=== PATIENT | female | born 1945 | race Two or more races ===

== ENCOUNTER 2018-11-20 18:06 | Emergency (ER) | payer OTHER ==
[~2018-11-20] VITALS: Ht 142.2 cm; Wt 45.4 kg
[2018-11-20 19:40] LABS: BASO # 0.1 x10^3/uL (0.0-0.2); BASO % 1 % (0-3); EOS # 0.5 x10^3/uL (0.0-0.7); EOS % 5 % (0-3); HEMATOCRIT 36.8 % (36.0-47.0); HEMOGLOBIN 12.6 g/dL (12.0-15.5); LYMPH # 5.2 x10^3/uL (1.0-4.8); LYMPH % 48 % (24-48); MEAN CORPUSCULAR HEMOGLOBIN 33 pg (25-35); MEAN CORPUSCULAR HGB CONC 34 g/dL (31-37); MEAN CORPUSCULAR VOLUME 96 fL (79-100); MONO # 0.8 x10^3/uL (0.0-1.1); MONO % 7 % (0-9); NEUT # 4.2 x10^3/uL (1.8-7.7); NEUT % 39 % (31-73); PLATELET COUNT 170 x10^3/uL (140-400); RED BLOOD COUNT 3.83 x10^6/uL (3.50-5.40); RED CELL DISTRIBUTION WIDTH 13.5 % (11.5-14.5); WHITE BLOOD COUNT 10.7 x10^3/uL (4.0-11.0)
[2018-11-20 19:49] LABS: PROTHROMBIN TIME PATIENT 13.7 SEC (11.7-14.0)
[2018-11-20 19:50] LABS: CALCIUM 9.2 mg/dL (8.5-10.1); GFR 54.1; POTASSIUM 4.2 mmol/L (3.5-5.1)
[2018-11-20 19:56] LABS: ALBUMIN 3.1 g/dL (3.4-5.0); ALBUMIN/GLOBULIN RATIO 0.6 (1.0-1.7); MAGNESIUM 1.4 mg/dL (1.8-2.4); TOTAL BILIRUBIN 0.4 mg/dL (0.2-1.0); TOTAL PROTEIN 8.2 g/dL (6.4-8.2)
[2018-11-20] MEDS ORDERED: cloNIDine HCL 0.1 MG TABLET PO ONE (20:00)
[2018-11-20] MEDS ORDERED: DEXAMETHASONE SOD PHOS 20 MG/5 ML VIAL. IV ONE (20:00)
[2018-11-20] MEDS ORDERED: ONDANSETRON PF 4 MG/2 ML VIAL. IV ONE (20:00)
[2018-11-20] MEDS ORDERED: diphenhydrAMINE 50 MG/ML VIAL IVP ONE (20:00)
[2018-11-20] MEDS ORDERED: LABETALOL 20 MG/4 ML DISP.SYRIN. IVP ONE (20:00)
[2018-11-20 20:19] LABS: BILIRUBIN,URINE NEGATIVE (NEG); CLARITY,URINE CLEAR; COLOR,URINE YELLOW; NITRITE,URINE NEGATIVE (NEG); PROTEIN,URINE 100 mg/dL (NEG-TRACE); UROBILINOGEN,URINE 0.2 mg/dL (0.2 mg/dL)
[2018-11-20 20:23] LABS: BACTERIA,URINE 0 /HPF (0-FEW); SQUAMOUS EPITHELIAL CELL,UR OCC /LPF; WBC,URINE 0 /HPF (0-4)
[2018-11-20] MEDS ORDERED: MAGNESIUM SULFATE 2GM 50 ML IV ONE (21:00)
--- NOTE | 2018-11-20 21:07 | RAD ---
Examination: CT HEAD WO CONTRAST History: Headache and hypertension Comparison/Correlation: None Findings: Axial images of the head were obtained without contrast. Atrophy is present. No intracranial hemorrhage, midline shift, or mass effect. Motion does limit evaluation at the skull base level. Mucosal thickening of ethmoid air cells is mild. Impression: No suspicious process. PQRS Compliance Statement: One or more of the following individualized dose reduction techniques were utilized for this examination: 1. Automated exposure control 2. Adjustment of the mA and/or kV according to patient size 3. Use of iterative reconstruction technique Electronically signed by: Elvin Davis MD (11/20/2018 9:04 PM) [facility]
--- NOTE | 2018-11-20 21:55 | PHYS DOC ---
Past Medical History Past Medical History: Asthma, GERD, Hypertension Past Surgical History: No Surgical History Smoking: Quit Greater Than 1 Year Alcohol Use: Occasionally Drug Use: None Adult General Chief Complaint Chief Complaint: HYPERTENSION HPI HPI 73 y/o female presents with report of CASTILLO, HTN, and cough over the last few days. Reports worse tonight. Patient reports complaince with her blood pressure medications. Denies fever/chills. Denies trauma. Denies neck pain. Denies nausea or vomiting . Review of Systems Review of Systems Constitutional: Denies fever or chills Eyes: Denies redness or eye pain HENT: Denies nasal congestion or sore throat Respiratory: Reports cough; denies shortness of breath Cardiovascular: Denies chest pain or palpitations GI: Denies abdominal pain, nausea, or vomiting : Denies dysuria or hematuria Musculoskeletal: Denies back pain or joint pain Integument: Denies rash or skin lesions Neurologic:Reports headache; denies focal weakness or sensory changes Complete systems were reviewed and found to be within normal limits, except as documented in this note. Current Medications Current Medications Current Medications Medications (Trade) Dose Ordered Sig/Sonia Start Time Stop Time Status Last Admin Dose Admin Clonidine HCl (Catapres) 0.1 mg 1X ONCE 11/20/18 20:00 11/20/18 20:01 DC 11/20/18 19:44 0.1 MG Dexamethasone Sodium Phosphate (Decadron) 10 mg 1X ONCE 11/20/18 20:00 11/20/18 20:01 DC 11/20/18 20:15 10 MG Diphenhydramine HCl (Benadryl) 25 mg 1X ONCE 11/20/18 20:00 11/20/18 20:01 DC 11/20/18 20:15 25 MG Labetalol HCl (Normodyne Iv Push) 10 mg 1X ONCE 11/20/18 20:00 11/20/18 20:01 DC 11/20/18 19:44 10 MG Magnesium Sulfate 50 ml @ 25 mls/hr 1X ONCE 11/20/18 21:00 11/20/18 22:49 DC 11/20/18 20:53 25 MLS/HR Ondansetron HCl (Zofran) 4 mg 1X ONCE 11/20/18 20:00 11/20/18 20:01 DC 11/20/18 20:15 4 MG Allergies Allergies Allergies Coded Allergies Type Severity Reaction Last Updated Verified amlodipine Allergy Intermediate 11/20/18 Yes Physical Exam Physical Exam Constitutional: Well developed, well nourished, no acute distress, non-toxic appearance HENT: Normocephalic, atraumatic, oropharynx moist Eyes: PERRL, EOMI, conjunctiva normal, no discharge, no nystagmus Neck: Normal range of motion, no tenderness, supple Cardiovascular: Heart rate normal, regular rhythm Lungs & Thorax: Bilateral breath sounds diminished at bases, no wheezing Abdomen: Soft, no tenderness Skin: Warm, dry, no erythema, no rash Extremities: No tenderness, ROM intact, no edema Neurologic: Alert and oriented X 3, normal motor function, normal sensory function, no focal deficits noted Psychologic: Affect normal, judgement normal, Current Patient Data Vital Signs Vital Signs Date Time Temp Pulse Resp B/P (MAP) Pulse Ox O2 Delivery O2 Flow Rate FiO2 11/20/18 22:30 69 97 11/20/18 19:44 212/97 11/20/18 19:00 98.8 20 Room Air 98.8 Lab Values Laboratory Tests Test 11/20/18 19:15 11/20/18 19:55 White Blood Count 10.7 x10^3/uL (4.0-11.0) Red Blood Count 3.83 x10^6/uL (3.50-5.40) Hemoglobin 12.6 g/dL (12.0-15.5) Hematocrit 36.8 % (36.0-47.0) Mean Corpuscular Volume 96 fL (79-100) Mean Corpuscular Hemoglobin 33 pg (25-35) Mean Corpuscular Hemoglobin Concent 34 g/dL (31-37) Red Cell Distribution Width 13.5 % (11.5-14.5) Platelet Count 170 x10^3/uL (140-400) Neutrophils (%) (Auto) 39 % (31-73) Lymphocytes (%) (Auto) 48 % (24-48) Monocytes (%) (Auto) 7 % (0-9) Eosinophils (%) (Auto) 5 % (0-3) H Basophils (%) (Auto) 1 % (0-3) Neutrophils # (Auto) 4.2 x10^3/uL (1.8-7.7) Lymphocytes # (Auto) 5.2 x10^3/uL (1.0-4.8) H Monocytes # (Auto) 0.8 x10^3/uL (0.0-1.1) Eosinophils # (Auto) 0.5 x10^3/uL (0.0-0.7) Basophils # (Auto) 0.1 x10^3/uL (0.0-0.2) Prothrombin Time 13.7 SEC (11.7-14.0) Prothrombin Time INR 1.1 (0.8-1.1) Activated Partial Thromboplast Time 30 SEC (24-38) Sodium Level 136 mmol/L (136-145) Potassium Level 4.2 mmol/L (3.5-5.1) Chloride Level 102 mmol/L (98-107) Carbon Dioxide Level 25 mmol/L (21-32) Anion Gap 9 (6-14) Blood Urea Nitrogen 7 mg/dL (7-20) Creatinine 1.0 mg/dL (0.6-1.0) Estimated GFR (Cockcroft-Gault) 54.1 BUN/Creatinine Ratio 7 (6-20) Glucose Level 119 mg/dL (70-99) H Calcium Level 9.2 mg/dL (8.5-10.1) Magnesium Level 1.4 mg/dL (1.8-2.4) L Total Bilirubin 0.4 mg/dL (0.2-1.0) Aspartate Amino Transferase (AST) 60 U/L (15-37) H Alanine Aminotransferase (ALT) 39 U/L (14-59) Alkaline Phosphatase 112 U/L (46-116) Creatine Kinase 95 U/L (26-192) Creatine Kinase MB (Mass) 0.8 ng/mL (0.0-3.6) Creatine Kinase MB Relative Index 0.8 % (0-4) Troponin I Quantitative < 0.017 ng/mL (0.000-0.055) Total Protein 8.2 g/dL (6.4-8.2) Albumin 3.1 g/dL (3.4-5.0) L Albumin/Globulin Ratio 0.6 (1.0-1.7) L Lipase 137 U/L (73-393) Urine Collection Type Unknown Urine Color Yellow Urine Clarity Clear Urine pH 7.0 Urine Specific [place] <=1.005 Urine Protein 100 mg/dL (NEG-TRACE) Urine Glucose (UA) Negative mg/dL (NEG) Urine Ketones (Stick) Negative mg/dL (NEG) Urine Blood Trace (NEG) Urine Nitrite Negative (NEG) Urine Bilirubin Negative (NEG) Urine Urobilinogen Dipstick 0.2 mg/dL (0.2 mg/dL) Urine Leukocyte Esterase Negative (NEG) Urine RBC 3-5 /HPF (0-2) Urine WBC 0 /HPF (0-4) Urine Squamous Epithelial Cells Occ /LPF Urine Bacteria 0 /HPF (0-FEW) Laboratory Tests 11/20/18 19:15 Laboratory Tests 11/20/18 19:15 EKG EKG @1908 NSR at 68bpm, NO ST elevation, QRS 76ms, QT/QTc 434/462ms Radiology/Procedures Radiology/Procedures PROCEDURE: CT HEAD WO CONTRAST Examination: CT HEAD WO CONTRAST History: Headache and hypertension Comparison/Correlation: None Findings: Axial images of the head were obtained without contrast. Atrophy is present. No intracranial hemorrhage, midline shift, or mass effect. Motion does limit evaluation at the skull base level. Mucosal thickening of ethmoid air cells is mild. Impression: No suspicious process. PQRS Compliance Statement: One or more of the following individualized dose reduction techniques were utilized for this examination: 1. Automated exposure control 2. Adjustment of the mA and/or kV according to patient size 3. Use of iterative reconstruction technique Electronically signed by: Elvin Davis MD (11/20/2018 9:04 PM) [facility] CXR 2 view (preliminary interpretation by ED physician) NO acute process Course & Med Decision Making Course & Med Decision Making Pertinent Labs and Imaging studies reviewed. (See chart for details) Patient presents with report of CASTILLO, cough, and generalized malaise over the last few days. Reports associated elevated blood pressure. BP addressed. Labs obtained and posted to chart. CT head without acute process. Patient with interval improvement. Patient stable for discharge with outpatient follow-up with PCP. Discussed findings and plan with patient and family, who acknowledge understanding and agreement. Dragon Disclaimer Dragon Disclaimer This electronic medical record was generated, in whole or in part, using a voice recognition dictation system. Departure Departure Impression: Primary Impression: Hypertension Additional Impression: Hypomagnesemia Disposition: 01 HOME, SELF-CARE Condition: IMPROVED Referrals: NO PCP (PCP) Patient Instructions: Hypertension, [id number], Hypomagnesemia Scripts Clonidine Hcl (CLONIDINE HCL) 0.1 Mg Tablet 0.1 MG PO BID PRN for ELEVATED BP, SEE COMMENTS, #14 TAB Take for systolic blood pressure (upper number) greater than 180 or for diastolic blood pressure (lower number) greater than 100. Prov: SHAWNA VILLEGAS DO 11/20/18 Problem Qualifiers Primary Impression: Hypertension Hypertension type: unspecified Qualified Codes: I10 - Essential (primary) hypertension SHAWNA VILLEGAS DO Nov 20, 2018 21:55
[2018-11-20] MEDS ORDERED: CLON0.1T PO (22:01)
[2018-11-20 22:30] VITALS: BP 133/71
--- NOTE | 2018-11-21 06:22 | EKG ---
[facility] [address] [place] [address] Test Date: 2018-11-20 Test Time: 19:08:08 Pat Name: MOSES RODRIGUEZ Department: Room: Gender: F [employer] Clerk: : 1945 Requested By: SHAWNA VILLEGAS Order Number: [id number] Reading MD: Measurements Intervals [place] Rate: 67 P: 141 CT: 172 QRS: -149 QRSD: 76 T: 171 QT: 434 QTc: 461 Interpretive Statements SUPRAVENTRICULAR RHYTHM ABNORMAL RIGHT SUPERIOR AXIS DEVIATION S1,S2,S3 PATTERN CONSIDER RIGHT VENTRICULAR HYPERTROPHY QRS(T) CONTOUR ABNORMALITY CONSIDER ANTEROSEPTAL MYOCARDIAL DAMAGE CONSISTENT WITH HIGH LATERAL INFARCT AGE UNDETERMINED T ABNORMALITY IN INFERIOR LEADS ABNORMAL ECG No previous ECG available for comparison
--- NOTE | 2018-11-21 07:59 | RAD ---
CHEST PA LATERAL History: Cough Comparison: None. Findings: No consolidation or pleural effusion. Normal heart size. Chronic appearing mid thoracic vertebral body compression deformities. Impression: 1. No acute cardiopulmonary process. Electronically signed by: Serafin Lerner DO (11/21/2018 7:57 AM) [id number]
== END 2018-11-20 22:49 | disposition home or self-care (01) ==
LOC: ER 18:06
DX: I10 Essential (primary) hypertension (principal); E83.42 Hypomagnesemia; R51 Headache; K21.9 Gastro-esophageal reflux disease without esophagitis; J45.909 Unspecified asthma, uncomplicated; Z87.891 Personal history of nicotine dependence; Z88.8 Allergy status to other drugs, medicaments and biological substances
CPT/HCPCS: 36415; 70450; 71046; 80053; 81001; 82553; 83690; 83735; 84484; 85025; 85610; 85730; 93005; 96365; 96375; 99285; J1100; J1200; J2405; J3475; J3490

== ENCOUNTER 2018-12-27 14:51 | Emergency (ER) | payer OTHER ==
[~2018-12-27] VITALS: Ht 142.2 cm; Wt 45.4 kg
[~2018-12-27 14:51] MED LIST: CLON0.1T PO
[2018-12-27] MEDS ORDERED: hydrALAZINE 25 MG TABLET PO SCH (15:15)
[2018-12-27] MEDS ORDERED: cloNIDine HCL 0.1 MG TABLET PO ONE (15:15)
--- NOTE | 2018-12-27 15:23 | PHYS DOC ---
Past Medical History Past Medical History: Asthma, GERD, Hypertension (JUNIOR TSANG APRN) Past Surgical History: No Surgical History (JUNIOR TSANG APRN) Alcohol Use: Occasionally Drug Use: None (JUNIOR TSANG APRN) Adult General Chief Complaint Chief Complaint: HYPERTENSION HPI HPI Patient is a 73 year old female who presents with cough, headache, hypertension x 2 days. Patient was here on 11/2018 and give n clonidine prescription for hypertension. Son states that the patient is out of the medication. When asked if the patient has followed up to receive blood pressure medication from a primary physician the son states no she has a appointment in 2 days. I asked with who and he states, "we are new here and I have just been taking her all over." The patient denies dizziness, syncope, soa, chest pain, visual changes, numbness or tingling, vomiting, nausea, abdominal pain, back pain. (JUNIOR TSANG APRN) Review of Systems Review of Systems Respiratory: cough or denies shortness of breath [] Cardiovascular: No additional information not addressed in HPI [] Neurologic: headache, denies focal weakness or sensory changes [] All other systems were reviewed and found to be within normal limits, except as documented in this note. (JUNIOR TSANG APRN) Current Medications Current Medications Current Medications Medications (Trade) Dose Ordered Sig/Sonia Start Time Stop Time Status Last Admin Dose Admin Clonidine HCl (Catapres) 0.1 mg 1X ONCE 12/27/18 15:15 12/27/18 15:10 DC Hydralazine HCl (Apresoline) 25 mg 1X 12/27/18 15:15 12/27/18 18:02 DC 12/27/18 15:54 25 MG Ketorolac Tromethamine (Toradol 30mg Vial) 30 mg 1X ONCE 12/27/18 16:45 12/27/18 16:46 DC 12/27/18 16:53 30 MG (SHANNON NATHAN MD) Allergies Allergies Allergies Coded Allergies Type Severity Reaction Last Updated Verified amlodipine Allergy Intermediate 11/20/18 Yes (SHANNON NATHAN MD) Physical Exam Physical Exam Constitutional: Well developed, well nourished, no acute distress, non-toxic appearance. [] HENT: Normocephalic, atraumatic, bilateral external ears normal, oropharynx moist, no oral exudates, nose normal. [] Eyes: PERRLA, EOMI, conjunctiva normal, no discharge. [] Cardiovascular:Heart rate regular rhythm, no murmur [] Lungs & Thorax: Bilateral breath sounds clear to auscultation [] Abdomen: Bowel sounds normal, soft, no tenderness, no masses, no pulsatile masses. [] Skin: Warm, dry, no erythema, no rash. [] Back: No tenderness, no CVA tenderness. [] Extremities: No tenderness, no cyanosis, no clubbing, ROM intact, no edema. [] Neurologic: Alert and oriented X 3, normal motor function, normal sensory function, no focal deficits noted. [] Psychologic: Affect normal, judgement normal, mood normal. Normal Physical Exam[] (JUNIOR TSANG APRN) Current Patient Data Vital Signs Vital Signs Date Time Temp Pulse Resp B/P (MAP) Pulse Ox O2 Delivery O2 Flow Rate FiO2 12/27/18 17:30 66 18 98 12/27/18 15:54 177/105 12/27/18 15:02 97.2 Room Air 97.2 (SHANNON NATHAN MD) Lab Values Laboratory Tests Test 12/27/18 15:16 12/27/18 16:48 White Blood Count 7.8 x10^3/uL (4.0-11.0) Red Blood Count 3.59 x10^6/uL (3.50-5.40) Hemoglobin 11.6 g/dL (12.0-15.5) L Hematocrit 34.5 % (36.0-47.0) L Mean Corpuscular Volume 96 fL (79-100) Mean Corpuscular Hemoglobin 32 pg (25-35) Mean Corpuscular Hemoglobin Concent 34 g/dL (31-37) Red Cell Distribution Width 13.3 % (11.5-14.5) Platelet Count 140 x10^3/uL (140-400) Neutrophils (%) (Auto) 41 % (31-73) Lymphocytes (%) (Auto) 47 % (24-48) Monocytes (%) (Auto) 7 % (0-9) Eosinophils (%) (Auto) 4 % (0-3) H Basophils (%) (Auto) 1 % (0-3) Neutrophils # (Auto) 3.2 x10^3/uL (1.8-7.7) Lymphocytes # (Auto) 3.7 x10^3/uL (1.0-4.8) Monocytes # (Auto) 0.6 x10^3/uL (0.0-1.1) Eosinophils # (Auto) 0.3 x10^3/uL (0.0-0.7) Basophils # (Auto) 0.0 x10^3/uL (0.0-0.2) Sodium Level 142 mmol/L (136-145) Potassium Level 4.1 mmol/L (3.5-5.1) Chloride Level 106 mmol/L (98-107) Carbon Dioxide Level 23 mmol/L (21-32) Anion Gap 13 (6-14) Blood Urea Nitrogen 12 mg/dL (7-20) Creatinine 1.0 mg/dL (0.6-1.0) Estimated GFR (Cockcroft-Gault) 54.1 BUN/Creatinine Ratio 12 (6-20) Glucose Level 97 mg/dL (70-99) Calcium Level 8.3 mg/dL (8.5-10.1) L Total Bilirubin 0.3 mg/dL (0.2-1.0) Aspartate Amino Transferase (AST) 65 U/L (15-37) H Alanine Aminotransferase (ALT) 35 U/L (14-59) Alkaline Phosphatase 115 U/L (46-116) Troponin I Quantitative < 0.017 ng/mL (0.000-0.055) Total Protein 7.4 g/dL (6.4-8.2) Albumin 3.1 g/dL (3.4-5.0) L Albumin/Globulin Ratio 0.7 (1.0-1.7) L Urine Collection Type Unknown Urine Color Yellow Urine Clarity Clear Urine pH 6.0 Urine Specific [place] <=1.005 Urine Protein 30 mg/dL (NEG-TRACE) Urine Glucose (UA) Negative mg/dL (NEG) Urine Ketones (Stick) Negative mg/dL (NEG) Urine Blood Trace (NEG) Urine Nitrite Negative (NEG) Urine Bilirubin Negative (NEG) Urine Urobilinogen Dipstick 0.2 mg/dL (0.2 mg/dL) Urine Leukocyte Esterase Negative (NEG) Urine RBC 1-2 /HPF (0-2) Urine WBC 0 /HPF (0-4) Urine Squamous Epithelial Cells Few /LPF Urine Bacteria 0 /HPF (0-FEW) Urine Opiates Screen Neg (NEG) Urine Methadone Screen Neg (NEG) Urine Barbiturates Neg (NEG) Urine Phencyclidine Screen Neg (NEG) Urine Amphetamine/Methamphetamine Neg (NEG) Urine Benzodiazepines Screen Neg (NEG) Urine Cocaine Screen Neg (NEG) Urine Cannabinoids Screen Neg (NEG) Urine Ethyl Alcohol Pos (NEG) Laboratory Tests 12/27/18 15:16 Laboratory Tests 12/27/18 15:16 (SHANNON NATHAN MD) Lab Values Laboratory Tests Test 12/27/18 15:16 White Blood Count 7.8 x10^3/uL (4.0-11.0) Red Blood Count 3.59 x10^6/uL (3.50-5.40) Hemoglobin 11.6 g/dL (12.0-15.5) L Hematocrit 34.5 % (36.0-47.0) L Mean Corpuscular Volume 96 fL (79-100) Mean Corpuscular Hemoglobin 32 pg (25-35) Mean Corpuscular Hemoglobin Concent 34 g/dL (31-37) Red Cell Distribution Width 13.3 % (11.5-14.5) Platelet Count 140 x10^3/uL (140-400) Neutrophils (%) (Auto) 41 % (31-73) Lymphocytes (%) (Auto) 47 % (24-48) Monocytes (%) (Auto) 7 % (0-9) Eosinophils (%) (Auto) 4 % (0-3) H Basophils (%) (Auto) 1 % (0-3) Neutrophils # (Auto) 3.2 x10^3/uL (1.8-7.7) Lymphocytes # (Auto) 3.7 x10^3/uL (1.0-4.8) Monocytes # (Auto) 0.6 x10^3/uL (0.0-1.1) Eosinophils # (Auto) 0.3 x10^3/uL (0.0-0.7) Basophils # (Auto) 0.0 x10^3/uL (0.0-0.2) Sodium Level 142 mmol/L (136-145) Potassium Level 4.1 mmol/L (3.5-5.1) Chloride Level 106 mmol/L (98-107) Carbon Dioxide Level 23 mmol/L (21-32) Anion Gap 13 (6-14) Blood Urea Nitrogen 12 mg/dL (7-20) Creatinine 1.0 mg/dL (0.6-1.0) Estimated GFR (Cockcroft-Gault) 54.1 BUN/Creatinine Ratio 12 (6-20) Glucose Level 97 mg/dL (70-99) Calcium Level 8.3 mg/dL (8.5-10.1) L Total Bilirubin 0.3 mg/dL (0.2-1.0) Aspartate Amino Transferase (AST) 65 U/L (15-37) H Alanine Aminotransferase (ALT) 35 U/L (14-59) Alkaline Phosphatase 115 U/L (46-116) Troponin I Quantitative < 0.017 ng/mL (0.000-0.055) Total Protein 7.4 g/dL (6.4-8.2) Albumin 3.1 g/dL (3.4-5.0) L Albumin/Globulin Ratio 0.7 (1.0-1.7) L Laboratory Tests 12/27/18 15:16 Laboratory Tests 12/27/18 15:16 (JUNIOR TSANG APRN) EKG EKG Sinus and no STEMI[] Interpretation Time: [address] Nathan (JUNIOR TSANG APRN) Radiology/Procedures Radiology/Procedures [] (JUNIOR TSANG APRN) Impressions: [facility] [address] [address] IMAGING REPORT Signed PATIENT: MOSES RODRIGUEZ ACCOUNT: [id number] : 1945 LOCATION: ER AGE: 73 SEX: F EXAM STATUS: PRE ER ORD. PHYSICIAN: JUNIOR TSANG APRN REASON: HTN, cough PROCEDURE: CHEST PA & LATERAL EXAM: Chest, 2 views. HISTORY: Cough. Hypertension. COMPARISON: 11/20/2018. FINDINGS: 2 views of the chest are obtained. There is no infiltrate, pleural effusion or pneumothorax. There is mild suspected chronic increased interstitial opacity. The heart is normal in size. IMPRESSION: No acute pulmonary finding. Electronically signed by: Mana Lee MD (12/27/2018 3:34 PM) [facility] DICTATED and SIGNED BY: MANA LEE MD DATE: 12/27/18 1534 [facility] [address] [place] [address] IMAGING REPORT Signed PATIENT: MOSES RODRIGUEZ ACCOUNT: [id number] : 1945 LOCATION: ER AGE: 73 SEX: F EXAM STATUS: REG ER ORD. PHYSICIAN: JUNIOR TSANG APRN REASON: headache, htn PROCEDURE: CT HEAD WO CONTRAST CT HEAD WO CONTRAST History: Headache. Hypertension Comparison: None. Technique: Noncontrast CT imaging was performed of the head. Exposure: One or more of the following individualized dose reduction techniques were utilized for this examination: 1. Automated exposure control 2. Adjustment of the mA and/or kV according to patient size 3. Use of iterative reconstruction technique. Findings: No intracranial hemorrhage. No mass effect. No hydrocephalus. Mild brain parenchymal volume loss. Imaged orbits are unremarkable. Mild paranasal sinus because of thickening. Mastoid air cells are clear. Unfused C1 anterior posterior arch. Impression: 1. No acute intracranial abnormality. Electronically signed by: Serafin Lerner DO (12/27/2018 3:58 PM) [id number] DICTATED and SIGNED BY: SERAFIN LERNER DO DATE: 12/27/18 1550 (JUNIOR TSANG APRN) Course & Med Decision Making Course & Med Decision Making Patient denies any pain. Lungs are clear to auscultation. Son states that the patient took clonidine at 1000 this morning. Patients blood pressure is 170/111. Alert and oriented. Son is interpreting for patient. Skin pink warm and dry. Ambulatory with steady gait. EKG is sinus rhythm and no STEMI. Since patient is symptomatic with headache, I have given the patient hydralazine. PERRLA. Denies any weaknesses. Abdomen is soft and nontender. No extremity edema. Son states the patient stopped smoking in 2015. Blood pressure is 165/106. Patient states her headache is better. Patient is resting comfortably. Patient is discharged home on HCTZ 25MG Daily. I have consulted with Dr Nathan on this patient. (JUNIOR TSANG APRN) Dragon Disclaimer Dragon Disclaimer This electronic medical record was generated, in whole or in part, using a voice recognition dictation system. (JUNIOR TSANG APRN) NIHSS Stroke Scale NIH Stroke Scale: NIH Stroke Scale Response (Comments) Value Level of Consciousness: 0 Alert/Responsive 0 LOC Questions: 0 Answers both correctly 0 LOC Commands: 0 Performs both tasks 0 Best Gaze: 0 Normal 0 Visual: 0 No visual loss 0 Facial Palsy: 0 Normal, symmetrical 0 Motor - Left Arm 0 No drift 0 Motor - Right Arm 0 No drift 0 Motor - Left Leg 0 No drift 0 Motor: Right Leg 0 No drift 0 Limb Ataxia: 0 Absent 0 Sensory: 0 No loss 0 Best Language: 0 Normal 0 Dysathria: 0 Normal 0 Extinction and Inattention: 0 Normal 0 Total 0 Departure Departure Impression: Primary Impression: Hypertension Disposition: HOME, SELF-CARE Condition: STABLE Referrals: NO PCP (PCP) Patient Instructions: Hypertension Additional Instructions: Follow up with primary care provider as soon as possible for blood pressure monitoring. Scripts Hydrochlorothiazide (HYDROCHLOROTHIAZIDE TABLET) 50 Mg Tablet 25 MG PO DAILY for DIURETIC, #30 TAB 0 Refills Prov: JUNIOR TSANG APRN 12/27/18 Attending Signature I have participated in the care of this patient and I have reviewed and agree with all pertinent clinical information above including history, exam, and recommendations. (SHANNON NATHAN MD) Problem Qualifiers Primary Impression: Hypertension Hypertension type: essential hypertension Qualified Codes: I10 - Essential (primary) hypertension JUNIOR TSANG APRN Dec 27, 2018 15:22 SHANNON NATHAN MD Jan 01, 2019 18:20
[2018-12-27 15:35] LABS: BASO % 1 % (0-3); EOS # 0.3 x10^3/uL (0.0-0.7); EOS % 4 % (0-3); HEMATOCRIT 34.5 % (36.0-47.0); HEMOGLOBIN 11.6 g/dL (12.0-15.5); LYMPH # 3.7 x10^3/uL (1.0-4.8); LYMPH % 47 % (24-48); MEAN CORPUSCULAR HEMOGLOBIN 32 pg (25-35); MEAN CORPUSCULAR HGB CONC 34 g/dL (31-37); MEAN CORPUSCULAR VOLUME 96 fL (79-100); MONO # 0.6 x10^3/uL (0.0-1.1); MONO % 7 % (0-9); NEUT # 3.2 x10^3/uL (1.8-7.7); NEUT % 41 % (31-73); PLATELET COUNT 140 x10^3/uL (140-400); RED BLOOD COUNT 3.59 x10^6/uL (3.50-5.40); RED CELL DISTRIBUTION WIDTH 13.3 % (11.5-14.5); WHITE BLOOD COUNT 7.8 x10^3/uL (4.0-11.0)
--- NOTE | 2018-12-27 15:37 | RAD ---
EXAM: Chest, 2 views. HISTORY: Cough. Hypertension. COMPARISON: 11/20/2018. FINDINGS: 2 views of the chest are obtained. There is no infiltrate, pleural effusion or pneumothorax. There is mild suspected chronic increased interstitial opacity. The heart is normal in size. IMPRESSION: No acute pulmonary finding. Electronically signed by: Mana Cherry MD (12/27/2018 3:34 PM) [facility]
[2018-12-27 15:39] LABS: CALCIUM 8.3 mg/dL (8.5-10.1); GFR 54.1; POTASSIUM 4.1 mmol/L (3.5-5.1)
[2018-12-27 15:45] LABS: ALBUMIN 3.1 g/dL (3.4-5.0); ALBUMIN/GLOBULIN RATIO 0.7 (1.0-1.7); TOTAL BILIRUBIN 0.3 mg/dL (0.2-1.0); TOTAL PROTEIN 7.4 g/dL (6.4-8.2)
--- NOTE | 2018-12-27 16:01 | RAD ---
CT HEAD WO CONTRAST History: Headache. Hypertension Comparison: None. Technique: Noncontrast CT imaging was performed of the head. Exposure: One or more of the following individualized dose reduction techniques were utilized for this examination: 1. Automated exposure control 2. Adjustment of the mA and/or kV according to patient size 3. Use of iterative reconstruction technique. Findings: No intracranial hemorrhage. No mass effect. No hydrocephalus. Mild brain parenchymal volume loss. Imaged orbits are unremarkable. Mild paranasal sinus because of thickening. Mastoid air cells are clear. Unfused C1 anterior posterior arch. Impression: 1. No acute intracranial abnormality. Electronically signed by: Serafin Lerner DO (12/27/2018 3:58 PM) [id number]
[2018-12-27] MEDS ORDERED: KETOROLAC 30 MG/ML VIAL. IVP ONE (16:45)
[2018-12-27 16:55] LABS: BILIRUBIN,URINE NEGATIVE (NEG); CLARITY,URINE CLEAR; COLOR,URINE YELLOW; NITRITE,URINE NEGATIVE (NEG); PROTEIN,URINE 30 mg/dL (NEG-TRACE); UROBILINOGEN,URINE 0.2 mg/dL (0.2 mg/dL)
[2018-12-27 17:01] LABS: SQUAMOUS EPITHELIAL CELL,UR FEW /LPF
[2018-12-27 17:02] LABS: AMPHETAMINE/METHAMPHETAMINE NEG (NEG); BACTERIA,URINE 0 /HPF (0-FEW); BARBITURATES NEG (NEG); BENZODIAZEPINES NEG (NEG); CANNABINOIDS NEG (NEG); COCAINE NEG (NEG); METHADONE NEG (NEG); OPIATES NEG (NEG); PHENCYCLIDINE NEG (NEG); WBC,URINE 0 /HPF (0-4)
[2018-12-27] MEDS ORDERED: HYDR50TA6 PO (17:03)
[2018-12-27 17:30] VITALS: BP 188/98
--- NOTE | 2018-12-28 13:48 | EKG ---
[facility] [address] [place] [address] Test Date: 2018-12-27 Test Time: 15:04:02 Pat Name: MOSES RODRIGUEZ Department: Room: Gender: F [employer] Operator: : 1945 Requested By: JUNIOR TSANG Order Number: [id number] Reading MD: Measurements Intervals [place] Rate: 75 P: 42 TN: 168 QRS: -24 QRSD: 80 T: 9 QT: 406 QTc: 456 Interpretive Statements SINUS RHYTHM LEFTWARD AXIS QRS(T) CONTOUR ABNORMALITY CONSIDER ANTEROLATERAL MYOCARDIAL DAMAGE CONSIDER INFERIOR MYOCARDIAL DAMAGE POSSIBLY ABNORMAL ECG RI6.01 No previous ECG available for comparison
== END 2018-12-27 17:47 | disposition home or self-care (01) ==
LOC: ER 14:51
DX: I10 Essential (primary) hypertension (principal); R51 Headache; R05 Cough; J45.909 Unspecified asthma, uncomplicated; K21.9 Gastro-esophageal reflux disease without esophagitis; Z88.8 Allergy status to other drugs, medicaments and biological substances
CPT/HCPCS: 36415; 70450; 71046; 80053; 80307; 81001; 84484; 85025; 93005; 96374; 99285; J1885

== ENCOUNTER 2019-04-10 09:23 | Inpatient (IN) | payer OTHER ==
[~2019-04-10] VITALS: Ht 134.6 cm; Wt 50.0 kg
[~2019-04-10 09:23] MED LIST changes: +HYDR50TA6 PO
--- NOTE | 2019-04-10 09:44 | PHYS DOC ---
Past Medical History Past Medical History: Asthma, GERD, Hypertension Past Surgical History: No Surgical History Smoking Status: Former Smoker Alcohol Use: Occasionally Drug Use: None Adult General Chief Complaint Chief Complaint: HEADACHE HPI HPI Patient is a 73 year old female who presents with 4 days of left-sided facial swelling and headache. States she is coughing so hard that it makes her head hurt in her chest hurt. Patient and son are poor historians. Patient states that she did take her hypertensive medication's morning. She denies fever or taking any medications before coming. Patient has no teeth as they have all been pulled. Review of Systems Review of Systems Eyes: Denies change in visual acuity, redness, or eye pain. Blurred intermittent [] HENT: nasal congestion or denies sore throat [] Respiratory: cough or denies shortness of breath [] Cardiovascular:Mid chest pain with cough Neurologic: facial headache, denies focal weakness or sensory changes [] All other systems were reviewed and found to be within normal limits, except as documented in this note. Current Medications Current Medications Current Medications Medications (Trade) Dose Ordered Sig/Sonia Start Time Stop Time Status Last Admin Dose Admin Acetaminophen (Tylenol) 650 mg PRN Q4HRS PRN 04/10/19 12:00 04/11/19 11:59 Diphenhydramine HCl (Benadryl) 25 mg 1X ONCE 04/10/19 09:45 04/10/19 09:46 DC 04/10/19 10:22 25 MG Fentanyl Citrate (Fentanyl 2ml Vial) 50 mcg PRN Q1HR PRN 04/10/19 12:00 04/11/19 11:59 Ketorolac Tromethamine (Toradol 30mg Vial) 30 mg 1X ONCE 04/10/19 09:45 04/10/19 09:46 DC 04/10/19 10:23 30 MG Ondansetron HCl (Zofran) 4 mg PRN Q8HRS PRN 04/10/19 12:00 04/11/19 11:59 Piperacillin Sod/ Tazobactam Sod 3.375 gm/Sodium Chloride 50 ml @ 100 mls/hr 1X ONCE 04/10/19 11:30 04/10/19 11:59 Prochlorperazine Edisylate (Compazine) 10 mg 1X ONCE 04/10/19 09:45 04/10/19 09:46 DC 04/10/19 10:23 10 MG Allergies Allergies Allergies Coded Allergies Type Severity Reaction Last Updated Verified amlodipine Allergy Intermediate 11/20/18 Yes Physical Exam Physical Exam Constitutional: Well developed, well nourished, no acute distress, non-toxic appearance. [] HENT: Normocephalic, atraumatic, bilateral external ears normal, oropharynx moist, no oral exudates, nose normal. [] Eyes: PERRLA, EOMI, conjunctiva normal, no discharge. [] Neck: Normal range of motion, no tenderness, supple, no stridor. [] Cardiovascular:Heart rate regular rhythm, no murmur [] Lungs & Thorax: Bilateral breath sounds clear to auscultation [] Abdomen: Bowel sounds normal, soft, no tenderness, no masses, no pulsatile masses. [] Skin: Warm, dry, no erythema, no rash. [] Back: No tenderness, no CVA tenderness. [] Extremities: No tenderness, no cyanosis, no clubbing, ROM intact, no edema. [] Neurologic: Alert and oriented X 3, normal motor function, normal sensory function, no focal deficits noted. [] Psychologic: Affect normal, judgement normal, mood normal. Normal Physical Exam[] Current Patient Data Vital Signs Vital Signs Date Time Temp Pulse Resp B/P (MAP) Pulse Ox O2 Delivery O2 Flow Rate FiO2 04/10/19 09:42 98.5 59 18 125/60 (81) 99 Room Air 98.5 Lab Values Laboratory Tests Test 04/10/19 09:49 White Blood Count 7.7 x10^3/uL (4.0-11.0) Red Blood Count 3.23 x10^6/uL (3.50-5.40) L Hemoglobin 10.4 g/dL (12.0-15.5) L Hematocrit 32.2 % (36.0-47.0) L Mean Corpuscular Volume 100 fL (79-100) Mean Corpuscular Hemoglobin 32 pg (25-35) Mean Corpuscular Hemoglobin Concent 32 g/dL (31-37) Red Cell Distribution Width 13.3 % (11.5-14.5) Platelet Count 132 x10^3/uL (140-400) L Neutrophils (%) (Auto) 52 % (31-73) Lymphocytes (%) (Auto) 38 % (24-48) Monocytes (%) (Auto) 7 % (0-9) Eosinophils (%) (Auto) 3 % (0-3) Basophils (%) (Auto) 1 % (0-3) Neutrophils # (Auto) 4.0 x10^3/uL (1.8-7.7) Lymphocytes # (Auto) 2.9 x10^3/uL (1.0-4.8) Monocytes # (Auto) 0.5 x10^3/uL (0.0-1.1) Eosinophils # (Auto) 0.2 x10^3/uL (0.0-0.7) Basophils # (Auto) 0.0 x10^3/uL (0.0-0.2) Segmented Neutrophils % 47 % (35-66) Band Neutrophils % 1 % (0-9) Lymphocytes % 46 % (24-48) Monocytes % 3 % (0-10) Eosinophils % 3 % (0-5) Platelet Estimate Adequate (ADEQUATE) Sodium Level 140 mmol/L (136-145) Potassium Level 5.2 mmol/L (3.5-5.1) H Chloride Level 107 mmol/L (98-107) Carbon Dioxide Level 19 mmol/L (21-32) L Anion Gap 14 (6-14) Blood Urea Nitrogen 16 mg/dL (7-20) Creatinine 1.1 mg/dL (0.6-1.0) H Estimated GFR (Cockcroft-Gault) 48.4 BUN/Creatinine Ratio 15 (6-20) Glucose Level 120 mg/dL (70-99) H Calcium Level 8.6 mg/dL (8.5-10.1) Total Bilirubin 0.4 mg/dL (0.2-1.0) Aspartate Amino Transferase (AST) 33 U/L (15-37) Alanine Aminotransferase (ALT) 29 U/L (14-59) Alkaline Phosphatase 115 U/L (46-116) Troponin I Quantitative < 0.017 ng/mL (0.000-0.055) Total Protein 7.6 g/dL (6.4-8.2) Albumin 3.5 g/dL (3.4-5.0) Albumin/Globulin Ratio 0.9 (1.0-1.7) L Laboratory Tests 04/10/19 09:49 Laboratory Tests 04/10/19 09:49 EKG EKG Sinus Rhythm and no STEMI Interpretation Time: [address] Sommers Radiology/Procedures Radiology/Procedures [] Impressions: [facility] [address] [place] [address] IMAGING REPORT Signed PATIENT: MOSES RODRIGUEZ ACCOUNT: [id number] : 1945 LOCATION: ER AGE: 73 SEX: F EXAM STATUS: PRE ER ORD. PHYSICIAN: JUNIOR TSANG APRN REASON: cough, chest pain PROCEDURE: CHEST PA & LATERAL CHEST PA LATERAL History: Cough and chest pain Comparison: 12/27/2018 two-view chest x-ray exam. Findings: Frontal and lateral views of the chest were obtained. The cardiomediastinal silhouette is normal. Pulmonary vasculature is normal. The lungs are clear. No pleural effusion or pneumothorax is seen. There is no acute bone abnormality. IMPRESSION: No acute cardiopulmonary process. Electronically signed by: Elvin Schmid MD (04/10/2019 9:53 AM) [id number] DICTATED and SIGNED BY: ELVIN SCHMID MD DATE: 04/10/19 0953 [facility] [address] [place] [address] IMAGING REPORT Signed PATIENT: MOSES RODRIGUEZ ACCOUNT: [id number] : 1945 LOCATION: ER AGE: 73 SEX: F EXAM STATUS: REG ER ORD. PHYSICIAN: JUNIOR TSANG APRN REASON: head ache and facial swelling PROCEDURE: CT HEAD AND MAXILLOFACIAL WO EXAM: CT Head without IV contrast INDICATION: Headache and facial swelling TECHNIQUE: Multi-detector row CT images were obtained of the head without the use of IV contrast. All CT scans performed at this facility utilize dose optimization techniques as appropriate to the exam, including the following: Automated exposure control and adjustment of the mA and/or KV according to patient size (this includes techniques or standardized protocols for targeted exams where dose is indication/reason for exam). COMPARISON: None FINDINGS: BRAIN PARENCHYMA: No evidence of acute intraparenchymal hemorrhage or infarct. Mild generalized parenchymal volume loss and minimal white matter low density compatible chronic ischemic microvascular changes present. VENTRICLES & EXTRA-AXIAL SPACES: Ventricles are within normal limits. Basilar cisterns are patent. No pathologic extra-axial fluid collection or mass. ORBITS: Orbital contents are unremarkable. SINUSES: Mucosal thickening in the right maxillary sinus. Visualized paranasal sinuses and mastoid air cells are otherwise clear. OSSEOUS & SOFT TISSUES: Calvarium and skull base are intact. IMPRESSION: No acute intracranial pathology. Sinus mucosal disease. EXAM: CT Maxillofacial with IV contrast INDICATION: Headache and facial swelling TECHNIQUE: Multi-detector row CT images were obtained through the maxillofacial region with the use of IV contrast. Post-processing reconstructed images were obtained for interpretation. All CT scans performed at this facility utilize dose optimization techniques as appropriate to the exam, including the following: Automated exposure control and adjustment of the mA and/or KV according to patient size (this includes techniques or standardized protocols for targeted exams where dose is indication/reason for exam). IV CONTRAST: Administered COMPARISON: None FINDINGS: OSSEOUS: No evidence of fracture or bone destruction. VISUALIZED INTRACRANIAL STRUCTURES: Unremarkable. ORBITS: Orbital contents are unremarkable.. SINUSES: There is diffuse mucosal thickening in the right maxillary sinus with occlusion of the right maxillary sinus ostium. Soft tissue in the right maxillary sinus is mildly dense. There is some mild soft tissue stranding in the right-sided retroantral fat. No air-fluid levels. Right conchal bullosa. Minimal mucosal thickening in the left maxillary antrum. No air-fluid levels. The rest of the paranasal sinuses are well aerated. SOFT TISSUES: Bilateral calcifications in the carotid bulbs with mild retropharyngeal course of both cervical internal carotid arteries. On axial image 22 of 53 on series 10, focal skin thickening and stranding in the subcutaneous fat of the prepatellar soft tissues is identified on the left that could represent an inflamed skin lesion. IMPRESSION: Right maxillary sinus inflammatory disease with soft tissue stranding in the right retroantral fat. Correlate clinically for any evidence of invasive fungal sinusitis. FOR INTERNAL CODING PURPOSES Critical result: Findings discussed with JUNIOR TSANG at 04/10/2019 10:47 AM. RESULT CODE: (C) Electronically signed by: Amrit Johnson MD (04/10/2019 10:48 AM) [facility] DICTATED and SIGNED BY: AMRIT JOHNSON MD DATE: 04/10/19 1048 Course & Med Decision Making Course & Med Decision Making Patient states this is the worse headache she's ever had. Alert and oriented. Ambulatory with steady gait. Patient states that times her vision will be blurry. She rates her pain a 10 out of 10. Speaks in full clear sentences. Patient knows some Turkish but the son does speak Turkish and translates. No extremity swelling. Lungs are clear to auscultation all lobes. Vital signs are within normal limits. PERRLA. Patient denies shortness of breath, abdominal pain, nausea, vomiting, fever, diarrhea, constipation, back pain, dysuria, dizziness, numbness or tingling, syncope, weakness. Alert and oriented. Skin pink warm and dry. Lungs are clear to auscultation in all lobes. Patient does have maxillary sinus tenderness with palpation bilaterally. Patient has 1+ facial swelling on the left side in the maxillary sinus area. Denies any injury or hitting her head or falls. The chest pain is not reproducible with palpation. Patient states the coughing makes her chest hurts but she does not have chest pain at this time. Denies any neck pain. Full range of motion of her neck. No tenderness to the neck. No lymph nodes. Patient states she does have some sinus congestion. Potassium 5.2. CT Maxillosinus shows IMPRESSION: Right maxillary sinus inflammatory disease with soft tissue stranding in the right retroantral fat. Correlate clinically for any evidence of invasive fungal sinusitis. I have spoken to Dr Lj WU concerning CT findings and she states to admit and she will do a scope to take a look. She states she start the patient on Zosyn. I have spoken to Dr Monique for admission. He states to also consult ID. He stat es to ask my ED doctor to do a LP. I have spoken to Dr Sommers concerning LP. Dr Sommers and I have spoken to the son and patient about a LP and what we are looking for with this test and what the procedure itself is. The patient and son both refuse procedure. Dragon Disclaimer Dragon Disclaimer This electronic medical record was generated, in whole or in part, using a voice recognition dictation system. The HEART Score for CP Pts HEART Score for Chest Pain: HEART Score for Chest Pain Response (Comments) Value History Slighlty/Non-Suspicious 0 ECG Normal 0 Age > 65 2 Risk Factors 1 or 2 Risk Factors 1 Troponin < Normal Limit 0 Total 3 Risk Factors: Risk Factors: DM, Current or recent (<one month) smoker, HTN, HLP, family history of CAD, obesity. Risk Scores: Score 0 - 3: 2.5% MACE over next 6 weeks - Discharge Home Score 4 - 6: 20.3% MACE over next 6 weeks - Admit for Clinical Observation Score 7 - 10: 72.7% MACE over next 6 weeks - Early Invasive Strategies Departure Departure Impression: Primary Impression: Headache Additional Impression: Sinusitis Disposition: 09 ADMITTED INPATIENT Admitting Physician: HIMChavez Condition: STABLE Referrals: NO PCP (PCP) Problem Qualifiers Primary Impression: Headache Headache type: unspecified Headache chronicity pattern: acute headache Intractability: not intractable Qualified Codes: R51 - Headache Additional Impression: Sinusitis Sinusitis location: maxillary Chronicity: acute Recurrence: non- recurrent Qualified Codes: J01.00 - Acute maxillary sinusitis, unspecified JUNIOR TSANG COLOR MAKER DYER Apr 10, 2019 09:44
[2019-04-10] MEDS ORDERED: PROCHLORPERAZINE 10 MG/2 ML VIAL. IV ONE (09:45)
[2019-04-10] MEDS ORDERED: diphenhydrAMINE HCL 25 MG CAPSULE PO ONE (09:45)
[2019-04-10] MEDS ORDERED: KETOROLAC 30 MG/ML VIAL. IVP ONE (09:45)
--- NOTE | 2019-04-10 09:56 | RAD ---
CHEST PA LATERAL History: Cough and chest pain Comparison: 12/27/2018 two-view chest x-ray exam. Findings: Frontal and lateral views of the chest were obtained. The cardiomediastinal silhouette is normal. Pulmonary vasculature is normal. The lungs are clear. No pleural effusion or pneumothorax is seen. There is no acute bone abnormality. IMPRESSION: No acute cardiopulmonary process. Electronically signed by: Elvin Davis MD (04/10/2019 9:53 AM) [id number]
[2019-04-10 10:08] LABS: BASO % 1 % (0-3); EOS # 0.2 x10^3/uL (0.0-0.7); EOS % 3 % (0-3); HEMATOCRIT 32.2 % (36.0-47.0); HEMOGLOBIN 10.4 g/dL (12.0-15.5); LYMPH # 2.9 x10^3/uL (1.0-4.8); LYMPH % 38 % (24-48); MEAN CORPUSCULAR HEMOGLOBIN 32 pg (25-35); MEAN CORPUSCULAR HGB CONC 32 g/dL (31-37); MEAN CORPUSCULAR VOLUME 100 fL (79-100); MONO # 0.5 x10^3/uL (0.0-1.1); MONO % 7 % (0-9); NEUT % 52 % (31-73); PLATELET COUNT 132 x10^3/uL (140-400); RED BLOOD COUNT 3.23 x10^6/uL (3.50-5.40); RED CELL DISTRIBUTION WIDTH 13.3 % (11.5-14.5); WHITE BLOOD COUNT 7.7 x10^3/uL (4.0-11.0)
[2019-04-10 10:22] LABS: CALCIUM 8.6 mg/dL (8.5-10.1); CREATININE 1.1 mg/dL (0.6-1.0); GFR 48.4; POTASSIUM 5.2 mmol/L (3.5-5.1)
[2019-04-10 10:27] LABS: ALBUMIN 3.5 g/dL (3.4-5.0); ALBUMIN/GLOBULIN RATIO 0.9 (1.0-1.7); TOTAL BILIRUBIN 0.4 mg/dL (0.2-1.0); TOTAL PROTEIN 7.6 g/dL (6.4-8.2)
--- NOTE | 2019-04-10 10:51 | RAD ---
EXAM: CT Head without IV contrast INDICATION: Headache and facial swelling TECHNIQUE: Multi-detector row CT images were obtained of the head without the use of IV contrast. All CT scans performed at this facility utilize dose optimization techniques as appropriate to the exam, including the following: Automated exposure control and adjustment of the mA and/or KV according to patient size (this includes techniques or standardized protocols for targeted exams where dose is indication/reason for exam). COMPARISON: None FINDINGS: BRAIN PARENCHYMA: No evidence of acute intraparenchymal hemorrhage or infarct. Mild generalized parenchymal volume loss and minimal white matter low density compatible chronic ischemic microvascular changes present. VENTRICLES & EXTRA-AXIAL SPACES: Ventricles are within normal limits. Basilar cisterns are patent. No pathologic extra-axial fluid collection or mass. ORBITS: Orbital contents are unremarkable. SINUSES: Mucosal thickening in the right maxillary sinus. Visualized paranasal sinuses and mastoid air cells are otherwise clear. OSSEOUS & SOFT TISSUES: Calvarium and skull base are intact. IMPRESSION: No acute intracranial pathology. Sinus mucosal disease. EXAM: CT Maxillofacial with IV contrast INDICATION: Headache and facial swelling TECHNIQUE: Multi-detector row CT images were obtained through the maxillofacial region with the use of IV contrast. Post-processing reconstructed images were obtained for interpretation. All CT scans performed at this facility utilize dose optimization techniques as appropriate to the exam, including the following: Automated exposure control and adjustment of the mA and/or KV according to patient size (this includes techniques or standardized protocols for targeted exams where dose is indication/reason for exam). IV CONTRAST: Administered COMPARISON: None FINDINGS: OSSEOUS: No evidence of fracture or bone destruction. VISUALIZED INTRACRANIAL STRUCTURES: Unremarkable. ORBITS: Orbital contents are unremarkable.. SINUSES: There is diffuse mucosal thickening in the right maxillary sinus with occlusion of the right maxillary sinus ostium. Soft tissue in the right maxillary sinus is mildly dense. There is some mild soft tissue stranding in the right-sided retroantral fat. No air-fluid levels. Right conchal bullosa. Minimal mucosal thickening in the left maxillary antrum. No air-fluid levels. The rest of the paranasal sinuses are well aerated. SOFT TISSUES: Bilateral calcifications in the carotid bulbs with mild retropharyngeal course of both cervical internal carotid arteries. On axial image 22 of 53 on series 10, focal skin thickening and stranding in the subcutaneous fat of the prepatellar soft tissues is identified on the left that could represent an inflamed skin lesion. IMPRESSION: Right maxillary sinus inflammatory disease with soft tissue stranding in the right retroantral fat. Correlate clinically for any evidence of invasive fungal sinusitis. FOR INTERNAL CODING PURPOSES Critical result: Findings discussed with JUNIOR TSANG at 04/10/2019 10:47 AM. RESULT CODE: (C) Electronically signed by: Sarina Celis MD (04/10/2019 10:48 AM) [facility]
[2019-04-10 11:08] LABS: % BANDS 1 % (0-9); % EOS 3 % (0-5); % LYMPHS 46 % (24-48); % MONOS 3 % (0-10); % SEGS 47 % (35-66)
[2019-04-10 11:11] LABS: PLT ESTIMATE ADEQUATE (ADEQUATE)
[2019-04-10] MEDS ORDERED: PIPERACILLIN/TAZOBACTAM 3.375 GM in IV NORMAL SALINE 50ML 50 ML IV ONE (11:30)
[2019-04-10] MEDS ORDERED: ONDANSETRON PF 4 MG/2 ML VIAL. IV PRN (12:00)
[2019-04-10] MEDS ORDERED: fentaNYL PF VIAL 100 MCG/2 ML VIAL IV PRN (12:00)
[2019-04-10] MEDS ORDERED: ACETAMINOPHEN 325 MG TABLET. PO PRN (12:00)
[2019-04-10 12:18] VITALS: BP 107/67
[2019-04-10] MEDS ORDERED: METO200T46 PO (14:10)
[2019-04-10] MEDS ORDERED: LISI-130 PO (14:10)
[2019-04-10] MEDS ORDERED: OMEP40CA45 PO (14:10)
[2019-04-10] MEDS ORDERED: AMLO10TA8 PO (14:10)
--- NOTE | 2019-04-10 14:45 | PDOC2 ---
CONSULT Date of Consult Date of Consult DATE: 04/10/19 TIME: 14:28 Reason for Consult Reason for Consult: headaches and question of invasive fungal sinusitis on CT imaging Referring Physician Referring Physician: ER Identification/Chief Complaint Chief Complaint headaches Source Source: Caregiver History of Present Illness Reason for Visit: 73 year old female Vietnamese women presented to ER today for evaluation of headaches. I obtained history by discussing with patient's through [employer]. reports that symptoms began 3 days ago. She localized pain to right face. Pain can radiated to left face and back of head. She denies any nasal congestion, nasal drainage, change in smell. She denies any pain when opening mouth. No vision changes or eye pain. She does have slight dizziness w ith headaches. CT imaging done in ER showed right maxillary sinus inflammation. It did show some fat stranding posterolateral to right maxillary sinus on the imaging. Radiologist was concerned about possible invasive fungal sinusitis. Patient was admitted to hospital for work-up. Patient is comfortably laying in bed during entire encounter. She has no further pain after medications given. She is former smoker, quit 3 years ago. No immunocompromise history. Past Medical History Cardiovascular: HTN Past Surgical History Past Surgical History denies any previous surgical history Social History Quit ALCOHOL: none Drugs: None Lives: with Family Current Problem List Problem List Problems Medical Problems: (1) Headache Status: Acute (2) Sinusitis Status: Acute Current Medications Current Medications Current Medications Prochlorperazine Edisylate (Compazine) 10 mg 1X ONCE IV Last administered on 04/10/19at 10:23; Start 04/10/19 at 09:45; Stop 04/10/19 at 09:46; Status DC Diphenhydramine HCl (Benadryl) 25 mg 1X ONCE PO Last administered on 04/10/19at 10:22; Start 04/10/19 at 09:45; Stop 04/10/19 at 09:46; Status DC Ketorolac Tromethamine (Toradol 30mg Vial) 30 mg 1X ONCE IVP Last administered on 04/10/19at 10:23; Start 04/10/19 at 09:45; Stop 04/10/19 at 09:46; Status DC Piperacillin Sod/ Tazobactam Sod 3.375 gm/Sodium Chloride 50 ml @ 100 mls/hr 1X ONCE IV Last administered on 04/10/19at 11:58; Start 04/10/19 at 11:30; Stop 04/10/19 at 11:59; Status DC Ondansetron HCl (Zofran) 4 mg PRN Q8HRS PRN IV NAUSEA/VOMITING; Start 04/10/19 at 12:00; Stop 04/11/19 at 11:59 Fentanyl Citrate (Fentanyl 2ml Vial) 50 mcg PRN Q1HR PRN IV PAIN; Start 04/10/19 at 12:00; Stop 04/11/19 at 11:59 Acetaminophen (Tylenol) 650 mg PRN Q4HRS PRN PO FEVER; Start 04/10/19 at 12:00; Stop 04/11/19 at 11:59 Active Scripts Active Hydrochlorothiazide Tablet (Hydrochlorothiazide) 50 Mg Tablet 25 Mg PO DAILY Clonidine Hcl 0.1 Mg Tablet 0.1 Mg PO BID PRN Take for systolic blood pressure (upper number) greater than 180 or for diastolic blood pressure (lower number) greater than 100. Reported Metoprolol Succinate ( Xl ) (Metoprolol Succinate) 200 Mg Tab.er.24h 1 Tab PO DAILY Amlodipine Besylate 10 Mg Tablet 10 Mg PO DAILY Omeprazole 40 Mg Capsule.dr 1 Cap PO DAILY Lisinopril 40 Mg Tablet 1 Tab PO DAILY Allergies Allergies: Coded Allergies: amlodipine (Verified Allergy, Intermediate, 11/20/18) ROS General: No: Chills, Night Sweats, Fatigue, Malaise, Appetite, Other Eyes: No Blurry vision, No Decreased vision, No Double vision, No Dry eyes, No Excessive tearing, No Eye Pain, No Itchy Eyes, No Loss of vision, No Photophobia, No Scotomata, No Uses contacts, No Uses glasses, No Other HEENT: YES: Heacaches, Sinus pain; No: Visual Changes, Hearing change, Nasal congestion, Nasal discharge, Oral lesions, Sore Throat, Epistaxis, Sneezing, Snoring, Tinnitus, Vertigo, Vocal changes, Other ALLERGY AND IMMUNOLOGY: No: Hives, Insect Bite Sensitivity, Itchy/Watery Eyes, Nasal Congestion, Post Nasal Drip, Seasonal Allergies, Other Respiratory: No: Cough, Hemoptysis, Orthopnea, Pleuritic Pain, Shortness of breath, SOB with excertion, Sputum Changes, Stridor, Tachypnea, Wheezing, Other Gastrointestinal: No Nausea, No Vomiting, No Abdominal Pain, No Diarrhea, No Constipation, No Melena, No Hematochezia, No Other Neurological: Yes Dizziness; No Behavorial Changes, No Bowel/Bladder ControlChng, No Confusion, No Gait Disturbance, No Headaches, No Impaired Coord/balance, No Memory Loss, No Numbness/Tingling, No Seizures, No Speech Problems, No Tremors, No Visual Changes, No Weakness, No Other Physical Exam General: Alert, Oriented X3, Cooperative, No acute distress HEENT: Atraumatic, PERRLA, EOMI, Mucous membr. moist/pink, Other (Ears: normal tympanic membranes; Nose: Mild inferior turbinate hypertrophy; OC/OP: edentulous, 2+ tonsils, mild cobblestoning of posterior pharyngeal wall, normal mouth opening; Neck: soft, NT/ND ) Extremities: No clubbing, No cyanosis, No edema Psych/Mental Status: Mental status NL Vitals VITALS Vital Signs Date Time Temp Pulse Resp B/P (MAP) Pulse Ox O2 Delivery O2 Flow Rate FiO2 04/10/19 12:18 52 18 96 04/10/19 09:42 98.5 125/60 (81) Room Air 98.5 Labs Labs Laboratory Tests Test 04/10/19 09:49 White Blood Count 7.7 x10^3/uL (4.0-11.0) Red Blood Count 3.23 x10^6/uL (3.50-5.40) Hemoglobin 10.4 g/dL (12.0-15.5) Hematocrit 32.2 % (36.0-47.0) Mean Corpuscular Volume 100 fL (79-100) Mean Corpuscular Hemoglobin 32 pg (25-35) Mean Corpuscular Hemoglobin Concent 32 g/dL (31-37) Red Cell Distribution Width 13.3 % (11.5-14.5) Platelet Count 132 x10^3/uL (140-400) Neutrophils (%) (Auto) 52 % (31-73) Lymphocytes (%) (Auto) 38 % (24-48) Monocytes (%) (Auto) 7 % (0-9) Eosinophils (%) (Auto) 3 % (0-3) Basophils (%) (Auto) 1 % (0-3) Neutrophils # (Auto) 4.0 x10^3/uL (1.8-7.7) Lymphocytes # (Auto) 2.9 x10^3/uL (1.0-4.8) Monocytes # (Auto) 0.5 x10^3/uL (0.0-1.1) Eosinophils # (Auto) 0.2 x10^3/uL (0.0-0.7) Basophils # (Auto) 0.0 x10^3/uL (0.0-0.2) Segmented Neutrophils % 47 % (35-66) Band Neutrophils % 1 % (0-9) Lymphocytes % 46 % (24-48) Monocytes % 3 % (0-10) Eosinophils % 3 % (0-5) Platelet Estimate Adequate (ADEQUATE) Sodium Level 140 mmol/L (136-145) Potassium Level 5.2 mmol/L (3.5-5.1) Chloride Level 107 mmol/L (98-107) Carbon Dioxide Level 19 mmol/L (21-32) Anion Gap 14 (6-14) Blood Urea Nitrogen 16 mg/dL (7-20) Creatinine 1.1 mg/dL (0.6-1.0) Estimated GFR (Cockcroft-Gault) 48.4 BUN/Creatinine Ratio 15 (6-20) Glucose Level 120 mg/dL (70-99) Calcium Level 8.6 mg/dL (8.5-10.1) Total Bilirubin 0.4 mg/dL (0.2-1.0) Aspartate Amino Transf (AST/SGOT) 33 U/L (15-37) Alanine Aminotransferase (ALT/SGPT) 29 U/L (14-59) Alkaline Phosphatase 115 U/L (46-116) Troponin I Quantitative < 0.017 ng/mL (0.000-0.055) Total Protein 7.6 g/dL (6.4-8.2) Albumin 3.5 g/dL (3.4-5.0) Albumin/Globulin Ratio 0.9 (1.0-1.7) Laboratory Tests Test 04/10/19 09:49 White Blood Count 7.7 x10^3/uL (4.0-11.0) Red Blood Count 3.23 x10^6/uL (3.50-5.40) Hemoglobin 10.4 g/dL (12.0-15.5) Hematocrit 32.2 % (36.0-47.0) Mean Corpuscular Volume 100 fL (79-100) Mean Corpuscular Hemoglobin 32 pg (25-35) Mean Corpuscular Hemoglobin Concent 32 g/dL (31-37) Red Cell Distribution Width 13.3 % (11.5-14.5) Platelet Count 132 x10^3/uL (140-400) Neutrophils (%) (Auto) 52 % (31-73) Lymphocytes (%) (Auto) 38 % (24-48) Monocytes (%) (Auto) 7 % (0-9) Eosinophils (%) (Auto) 3 % (0-3) Basophils (%) (Auto) 1 % (0-3) Neutrophils # (Auto) 4.0 x10^3/uL (1.8-7.7) Lymphocytes # (Auto) 2.9 x10^3/uL (1.0-4.8) Monocytes # (Auto) 0.5 x10^3/uL (0.0-1.1) Eosinophils # (Auto) 0.2 x10^3/uL (0.0-0.7) Basophils # (Auto) 0.0 x10^3/uL (0.0-0.2) Segmented Neutrophils % 47 % (35-66) Band Neutrophils % 1 % (0-9) Lymphocytes % 46 % (24-48) Monocytes % 3 % (0-10) Eosinophils % 3 % (0-5) Platelet Estimate Adequate (ADEQUATE) Sodium Level 140 mmol/L (136-145) Potassium Level 5.2 mmol/L (3.5-5.1) Chloride Level 107 mmol/L (98-107) Carbon Dioxide Level 19 mmol/L (21-32) Anion Gap 14 (6-14) Blood Urea Nitrogen 16 mg/dL (7-20) Creatinine 1.1 mg/dL (0.6-1.0) Estimated GFR (Cockcroft-Gault) 48.4 BUN/Creatinine Ratio 15 (6-20) Glucose Level 120 mg/dL (70-99) Calcium Level 8.6 mg/dL (8.5-10.1) Total Bilirubin 0.4 mg/dL (0.2-1.0) Aspartate Amino Transf (AST/SGOT) 33 U/L (15-37) Alanine Aminotransferase (ALT/SGPT) 29 U/L (14-59) Alkaline Phosphatase 115 U/L (46-116) Troponin I Quantitative < 0.017 ng/mL (0.000-0.055) Total Protein 7.6 g/dL (6.4-8.2) Albumin 3.5 g/dL (3.4-5.0) Albumin/Globulin Ratio 0.9 (1.0-1.7) Images Images CT Maxillofacial (04/10/19): Mucosal thickening within right maxillary sinusitis with opacification of osteomeatal unit consistent with acute sinusitis. Mild fat stranding posterior to right maxillary antrum, no bony erosion Assessment/Plan Assessment/Plan 73 year old female with acute right maxillary sinusitis and associated headaches. Patient has improved with medications. CT read reports possible invasive fungal sinusitis-- no bony erosion seen and patient has no risk factors. Therefore, this diagnosis is highly unlikely. I recommended nasal endoscopy for further evaluation, but patient and declined this intervention. - I have discussed with admitting hospitalist team, I feel that patient can be managed with oral antibiotics at home. - Recommend course of Augmentin for 14 days. Also daily use of Flonase and OTC antihistamine. - Return to ER if worsening headaches, vision changes or any other neurologic changes. PANCHO VALDEZ MD Apr 10, 2019 14:45
--- NOTE | 2019-04-10 14:53 | EKG ---
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
--- NOTE | 2019-04-10 15:03 | PDOC1 ---
History and Physical Date of Admission Date of Admission 04/10/2019 Identification/Chief Complaint Chief Complaint her face is swollen Source Source: Caregiver, Chart review History of Present Illness History of Present Illness Patient is a 73 year odl female wtih past medical history of hypertension and GERD who was in her usual stated of health until more or less 3 days prior to her admission Patient started complaining of headache whcih was frontal with a sharp pain. She also complained of worse post nasal drip with cough non productive, she did not have fever but complained of chills and feeling "cold all the time"Patient did not present neurological deficits. Patient denied ringing in the ears no visual disturbances no chest pain no palpitations no neck stiffness no recent infections have been reported. Patient apparently has a chronic sinusitis. She did have some headache and dizziness and that her body feels full. Son is helping with the history taking since the patient is [place] and does not speak Turkmen. As per design he describes the patient feeling a sensation of her body feeling quite heavy. He is on for maxed out medications for blood pressure and he is concerned about side effects of the medications. I have explained that amlodipine has a tendency to cause peripheral edema. Reassurance has been provided patient has been on her medications for quite some time now. The patient was described as per day ER practitioner as having the worst headache of her life imaging studies revealed the following: IMPRESSION: Right maxillary sinus inflammatory disease with soft tissue stranding in the right retroantral fat. Correlate clinically for any evidence of invasive fungal sinusitis. Patient did not exhibit signs of decompensation during my visit normal signs of excess pain. The patient was seen in consultation by Dr. Calhoun and unfortunately patient would not allow further workup noted to assess her sinuses. The patient does not take chronic immunosuppressive therapy. There is no history of repeated infections either. In light of healthy immune system the concerns on the read of her CAT scan as very low probability of being a fungal sinusitis. Plan of care was explained in detail to the son, signs and symptoms of alarm were discussed with the patient prior to dismissal and we will schedule a follow-up appointment at Dr. Calhoun's office in 2 weeks. . Past Medical History Cardiovascular: HTN Social History Smoke: Quit ALCOHOL: none Drugs: None Current Problem List Problem List Problems Medical Problems: (1) Headache Status: Acute (2) Sinusitis Status: Acute Current Medications Current Medications Current Medications Medications (Trade) Dose Ordered Sig/Sonia Start Time Stop Time Status Last Admin Dose Admin Acetaminophen (Tylenol) 650 mg PRN Q4HRS PRN 04/10/19 12:00 04/11/19 11:59 Diphenhydramine HCl (Benadryl) 25 mg 1X ONCE 04/10/19 09:45 04/10/19 09:46 DC 04/10/19 10:22 25 MG Fentanyl Citrate (Fentanyl 2ml Vial) 50 mcg PRN Q1HR PRN 04/10/19 12:00 04/11/19 11:59 Ketorolac Tromethamine (Toradol 30mg Vial) 30 mg 1X ONCE 04/10/19 09:45 04/10/19 09:46 DC 04/10/19 10:23 30 MG Ondansetron HCl (Zofran) 4 mg PRN Q8HRS PRN 04/10/19 12:00 04/11/19 11:59 Piperacillin Sod/ Tazobactam Sod 3.375 gm/Sodium Chloride 50 ml @ 100 mls/hr 1X ONCE 04/10/19 11:30 04/10/19 11:59 DC 04/10/19 11:58 100 MLS/HR Prochlorperazine Edisylate (Compazine) 10 mg 1X ONCE 04/10/19 09:45 04/10/19 09:46 DC 04/10/19 10:23 10 MG Allergies Allergies Allergies Coded Allergies Type Severity Reaction Last Updated Verified amlodipine Allergy Intermediate 11/20/18 Yes ROS Review of System CONSTITUTIONAL: No fever or chills EYES: No recent changes SKIN: No rash or itching CARDIOVASCULAR: No chest pain, syncope, palpitations, or edema RESPIRATORY: No SOB or cough GASTROINTESTINAL: No nausea, vomiting or abdominal pain NEUROLOGICAL: No headaches or weakness ENDOCRINE: No cold or heat intolerance GENITOURINARY: No urgency or frequency of urination MUSCULOSKELETAL: No back pain or joint pain LYMPHATICS: No enlarged lymph nodes PSYCHIATRIC: No anxiety or depression Physical Exam Physical Exam Gen.: well-developed well-nourished in no apparent distress Head: Normal shape atraumatic Eyes: Pupils equal reactive to light and accommodation, normal conjunctivae and lids Ears: Normal shape Nose: Normal shape no trauma Mouth: No exudates of the back of throat no thrush no lesions Neck: Supple no JVD no carotid bruit or lymphadenopathy no thyromegaly Chest: Lungs clear to auscultation with good inspiratory effort no crackles rales or rhonchi Cardiovascular: S1-S2 regular rhythm no murmurs gallops or rubs Abdomen: Bowel sounds present soft nontender no hepatosplenomegaly appreciated sign Extremities: No clubbing no cyanosis no edema peripheral pulses palpated bilaterally Neurological: Alert awake oriented in person time place and situation, cranial nerves II through XII intact, no motor or sensory deficits appreciated Psych: Appropriate mood, cooperative Vitals Vitals Vital Signs Date Time Temp Pulse Resp B/P (MAP) Pulse Ox O2 Delivery O2 Flow Rate FiO2 04/10/19 12:18 52 18 96 04/10/19 09:42 98.5 125/60 (81) Room Air 98.5 Labs Labs Laboratory Tests Test 04/10/19 09:49 White Blood Count 7.7 x10^3/uL (4.0-11.0) Red Blood Count 3.23 x10^6/uL (3.50-5.40) Hemoglobin 10.4 g/dL (12.0-15.5) Hematocrit 32.2 % (36.0-47.0) Mean Corpuscular Volume 100 fL (79-100) Mean Corpuscular Hemoglobin 32 pg (25-35) Mean Corpuscular Hemoglobin Concent 32 g/dL (31-37) Red Cell Distribution Width 13.3 % (11.5-14.5) Platelet Count 132 x10^3/uL (140-400) Neutrophils (%) (Auto) 52 % (31-73) Lymphocytes (%) (Auto) 38 % (24-48) Monocytes (%) (Auto) 7 % (0-9) Eosinophils (%) (Auto) 3 % (0-3) Basophils (%) (Auto) 1 % (0-3) Neutrophils # (Auto) 4.0 x10^3/uL (1.8-7.7) Lymphocytes # (Auto) 2.9 x10^3/uL (1.0-4.8) Monocytes # (Auto) 0.5 x10^3/uL (0.0-1.1) Eosinophils # (Auto) 0.2 x10^3/uL (0.0-0.7) Basophils # (Auto) 0.0 x10^3/uL (0.0-0.2) Segmented Neutrophils % 47 % (35-66) Band Neutrophils % 1 % (0-9) Lymphocytes % 46 % (24-48) Monocytes % 3 % (0-10) Eosinophils % 3 % (0-5) Platelet Estimate Adequate (ADEQUATE) Sodium Level 140 mmol/L (136-145) Potassium Level 5.2 mmol/L (3.5-5.1) Chloride Level 107 mmol/L (98-107) Carbon Dioxide Level 19 mmol/L (21-32) Anion Gap 14 (6-14) Blood Urea Nitrogen 16 mg/dL (7-20) Creatinine 1.1 mg/dL (0.6-1.0) Estimated GFR (Cockcroft-Gault) 48.4 BUN/Creatinine Ratio 15 (6-20) Glucose Level 120 mg/dL (70-99) Calcium Level 8.6 mg/dL (8.5-10.1) Total Bilirubin 0.4 mg/dL (0.2-1.0) Aspartate Amino Transf (AST/SGOT) 33 U/L (15-37) Alanine Aminotransferase (ALT/SGPT) 29 U/L (14-59) Alkaline Phosphatase 115 U/L (46-116) Troponin I Quantitative < 0.017 ng/mL (0.000-0.055) Total Protein 7.6 g/dL (6.4-8.2) Albumin 3.5 g/dL (3.4-5.0) Albumin/Globulin Ratio 0.9 (1.0-1.7) Laboratory Tests Test 04/10/19 09:49 White Blood Count 7.7 x10^3/uL (4.0-11.0) Red Blood Count 3.23 x10^6/uL (3.50-5.40) Hemoglobin 10.4 g/dL (12.0-15.5) Hematocrit 32.2 % (36.0-47.0) Mean Corpuscular Volume 100 fL (79-100) Mean Corpuscular Hemoglobin 32 pg (25-35) Mean Corpuscular Hemoglobin Concent 32 g/dL (31-37) Red Cell Distribution Width 13.3 % (11.5-14.5) Platelet Count 132 x10^3/uL (140-400) Neutrophils (%) (Auto) 52 % (31-73) Lymphocytes (%) (Auto) 38 % (24-48) Monocytes (%) (Auto) 7 % (0-9) Eosinophils (%) (Auto) 3 % (0-3) Basophils (%) (Auto) 1 % (0-3) Neutrophils # (Auto) 4.0 x10^3/uL (1.8-7.7) Lymphocytes # (Auto) 2.9 x10^3/uL (1.0-4.8) Monocytes # (Auto) 0.5 x10^3/uL (0.0-1.1) Eosinophils # (Auto) 0.2 x10^3/uL (0.0-0.7) Basophils # (Auto) 0.0 x10^3/uL (0.0-0.2) Segmented Neutrophils % 47 % (35-66) Band Neutrophils % 1 % (0-9) Lymphocytes % 46 % (24-48) Monocytes % 3 % (0-10) Eosinophils % 3 % (0-5) Platelet Estimate Adequate (ADEQUATE) Sodium Level 140 mmol/L (136-145) Potassium Level 5.2 mmol/L (3.5-5.1) Chloride Level 107 mmol/L (98-107) Carbon Dioxide Level 19 mmol/L (21-32) Anion Gap 14 (6-14) Blood Urea Nitrogen 16 mg/dL (7-20) Creatinine 1.1 mg/dL (0.6-1.0) Estimated GFR (Cockcroft-Gault) 48.4 BUN/Creatinine Ratio 15 (6-20) Glucose Level 120 mg/dL (70-99) Calcium Level 8.6 mg/dL (8.5-10.1) Total Bilirubin 0.4 mg/dL (0.2-1.0) Aspartate Amino Transf (AST/SGOT) 33 U/L (15-37) Alanine Aminotransferase (ALT/SGPT) 29 U/L (14-59) Alkaline Phosphatase 115 U/L (46-116) Troponin I Quantitative < 0.017 ng/mL (0.000-0.055) Total Protein 7.6 g/dL (6.4-8.2) Albumin 3.5 g/dL (3.4-5.0) Albumin/Globulin Ratio 0.9 (1.0-1.7) VTE Prophylaxis Ordered VTE Prophylaxis Devices: Yes VTE Pharmacological Prophylaxi: No Assessment/Plan Assessment/Plan Acute sinusitis Essential hypertension GERD Peripheral edema most likely a consequence off amlodipine. Plan: Patient will be dismissed home 2 weeks of Augmentin Flonase and Zyrtec We'll add Lasix to her regimen to treat the peripheral edema Encouraged to follow-up with her primary care physician in one week CLARKE PEREZ MD Apr 10, 2019 15:03
--- NOTE | 2019-04-10 15:06 | PDOC3 ---
Discharge Summary Visit Information Date of Admission: Apr 10, 2019 Date of Discharge: Apr 10, 2019 Admitting Diagnosis Comment: Acute sinusitis Final Diagnosis Problems Medical Problems: Headache secondary to acute sinusitis Sinusitis Essential hypertension GERD Peripheral edema Status: Acute Brief Hospital Course Allergies Allergies Coded Allergies Type Severity Reaction Last Updated Verified amlodipine Allergy Intermediate 11/20/18 Yes Vital Signs Vital Signs Date Time Temp Pulse Resp B/P (MAP) Pulse Ox O2 Delivery O2 Flow Rate FiO2 04/10/19 12:18 52 18 96 04/10/19 09:42 98.5 125/60 (81) Room Air 98.5 Lab Results Laboratory Tests Test 04/10/19 09:49 White Blood Count 7.7 x10^3/uL (4.0-11.0) Red Blood Count 3.23 x10^6/uL (3.50-5.40) Hemoglobin 10.4 g/dL (12.0-15.5) Hematocrit 32.2 % (36.0-47.0) Mean Corpuscular Volume 100 fL (79-100) Mean Corpuscular Hemoglobin 32 pg (25-35) Mean Corpuscular Hemoglobin Concent 32 g/dL (31-37) Red Cell Distribution Width 13.3 % (11.5-14.5) Platelet Count 132 x10^3/uL (140-400) Neutrophils (%) (Auto) 52 % (31-73) Lymphocytes (%) (Auto) 38 % (24-48) Monocytes (%) (Auto) 7 % (0-9) Eosinophils (%) (Auto) 3 % (0-3) Basophils (%) (Auto) 1 % (0-3) Neutrophils # (Auto) 4.0 x10^3/uL (1.8-7.7) Lymphocytes # (Auto) 2.9 x10^3/uL (1.0-4.8) Monocytes # (Auto) 0.5 x10^3/uL (0.0-1.1) Eosinophils # (Auto) 0.2 x10^3/uL (0.0-0.7) Basophils # (Auto) 0.0 x10^3/uL (0.0-0.2) Segmented Neutrophils % 47 % (35-66) Band Neutrophils % 1 % (0-9) Lymphocytes % 46 % (24-48) Monocytes % 3 % (0-10) Eosinophils % 3 % (0-5) Platelet Estimate Adequate (ADEQUATE) Sodium Level 140 mmol/L (136-145) Potassium Level 5.2 mmol/L (3.5-5.1) Chloride Level 107 mmol/L (98-107) Carbon Dioxide Level 19 mmol/L (21-32) Anion Gap 14 (6-14) Blood Urea Nitrogen 16 mg/dL (7-20) Creatinine 1.1 mg/dL (0.6-1.0) Estimated GFR (Cockcroft-Gault) 48.4 BUN/Creatinine Ratio 15 (6-20) Glucose Level 120 mg/dL (70-99) Calcium Level 8.6 mg/dL (8.5-10.1) Total Bilirubin 0.4 mg/dL (0.2-1.0) Aspartate Amino Transf (AST/SGOT) 33 U/L (15-37) Alanine Aminotransferase (ALT/SGPT) 29 U/L (14-59) Alkaline Phosphatase 115 U/L (46-116) Troponin I Quantitative < 0.017 ng/mL (0.000-0.055) Total Protein 7.6 g/dL (6.4-8.2) Albumin 3.5 g/dL (3.4-5.0) Albumin/Globulin Ratio 0.9 (1.0-1.7) Laboratory Tests Test 04/10/19 09:49 White Blood Count 7.7 x10^3/uL (4.0-11.0) Red Blood Count 3.23 x10^6/uL (3.50-5.40) Hemoglobin 10.4 g/dL (12.0-15.5) Hematocrit 32.2 % (36.0-47.0) Mean Corpuscular Volume 100 fL (79-100) Mean Corpuscular Hemoglobin 32 pg (25-35) Mean Corpuscular Hemoglobin Concent 32 g/dL (31-37) Red Cell Distribution Width 13.3 % (11.5-14.5) Platelet Count 132 x10^3/uL (140-400) Neutrophils (%) (Auto) 52 % (31-73) Lymphocytes (%) (Auto) 38 % (24-48) Monocytes (%) (Auto) 7 % (0-9) Eosinophils (%) (Auto) 3 % (0-3) Basophils (%) (Auto) 1 % (0-3) Neutrophils # (Auto) 4.0 x10^3/uL (1.8-7.7) Lymphocytes # (Auto) 2.9 x10^3/uL (1.0-4.8) Monocytes # (Auto) 0.5 x10^3/uL (0.0-1.1) Eosinophils # (Auto) 0.2 x10^3/uL (0.0-0.7) Basophils # (Auto) 0.0 x10^3/uL (0.0-0.2) Segmented Neutrophils % 47 % (35-66) Band Neutrophils % 1 % (0-9) Lymphocytes % 46 % (24-48) Monocytes % 3 % (0-10) Eosinophils % 3 % (0-5) Platelet Estimate Adequate (ADEQUATE) Sodium Level 140 mmol/L (136-145) Potassium Level 5.2 mmol/L (3.5-5.1) Chloride Level 107 mmol/L (98-107) Carbon Dioxide Level 19 mmol/L (21-32) Anion Gap 14 (6-14) Blood Urea Nitrogen 16 mg/dL (7-20) Creatinine 1.1 mg/dL (0.6-1.0) Estimated GFR (Cockcroft-Gault) 48.4 BUN/Creatinine Ratio 15 (6-20) Glucose Level 120 mg/dL (70-99) Calcium Level 8.6 mg/dL (8.5-10.1) Total Bilirubin 0.4 mg/dL (0.2-1.0) Aspartate Amino Transf (AST/SGOT) 33 U/L (15-37) Alanine Aminotransferase (ALT/SGPT) 29 U/L (14-59) Alkaline Phosphatase 115 U/L (46-116) Troponin I Quantitative < 0.017 ng/mL (0.000-0.055) Total Protein 7.6 g/dL (6.4-8.2) Albumin 3.5 g/dL (3.4-5.0) Albumin/Globulin Ratio 0.9 (1.0-1.7) Brief Hospital Course Ms. Champion is a 73 old female who was admitted with acute sinusitis and the report from the ER that she may be having a fungal infection her sinus. Patient also had the report from the [employer] SUPPORT SPECIALIST in the yard that she had the worst headache of her life which after evaluation the patient did not seem to be in any acute distress. The patient's Was Helping with Translation and History Taking. The Patient Did Not Percent Neck Stiffness No Neurological Deficits and the Likelihood of This Being a on the Use Picture Is Quite Low. In Light of Her Benign Workup Given That the Patient Declined Further Diagnostic Testing Including LP and ENT Evaluation with Sinus Drainage She Was Deemed Appropriate for Dismissal with a 14 Day Course of Antibiotics Zyrtec and Flonase. This Recommendations Were Discussed with the Son over the Phone Prior to Dismissal Encouraged to Follow-Up with Her Primary Care Physician within One Week. Signs and Symptoms of Alarm Discussed Prior to Dismissal All Concerns Were Addressed to the Best of My Abilities Assessment Assessment Physical exam please see H&P earlier in the day Discharge Information Condition at Discharge: Improved Follow Up: Weeks Disposition/Orders: D/C to Home Scheduled Amlodipine Besylate (Amlodipine Besylate) 10 Mg Tablet, 10 MG PO DAILY for HTN , (Reported) Entered as Reported by: SHI MANUEL on 04/10/191409 Last Taken: UNKNOWN on Unknown Date & Time Last Action: New Order on 04/10/191409 by SHI MANUEL Hydrochlorothiazide (Hydrochlorothiazide Tablet) 50 Mg Tablet, 25 MG PO DAILY for DIURETIC, #30 Ref 0 Prescribed by: JUNIOR TSANG APRN on 12/27/181702 Last Action: Reviewed on 04/10/191409 by SHI MANUEL Lisinopril (Lisinopril) 40 Mg Tablet, 1 TAB PO DAILY for HTN , #30 Ref 5 (Reported) Entered as Reported by: SHI MANUEL on 04/10/191409 Last Taken: UNKNOWN on Unknown Date & Time Last Action: New Order on 04/10/191409 by SHI MANUEL Metoprolol Succinate (Metoprolol Succinate ( Xl )) 200 Mg Tab.er.24h, 1 TAB PO DAILY for HTN , #30 Ref 5 (Reported) Entered as Reported by: SHI MANUEL on 04/10/191409 Last Taken: UNKNOWN on Unknown Date & Time Last Action: New Order on 04/10/191409 by SHI MANUEL Omeprazole (Omeprazole) 40 Mg Capsule.dr, 1 CAP PO DAILY for GERD, #30 Ref 3 (Reported) Entered as Reported by: SHI MANUEL on 04/10/191409 Last Taken: UNKNOWN on Unknown Date & Time Last Action: New Order on 04/10/191409 by SHI MANUEL Scheduled PRN Clonidine Hcl (Clonidine Hcl) 0.1 Mg Tablet, 0.1 MG PO BID PRN for ELEVATED BP, SEE COMMENTS, #14 Take for systolic blood pressure (upper number) greater than 180 or for diastolic blood pressure (lower number) greater than 100. Prescribed by: SHAWNA VILLEGAS D.O. on 11/20/182200 CLARKE PEREZ MD Apr 10, 2019 15:06
[2019-04-10] MEDS ORDERED: AMOX1TAB61 PO (15:08)
[2019-04-10] MEDS ORDERED: FLUT9.9S NS (15:08)
[2019-04-10] MEDS ORDERED: CETI10TA24 PO (15:08)
--- NOTE | 2019-04-10 16:04 | NUR ---
Discharge Note: PT DISCHARGED HOME WITH SELF CARE. PT LEFT FACILITY VIA PRIVATE VEHICLE WITH DAUGHTER AND AT 1557. PT STABLE AND ALERT UPON DISCHARGE. PT PIV REMOVED FROM L WRIST WITHOUT COMPLICATIONS, BANDAGE APPLIED. PT DAUGHTER EDUCATED ABOUT DISCHARGE MEDICATIONS, DISCHARGE INSTRUCTIONS, AND FOLLOW-UP CARE. PT NEW PRISCRIPTIONS CALLED INTO [facility], NO CONCERNS VOICED AT THIS TIME. PT LEFT WITH ALL PERSONAL BELONGINGS. PADMINI RODRIGUEZ Discharge instructions and discharge home medications reviewed with Patient and a copy given. All questions have been answered and understanding verbalized.
== END 2019-04-10 15:57 | disposition home or self-care (01) | DRG 153 ==
LOC: ER 09:23 → 5 SOUTH 11:17
PROVIDERS: ADMIT Internal Medicine; ATTEND Internal Medicine
DX: J01.00 Acute maxillary sinusitis, unspecified (principal); I10 Essential (primary) hypertension; J45.909 Unspecified asthma, uncomplicated; K21.9 Gastro-esophageal reflux disease without esophagitis; Z87.891 Personal history of nicotine dependence; Z88.8 Allergy status to other drugs, medicaments and biological substances; Z79.899 Other long term (current) drug therapy; R60.0 Localized edema
CPT/HCPCS: 36415; 70450; 70486; 71046; 80053; 84484; 85007; 85025; 93005; J0780; J1885; J2543; Q0163; G0378

== ENCOUNTER 2019-09-04 11:43 | Emergency (ER) | payer OTHER ==
[~2019-09-04] VITALS: Ht 121.9 cm; Wt 47.7 kg
[~2019-09-04 11:43] MED LIST changes: +AMLO10TA8 PO; +AMOX1TAB61 PO; +CETI10TA74 PO; +FLUT9.9S NS; +LISI-130 PO; +METO200T46 PO; +OMEP40CA45 PO
[2019-09-04 12:13] LABS: BILIRUBIN,URINE NEGATIVE (NEG); CLARITY,URINE CLEAR; COLOR,URINE YELLOW; NITRITE,URINE NEGATIVE (NEG); PROTEIN,URINE >=300 mg/dL (NEG-TRACE); UROBILINOGEN,URINE 0.2 mg/dL (0.2 mg/dL)
[2019-09-04 12:26] LABS: BACTERIA,URINE FEW /HPF (0-FEW); RBC,URINE OCC /HPF (0-2); SQUAMOUS EPITHELIAL CELL,UR FEW /LPF; WBC,URINE RARE /HPF (0-4)
[2019-09-04 12:32] LABS: CREATININE 1.4 mg/dL (0.6-1.0); GFR 36.6; POTASSIUM 4.6 mmol/L (3.5-5.1)
[2019-09-04 12:33] LABS: BASO # 0.1 x10^3/uL (0.0-0.2); BASO % 1 % (0-3); EOS # 0.5 x10^3/uL (0.0-0.7); EOS % 5 % (0-3); HEMATOCRIT 33.3 % (36.0-47.0); HEMOGLOBIN 11.9 g/dL (12.0-15.5); LYMPH # 4.3 x10^3/uL (1.0-4.8); LYMPH % 42 % (24-48); MEAN CORPUSCULAR HEMOGLOBIN 34 pg (25-35); MEAN CORPUSCULAR HGB CONC 36 g/dL (31-37); MEAN CORPUSCULAR VOLUME 96 fL (79-100); MONO # 0.5 x10^3/uL (0.0-1.1); MONO % 5 % (0-9); NEUT # 4.8 x10^3/uL (1.8-7.7); NEUT % 47 % (31-73); PLATELET COUNT 183 x10^3/uL (140-400); RED BLOOD COUNT 3.48 x10^6/uL (3.50-5.40); RED CELL DISTRIBUTION WIDTH 12.8 % (11.5-14.5); WHITE BLOOD COUNT 10.2 x10^3/uL (4.0-11.0)
--- NOTE | 2019-09-04 12:43 | RAD ---
CHEST AP ONLY Clinical Indication: Reason: dizzy, soa Comparison: Two-view chest 04/10/2019. Findings: Borderline ectatic aortic arch. The cardiomediastinal silhouette is normal. Lungs are clear. There is no pneumothorax. No pleural effusion is appreciated. No acute bone abnormality. IMPRESSION: No acute cardiopulmonary process. Electronically signed by: Dexter Monzon MD (09/04/2019 12:40 PM) [id number]
[2019-09-04] MEDS ORDERED: cloNIDine HCL 0.1 MG TABLET PO ONE (13:00)
[2019-09-04] MEDS ORDERED: CLON0.1T PO (13:52)
--- NOTE | 2019-09-04 13:52 | PHYS DOC ---
Past Medical History Past Medical History: Asthma, GERD, High Cholesterol, Hypertension Past Surgical History: No Surgical History Smoking Status: Former Smoker Alcohol Use: None Drug Use: None General Adult EDM: Chief Complaint: DIZZY/LIGHT HEADED HPI: HPI: Patient is a 74 year old female with a history of hypertension who presents with high blood pressure and intermittent dizziness. Patient has been having dizziness when her blood pressure is high for quite some time. She has been told by her primary care doctor that she should check her blood pressure every day and if it got high then she should come to the emergency room. It was very high today and has been high for the last couple of days. She intermittently has headaches. She has not had any sudden onset severe headaches. She does not currently have a headache. She has no nausea, vomiting, weakness, numbness. Review of Systems: Review of Systems: General: Denies fever, chills, sweats, fatigue Eyes: Denies drainage, blurred vision HENT: Denies rhinorrhea, sore throat Respiratory: Denies cough, shortness of breath, wheezing Cardiac: Denies edema, palpitations, chest pain GI: Denies abdominal pain, N/V MSK: Denies back pain, neck pain Skin: Denies rash, jaundice Neuro: Denies headache, dizziness reports lightheadedness Psychiatric: Denies SI/HI Heart Score: Risk Factors: Risk Factors: DM, Current or recent (<one month) smoker, HTN, HLP, family h istory of CAD, obesity. Risk Scores: Score 0 - 3: 2.5% MACE over next 6 weeks - Discharge Home Score 4 - 6: 20.3% MACE over next 6 weeks - Admit for Clinical Observation Score 7 - 10: 72.7% MACE over next 6 weeks - Early Invasive Strategies Current Medications: Current Medications Medications (Trade) Dose Ordered Sig/Sonia Start Time Stop Time Status Last Admin Dose Admin Clonidine HCl (Catapres) 0.1 mg 1X ONCE 09/04/19 13:00 09/04/19 13:01 DC 09/04/19 13:06 0.1 MG Allergies: Allergies: Allergies Coded Allergies Type Severity Reaction Last Updated Verified amlodipine Allergy Intermediate 11/20/18 Yes Physical Exam: PE: Constitutional: Well developed, well nourished, Cooperative, NAD, non-toxic appearing HEENT: Normocephalic, atraumatic, oropharynx moist, EOMI, PERRL, no drainage from eyes, normal conjunctiva Neck: Supple, normal range of motion, no stridor Cardiovascular: RRR, 2+ radial pulses bilaterally, no edema Respiratory: CTA bilaterally, no respiratory distress, no wheezing/crackles Abdomen: Soft, nontender, nondistended, no masses Skin: Warm, dry, intact Extremities: No obvious deformities Neurologic: Alert and Oriented x3, motor and sensory function grossly normal, no focal deficits Psychologic: Normal affect, normal judgment, normal mood. No SI/HI Current Patient Data: Labs: Laboratory Tests Test 09/04/19 12:03 09/04/19 12:12 Urine Collection Type Unknown Urine Color Yellow Urine Clarity Clear Urine pH 6.0 (<5.0-8.0) Urine Specific [place] 1.015 (1.000-1.030) Urine Protein >=300 mg/dL (NEG-TRACE) Urine Glucose (UA) Negative mg/dL (NEG) Urine Ketones (Stick) Negative mg/dL (NEG) Urine Blood Trace (NEG) Urine Nitrite Negative (NEG) Urine Bilirubin Negative (NEG) Urine Urobilinogen Dipstick 0.2 mg/dL (0.2 mg/dL) Urine Leukocyte Esterase Negative (NEG) Urine RBC Occ /HPF (0-2) Urine WBC Rare /HPF (0-4) Urine Squamous Epithelial Cells Few /LPF Urine Bacteria Few /HPF (0-FEW) Urine Mucus Mod /LPF White Blood Count 10.2 x10^3/uL (4.0-11.0) Red Blood Count 3.48 x10^6/uL (3.50-5.40) L Hemoglobin 11.9 g/dL (12.0-15.5) L Hematocrit 33.3 % (36.0-47.0) L Mean Corpuscular Volume 96 fL (79-100) Mean Corpuscular Hemoglobin 34 pg (25-35) Mean Corpuscular Hemoglobin Concent 36 g/dL (31-37) Red Cell Distribution Width 12.8 % (11.5-14.5) Platelet Count 183 x10^3/uL (140-400) Neutrophils (%) (Auto) 47 % (31-73) Lymphocytes (%) (Auto) 42 % (24-48) Monocytes (%) (Auto) 5 % (0-9) Eosinophils (%) (Auto) 5 % (0-3) H Basophils (%) (Auto) 1 % (0-3) Neutrophils # (Auto) 4.8 x10^3/uL (1.8-7.7) Lymphocytes # (Auto) 4.3 x10^3/uL (1.0-4.8) Monocytes # (Auto) 0.5 x10^3/uL (0.0-1.1) Eosinophils # (Auto) 0.5 x10^3/uL (0.0-0.7) Basophils # (Auto) 0.1 x10^3/uL (0.0-0.2) Sodium Level 139 mmol/L (136-145) Potassium Level 4.6 mmol/L (3.5-5.1) Chloride Level 104 mmol/L (98-107) Carbon Dioxide Level 25 mmol/L (21-32) Anion Gap 10 (6-14) Blood Urea Nitrogen 14 mg/dL (7-20) Creatinine 1.4 mg/dL (0.6-1.0) H Estimated GFR (Cockcroft-Gault) 36.6 Glucose Level 129 mg/dL (70-99) H Calcium Level 8.0 mg/dL (8.5-10.1) L Troponin I Quantitative < 0.017 ng/mL (0.000-0.055) Laboratory Tests 09/04/19 12:12 Laboratory Tests 09/04/19 12:12 Vital Signs: Vital Signs Date Time Temp Pulse Resp B/P (MAP) Pulse Ox O2 Delivery O2 Flow Rate FiO2 09/04/19 13:10 62 17 100 09/04/19 13:06 179/107 09/04/19 12:00 98.8 Room Air 98.8 EKG: EKG: [] Radiology/Procedures: Radiology/Procedures: [] Course & Med Decision Making: Course & Med Decision Making Pertinent Labs and Imaging studies reviewed. (See chart for details) Patient is a 74 female who presents to the emergency room with intermittent lightheadedness and high blood pressure. She states is been high several times this week. She has been taking all of her medications as prescribed. She is on multiple medications. I offered her admission, however her and her son declined. They would like to take her home and just have medication adjustments done. She was given clonidine here in the emergency room with resolution of her hypertension. We will write her prescription for clonidine as needed at home. I have recommended that they follow-up early next week with her primary care doctor. We discussed the signs and symptoms of endorgan damage of high blood pressure and when to return to the emergency room. Patient's test results and vitals while in the ED were fully reviewed and discussed with the patient. Patient is stable and at this time does not need admission to the hospital. We have discussed strict return precautions and the importance of following up with their Primary Care Physician. Patient stated understanding and was given an opportunity to ask any questions. Dragon Disclaimer: Dragon Disclaimer: This electronic medical record was generated, in whole or in part, using a voice recognition dictation system. Departure Departure Impression: Primary Impression: Hypertension Additional Impression: Dizziness Disposition: 01 HOME, SELF-CARE Condition: GOOD Referrals: NO PCP (PCP) Patient Instructions: Hypertension Scripts Clonidine Hcl (CLONIDINE HCL) 0.1 Mg Tablet 1 TAB PO DAILY PRN for ELEVATED BP, SEE COMMENTS for 10 Days, #10 TAB 0 Refills Take 1 by mouth if the blood pressure is more than 180/100 Do not take medication more than 2 or 3 times per week Prov: SUPRIYA MILLARD MD 09/04/19 Justicifation of Admission Dx: Justifications for Admission: Justification of Admission Dx: No SUPRIYA MILLARD MD Sep 04, 2019 13:52
[2019-09-04 14:02] VITALS: BP 160/74
--- NOTE | 2019-09-06 09:09 | EKG ---
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
== END 2019-09-04 14:10 | disposition home or self-care (01) ==
LOC: ER 11:43
DX: I10 Essential (primary) hypertension (principal); R42 Dizziness and giddiness; R51 Headache; K21.9 Gastro-esophageal reflux disease without esophagitis; E78.00 Pure hypercholesterolemia, unspecified; J45.909 Unspecified asthma, uncomplicated; Z87.891 Personal history of nicotine dependence; Z88.8 Allergy status to other drugs, medicaments and biological substances
CPT/HCPCS: 36415; 71045; 80048; 81001; 84484; 85025; 93005; 99285-25

== ENCOUNTER 2020-07-31 09:55 | Emergency (ER) | payer OTHER ==
[~2020-07-31] VITALS: Ht 149.9 cm; Wt 59.0 kg
[~2020-07-31 09:55] MED LIST changes: +AMLO-187 PO; -AMLO10TA8 PO; +ASPI-886 PO; +HYDR-2145 PO; -HYDR50TA6 PO; +HYDR50TA9 PO; +LOSA100T14 PO; +METO-247 PO; +MIRT7.5T8 PO
--- NOTE | 2020-07-31 10:46 | ED.ADGEN ---
Past Medical History Past Medical History: Asthma, GERD, High Cholesterol, Hypertension Past Surgical History: No Surgical History Smoking Status: Never Smoker Alcohol Use: Occasionally Drug Use: None General Adult EDM: Chief Complaint: CONSTIPATION HPI: HPI: Patient is a 75 year old female, accompanied by family member that presents emergency department with complaints of being constipated. Patient reports pressure in her rectum and states that when she tried to have a bowel movement yesterday at 4 PM only small amount of tube came out. Patient also complains of lower left quadrant abdominal pain. She denies any fever, cough, shortness of breath, chest pain, palpitations, nausea, vomiting, dysuria, hematuria, back pain, or body aches. She currently rates her pain a 6 out of 10 on pain scale, she denies any alleviating factors, the pain is worse with bearing down and palpation of her abdomen. Patient reports trying stool softeners and magnesium citrate without results prior to arrival. Family states there has been some bright red blood with the bowel movements, patient denies any current rectal bleeding. Review of Systems: Review of Systems: Complete ROS is negative unless otherwise noted in HPI. Current Medications: Current Medications Medications (Trade) Dose Ordered Sig/Sonia Start Time Stop Time Status Last Admin Dose Admin Fentanyl Citrate (Fentanyl 2ml Vial) 50 mcg 1X ONCE 07/31/20 12:45 07/31/20 12:46 DC 07/31/20 13:07 50 MCG Info (CONTRAST GIVEN -- Rx MONITORING) 1 each PRN DAILY PRN 07/31/20 11:30 08/02/20 11:29 Iohexol (Omnipaque 300 Mg/ml) 75 ml 1X ONCE 07/31/20 11:30 07/31/20 11:31 DC 07/31/20 11:30 60 ML Ondansetron HCl (Zofran) 4 mg 1X ONCE 07/31/20 10:45 07/31/20 10:46 DC 07/31/20 11:09 4 MG Sodium Chloride 1,000 ml @ 1,000 mls/hr 1X ONCE 07/31/20 10:45 07/31/20 11:44 DC 07/31/20 11:09 1,000 MLS/HR Allergies: Allergies: Allergies Coded Allergies Type Severity Reaction Last Updated Verified amlodipine Allergy Intermediate 07/11/20 Yes Physical Exam: PE: Constitutional: Well developed, well nourished, no acute distress, non-toxic appearance. [] HENT: Normocephalic, atraumatic, bilateral external ears normal, nose normal. [] Eyes: PERRLA, EOMI, conjunctiva normal, no discharge. [] Neck: Normal range of motion, no stridor. 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 [] Extremities: No cyanosis, ROM intact, no edema. [] Neurologic: Alert and oriented X 3, no focal deficits noted. [] Psychologic: Affect normal, judgement normal, mood normal. [] Current Patient Data: Labs: Laboratory Tests Test 07/31/20 12:25 White Blood Count 12.7 x10^3/uL (4.0-11.0) H Red Blood Count 3.63 x10^6/uL (3.50-5.40) Hemoglobin 11.4 g/dL (12.0-15.5) L Hematocrit 34.8 % (36.0-47.0) L Mean Corpuscular Volume 96 fL (79-100) Mean Corpuscular Hemoglobin 31 pg (25-35) Mean Corpuscular Hemoglobin Concent 33 g/dL (31-37) Red Cell Distribution Width 13.2 % (11.5-14.5) Platelet Count 177 x10^3/uL (140-400) Neutrophils (%) (Auto) 74 % (31-73) H Lymphocytes (%) (Auto) 18 % (24-48) L Monocytes (%) (Auto) 6 % (0-9) Eosinophils (%) (Auto) 3 % (0-3) Basophils (%) (Auto) 0 % (0-3) Neutrophils # (Auto) 9.3 x10^3/uL (1.8-7.7) H Lymphocytes # (Auto) 2.2 x10^3/uL (1.0-4.8) Monocytes # (Auto) 0.8 x10^3/uL (0.0-1.1) Eosinophils # (Auto) 0.3 x10^3/uL (0.0-0.7) Basophils # (Auto) 0.0 x10^3/uL (0.0-0.2) Sodium Level 140 mmol/L (136-145) Potassium Level 5.1 mmol/L (3.5-5.1) Chloride Level 107 mmol/L (98-107) Carbon Dioxide Level 20 mmol/L (21-32) L Anion Gap 13 (6-14) Blood Urea Nitrogen 19 mg/dL (7-20) Creatinine 1.2 mg/dL (0.6-1.0) H Estimated GFR (Cockcroft-Gault) 43.6 BUN/Creatinine Ratio 16 (6-20) Glucose Level 120 mg/dL (70-99) H Calcium Level 8.7 mg/dL (8.5-10.1) Magnesium Level 1.6 mg/dL (1.8-2.4) L Total Bilirubin 0.2 mg/dL (0.2-1.0) Aspartate Amino Transferase (AST) 72 U/L (15-37) H Alanine Aminotransferase (ALT) 43 U/L (14-59) Alkaline Phosphatase 146 U/L (46-116) H Total Protein 8.3 g/dL (6.4-8.2) H Albumin 3.7 g/dL (3.4-5.0) Albumin/Globulin Ratio 0.8 (1.0-1.7) L Laboratory Tests 07/31/20 12:25 Laboratory Tests 07/31/20 12:25 Vital Signs: Vital Signs Date Time Temp Pulse Resp B/P (MAP) Pulse Ox O2 Delivery O2 Flow Rate FiO2 07/31/20 13:07 16 99 Room Air 07/31/20 12:42 83 174/97 (122) 07/31/20 10:05 98.7 98.7 EKG: EKG: [] Heart Score: C/O Chest Pain: No Risk Scores: Score 0 - 3: 2.5% MACE over next 6 weeks - Discharge Home Score 4 - 6: 20.3% MACE over next 6 weeks - Admit for Clinical Observation Score 7 - 10: 72.7% MACE over next 6 weeks - Early Invasive Strategies Radiology/Procedures: Radiology/Procedures: PROCEDURE: CT ABD PELV W/ IV CONTRST ONLY Study: CT abdomen/pelvis with intravenous contrast Indication: Left lower quadrant abdominal pain. Comparison: None. Technique: Helical CT imaging performed of the abdomen and pelvis after the intravenous administration of 60 cc Omnipaque 300 contrast. Sagittal and coronal reformats were obtained. One or more of the following individualized dose reduction techniques were utilized for this examination: 1. Automated exposure control 2. Adjustment of the mA and/or kV according to patient size 3. Use of iterative reconstruction technique. Findings: Chest: Motion degraded assessment of the lower lungs. Mild atelectasis. No dense consolidation, basilar effusion or suspicious pulmonary nodule. Liver: Hepatic steatosis. Gallbladder/Biliary Tree: No CT manifestations of acute cholecystitis. Within normal limits biliary tree for patient age. Pancreas: No mass or ductal dilatation. Spleen: Within normal limits for size. Adrenal Glands: No adrenal gland mass. Kidneys/Ureters/Bladder: Cyst exophytic off the left kidney upper pole measuring up to 1.8 cm. Symmetric renal parenchymal enhancement. No nephrolithiasis or hydronephrosis. Moderately distended urinary bladder with normal wall thickness. Reproductive Organs: Unremarkable uterus. No adnexal mass. Colon: Rectal distention with well-formed stool with the lumen measuring 5.3 x 6.0 cm on image 66 series 2. No significant rectal wall thickening however there is edema of the mesorectal fat as seen on image 67 series 2. No definitive mass in the region of the anorectal junction. Well-formed stool to a lesser extent up to the splenic flexure. Incompletely formed stool within the more proximal colon. Appendix: Normal. Small Bowel: No pathologic dilatation. Stomach: Not fully characterize due to underdistention. Vasculature: Multifocal calcified and noncalcified atheromatous plaque. The most extensive noncalcified plaque is at the lower thoracic aorta. Tortuosity and atheromatous luminal irregularity of the abdominal aorta. No aneurysmal dilatation of the aorta. Slightly ectatic left common iliac artery relative to the right but measuring under 1.5 cm. No dissection. Lymph Nodes: No lymphadenopathy by size criteria. Peritoneum and Body Wall: No free fluid or pneumoperitoneum. No complex body wall hernia. Bones: Scattered degenerative changes. Mild retrolisthesis of L5 on S1. Osseous neural foraminal stenosis bilaterally at L5-S1. T11 vertebral body hemangioma. Right more so than left sacroiliac joint arthrosis. Miscellaneous: None. Impression: 1. Constipated state with well-formed stool within the colon from the splenic flexure through the rectum. Proximal to the splenic flexure there is incompletely formed stool within the colon. Rectal distention with well-formed stool is relatively mild however there is edema-like reticulation of the mesorectal fat. No significant wall thickening. The edema could be on account of a mild stercoral colitis. No obstructing process is seen at the anorectal junction but assessment of this region is limited by CT. Follow-up is recommend to help confirm the absence of partial obstruction at this location. 2. Moderate distention of the urinary bladder favored most likely voluntary but correlate for involuntary urinary retention. 3. Hepatic steatosis. 4. Atheromatous luminal irregularity of the abdominal aorta which is mildly tortuous but there is no aneurysmal dilatation or dissection. Ectatic left common iliac artery but not meeting size criteria to be considered aneurysmal. Electronically signed by: LYN EARLY MD (07/31/2020 2:12 PM) [facility] [] Course & Med Decision Making: Course & Med Decision Making Pertinent Labs and Imaging studies reviewed. (See chart for details) 75-year-old female presents emergency department for evaluation of constipation. CBC reveals elevated white blood cell count of 12.7, mild anemia with a hemoglobin of 11.4, hematocrit 34.8 otherwise unremarkable; CMP reveals a creatinine of 1.2, glucose of 120, magnesium 1.6, AST of 76, alk phos of 146. CT abdomen pelvis reveals: 1. Constipated state with well-formed stool within the colon from the splenic flexure through the rectum. Proximal to the splenic flexure there is incompletely formed stool within the colon. Rectal distention with well-formed stool is relatively mild however there is edema-like reticulation of the mesorectal fat. No significant wall thickening. The edema could be on account of a mild stercoral colitis. No obstructing process is seen at the anorectal junction but assessment of this region is limited by CT. Follow-up is recommend to help confirm the absence of partial obstruction at this location. 2. Moderate distention of the urinary bladder favored most likely voluntary but correlate for involuntary urinary retention. 3. Hepatic steatosis. 4. Atheromatous luminal irregularity of the abdominal aorta which is mildly tortuous but there is no aneurysmal dilatation or dissection. Ectatic left comm on iliac artery but not meeting size criteria to be considered aneurysmal. Patient was given a milk molasses enema in the emergency department she had a large bowel movement reported feeling better after that treatment. Patient stated she would like to go home. Her vital signs are stable in the emergency department. Prescription written for MiraLAX. Patient encouraged to follow-up with her primary care doctor this week, return to the ER symptoms worsen or fever develop. Patient and her Family member verbalized an understanding of home care, medications, follow-up, and return to ED instructions and were in agreement with the plan of care. [] Dragon Disclaimer: Dragon Disclaimer: This electronic medical record was generated, in whole or in part, using a voice recognition dictation system. Departure Departure Impression: Primary Impression: Fecal impaction in rectum Additional Impression: Constipation Disposition: 01 HOME / SELF CARE / HOMELESS Condition: STABLE Referrals: UNKNOWN PCP NAME (PCP) Patient Instructions: Constipation, Adult, [id number], Fecal Impaction Additional Instructions: Fill the prescription and take it as directed. Increase clear fluids. Follow- up with your primary care doctor this week for reevaluation, return to the ER if symptoms worsen or fever develops. [facility] [address] [place] [address] [facility] [address] [place] [address] [facility] [address] [place] [address] [facility] [address] [place] [address] [facility] [address] [place] [address] [address] [place] [address] [address] [place] [address] [place] [address] [facility] [address] [place] [address] [facility] [address] [place] [address] [address] [place] [address] [facility] Polyethylene Glycol 3350 (MIRALAX) 119 Gm Powder 17 GM PO BID for constipation for 5 Days, #255 GM 0 Refills Drink 1 capful in 8 oz of water twice daily for 5 days then once a day to keep stools regular Prov: LEONARD RENTERIA POUNCER MACHINE 07/31/20 Problem Qualifiers Additional Impression: Constipation Constipation type: unspecified constipation type Qualified Codes: K59.00 - Constipation, unspecified LEONARD RENTERIA POUNCER MACHINE July 31, 2020 10:46
[2020-07-31] MEDS: ONDANSETRON PF 4 MG/2 ML VIAL. IV ONE (11:09)
[2020-07-31] MEDS: IV NORMAL SALINE 1000ML BAG 1,000 ML IV ONE (11:09)
[2020-07-31] MEDS: fentaNYL PF VIAL 100 MCG/2 ML VIAL IV ONE ×2 (11:09→13:07)
[2020-07-31] MEDS ORDERED: CONTRAST GIVEN. MC PRN (11:30)
[2020-07-31] MEDS: IOHEXOL 300 MG/ML 100ML VIAL. IV ONE (11:30)
[2020-07-31 12:39] LABS: BASO % 0 % (0-3); EOS # 0.3 x10^3/uL (0.0-0.7); EOS % 3 % (0-3); HEMATOCRIT 34.8 % (36.0-47.0); HEMOGLOBIN 11.4 g/dL (12.0-15.5); LYMPH # 2.2 x10^3/uL (1.0-4.8); LYMPH % 18 % (24-48); MEAN CORPUSCULAR HEMOGLOBIN 31 pg (25-35); MEAN CORPUSCULAR HGB CONC 33 g/dL (31-37); MEAN CORPUSCULAR VOLUME 96 fL (79-100); MONO # 0.8 x10^3/uL (0.0-1.1); MONO % 6 % (0-9); NEUT # 9.3 x10^3/uL (1.8-7.7); NEUT % 74 % (31-73); PLATELET COUNT 177 x10^3/uL (140-400); RED BLOOD COUNT 3.63 x10^6/uL (3.50-5.40); RED CELL DISTRIBUTION WIDTH 13.2 % (11.5-14.5); WHITE BLOOD COUNT 12.7 x10^3/uL (4.0-11.0)
[2020-07-31 13:04] LABS: CALCIUM 8.7 mg/dL (8.5-10.1); CREATININE 1.2 mg/dL (0.6-1.0); GFR 43.6; POTASSIUM 5.1 mmol/L (3.5-5.1)
[2020-07-31 13:13] LABS: ALBUMIN 3.7 g/dL (3.4-5.0); ALBUMIN/GLOBULIN RATIO 0.8 (1.0-1.7); MAGNESIUM 1.6 mg/dL (1.8-2.4); TOTAL BILIRUBIN 0.2 mg/dL (0.2-1.0); TOTAL PROTEIN 8.3 g/dL (6.4-8.2)
[2020-07-31 14:08] VITALS: BP 176/80
--- NOTE | 2020-07-31 14:14 | RAD ---
Study: CT abdomen/pelvis with intravenous contrast Indication: Left lower quadrant abdominal pain. Comparison: None. Technique: Helical CT imaging performed of the abdomen and pelvis after the intravenous administratio n of 60 cc Omnipaque 300 contrast. Sagittal and coronal reformats were obtained. One or more of the following individualized dose reduction techniques were utilized for this examinat ion: 1. Automated exposure control 2. Adjustment of the mA and/or kV according to patient size 3. Use of iterative reconstruction technique. Findings: Chest: Motion degraded assessment of the lower lungs. Mild atelectasis. No dense consolidation, basil ar effusion or suspicious pulmonary nodule. Liver: Hepatic steatosis. Gallbladder/Biliary Tree: No CT manifestations of acute cholecystitis. Within normal limits biliary t ree for patient age. Pancreas: No mass or ductal dilatation. Spleen: Within normal limits for size. Adrenal Glands: No adrenal gland mass. Kidneys/Ureters/Bladder: Cyst exophytic off the left kidney upper pole measuring up to 1.8 cm. Symmet marcelina renal parenchymal enhancement. No nephrolithiasis or hydronephrosis. Moderately distended urinary bladder with normal wall thickness. Reproductive Organs: Unremarkable uterus. No adnexal mass. Colon: Rectal distention with well-formed stool with the lumen measuring 5.3 x 6.0 cm on image 66 ser ies 2. No significant rectal wall thickening however there is edema of the mesorectal fat as seen on image 67 series 2. No definitive mass in the region of the anorectal junction. Well-formed stool to a lesser extent up to the splenic flexure. Incompletely formed stool within the more proximal colon. Appendix: Normal. Small Bowel: No pathologic dilatation. Stomach: Not fully characterize due to underdistention. Vasculature: Multifocal calcified and noncalcified atheromatous plaque. The most extensive noncalcifi ed plaque is at the lower thoracic aorta. Tortuosity and atheromatous luminal irregularity of the abd ominal aorta. No aneurysmal dilatation of the aorta. Slightly ectatic left common iliac artery relati ve to the right but measuring under 1.5 cm. No dissection. Lymph Nodes: No lymphadenopathy by size criteria. Peritoneum and Body Wall: No free fluid or pneumoperitoneum. No complex body wall hernia. Bones: Scattered degenerative changes. Mild retrolisthesis of L5 on S1. Osseous neural foraminal sten osis bilaterally at L5-S1. T11 vertebral body hemangioma. Right more so than left sacroiliac joint ar throsis. Miscellaneous: None. Impression: 1. Constipated state with well-formed stool within the colon from the splenic flexure through the re ctum. Proximal to the splenic flexure there is incompletely formed stool within the colon. Rectal dis tention with well-formed stool is relatively mild however there is edema-like reticulation of the mes orectal fat. No significant wall thickening. The edema could be on account of a mild stercoral coliti s. No obstructing process is seen at the anorectal junction but assessment of this region is limited by CT. Follow-up is recommend to help confirm the absence of partial obstruction at this location. 2. Moderate distention of the urinary bladder favored most likely voluntary but correlate for involu ntary urinary retention. 3. Hepatic steatosis. 4. Atheromatous luminal irregularity of the abdominal aorta which is mildly tortuous but there is no aneurysmal dilatation or dissection. Ectatic left common iliac artery but not meeting size criteria to be considered aneurysmal. Electronically signed by: LYN EARLY MD (07/31/2020 2:12 PM) [facility]
[2020-07-31] MEDS ORDERED: POLY119P4 PO (15:19)
== END 2020-07-31 15:40 | disposition home or self-care (01) ==
LOC: ER 09:55
DX: K56.41 Fecal impaction (principal); K21.9 Gastro-esophageal reflux disease without esophagitis; E78.00 Pure hypercholesterolemia, unspecified; I10 Essential (primary) hypertension; J45.909 Unspecified asthma, uncomplicated; Z88.1 Allergy status to other antibiotic agents
CPT/HCPCS: 74177; 80053; 83735; 85025; 96361; 96374; 96375; 96376; 99285; J2405; J3010; J7030; Q9967

== ENCOUNTER 2020-09-19 13:00 | Emergency (ER) | payer OTHER ==
[~2020-09-19] VITALS: Ht 152.4 cm; Wt 50.7 kg
[~2020-09-19 13:00] MED LIST changes: -OMEP40CA45 PO; +OMEP40CA7 PO; +POLY119P4 PO
--- NOTE | 2020-09-19 15:41 | EKG ---
[facility] [address] [place] [address] Test Date: 2020-09-19 Test Time: 15:37:08 Pat Name: MOSES RODRIGUEZ Department: Room: Gender: F Manager Core: : 1945 Requested By: LEAH GALVEZ Order Number: [id number] Reading MD: Measurements Intervals [place] Rate: 61 P: 36 MD: 186 QRS: -25 QRSD: 76 T: 5 QT: 458 QTc: 463 Interpretive Statements SINUS RHYTHM LEFTWARD AXIS QRS(T) CONTOUR ABNORMALITY CONSIDER ANTEROSEPTAL MYOCARDIAL DAMAGE POSSIBLY ABNORMAL ECG RI6.02 Compared to ECG 07/11/2020 13:28:42 No significant changes
[2020-09-19 16:04] LABS: BASO # 0.1 x10^3/uL (0.0-0.2); BASO % 1 % (0-3); EOS # 0.3 x10^3/uL (0.0-0.7); EOS % 3 % (0-3); HEMOGLOBIN 9.8 g/dL (12.0-15.5); LYMPH # 3.1 x10^3/uL (1.0-4.8); LYMPH % 25 % (24-48); MEAN CORPUSCULAR HEMOGLOBIN 31 pg (25-35); MEAN CORPUSCULAR HGB CONC 33 g/dL (31-37); MEAN CORPUSCULAR VOLUME 94 fL (79-100); MONO # 0.9 x10^3/uL (0.0-1.1); MONO % 8 % (0-9); NEUT # 7.8 x10^3/uL (1.8-7.7); NEUT % 63 % (31-73); PLATELET COUNT 270 x10^3/uL (140-400); RED BLOOD COUNT 3.18 x10^6/uL (3.50-5.40); RED CELL DISTRIBUTION WIDTH 14.3 % (11.5-14.5); WHITE BLOOD COUNT 12.4 x10^3/uL (4.0-11.0)
[2020-09-19 16:20] LABS: CALCIUM 8.3 mg/dL (8.5-10.1); CREATININE 0.9 mg/dL (0.6-1.0); GFR 60.7; POTASSIUM 4.4 mmol/L (3.5-5.1)
[2020-09-19 16:26] LABS: ALBUMIN 2.7 g/dL (3.4-5.0); ALBUMIN/GLOBULIN RATIO 0.6 (1.0-1.7); MAGNESIUM 1.6 mg/dL (1.8-2.4); TOTAL BILIRUBIN 0.2 mg/dL (0.2-1.0); TOTAL PROTEIN 7.3 g/dL (6.4-8.2)
--- NOTE | 2020-09-19 16:44 | PHYS DOC ---
Past Medical History Past Medical History: Asthma, GERD, High Cholesterol, Hypertension (LEAH GALVEZ Kelby PICKER TENDER HELPER) Past Surgical History: No Surgical History (LEAH GALVEZ Kelby GARCIA) Smoking Status: Never Smoker Alcohol Use: None Drug Use: None (LEAH GALVEZ JOSE) General Adult EDM: Chief Complaint: COUGH HPI: HPI: Patient is a 75 year old female with a history of hypertension, high cholesterol, asthma, who presents to the ED today complaining of a productive cough, fever and sore throat, symptoms began 3 days ago. Patient denies any chest pain, denies any shortness of breath. Reports traveling from [place] by car 2 weeks ago. Patient is Georgian speaking and interpretation is provided by her [id number] as well as a family friend (LEAH GALVEZ JOSE) Review of Systems: Review of Systems: Constitutional: Reports fever Eyes: Denies change in visual acuity. [] HENT: Reports sore throat, denies nasal congestion Respiratory: Reports cough. Denies shortness of breath. [] Cardiovascular: Denies chest pain or edema. [] GI: Denies abdominal pain, nausea, vomiting, bloody stools or diarrhea. [] : Denies dysuria. [] Musculoskeletal: Denies back pain or joint pain. [] Integument: Denies rash. [] Neurologic: Denies headache, focal weakness or sensory changes. [] Psychiatric: Denies depression or anxiety. [] (LEAH GALVEZ Kelby PICKER TENDER HELPER) Heart Score: C/O Chest Pain: N/A Risk Factors: Risk Factors: DM, Current or recent (<one month) smoker, HTN, HLP, family history of CAD, obesity. Risk Scores: Score 0 - 3: 2.5% MACE over next 6 weeks - Discharge Home Score 4 - 6: 20.3% MACE over next 6 weeks - Admit for Clinical Observation Score 7 - 10: 72.7% MACE over next 6 weeks - Early Invasive Strategies (ДМИТРИЙKhloeLEAH Kelby GARCIA) C/O Chest Pain: N/A (JHON TRAN DO) Current Medications: Current Medications Medications (Trade) Dose Ordered Sig/Sonia Start Time Stop Time Status Last Admin Dose Admin Info (CONTRAST GIVEN -- Rx MONITORING) 1 each PRN DAILY PRN 09/19/20 16:45 09/21/20 16:44 Iohexol (Omnipaque 350 Mg/ml) 75 ml 1X ONCE 09/19/20 16:45 09/19/20 16:46 (LEAH GALVEZ PICK[employer] TENDER HELPER) Allergies: Allergies: Allergies Coded Allergies Type Severity Reaction Last Updated Verified amlodipine Allergy Intermediate 07/11/20 Yes (LEAH GALVEZ PICKER TENDER HELPER) Physical Exam: PE: Constitutional: Well developed, well nourished, no acute distress, non-toxic appearance. [] HENT: Normocephalic, atraumatic, bilateral external ears normal, oropharynx moist, no oral exudates, nose normal. [] Eyes: PERRLA, EOMI, conjunctiva normal, no discharge. [] Neck: Normal range of motion, no tenderness, supple, no stridor. [] Cardiovascular:Heart rate regular rhythm, no murmur [] Lungs & Thorax: Bilateral breath sounds clear to auscultation [] Abdomen: Bowel sounds normal, soft, no tenderness, no masses, no pulsatile masses. [] Skin: Warm, dry, no erythema, no rash. [] Back: No tenderness, no CVA tenderness. [] Extremities: No tenderness, no cyanosis, no clubbing, ROM intact, no edema. [] Neurologic: Alert and oriented X 3, normal motor function, normal sensory function, no focal deficits noted. [] Psychologic: Affect normal, judgement normal, mood normal. [] (LEAH GALVEZ PICKER TENDER HELPER) Current Patient Data: Labs: Laboratory Tests Test 09/19/20 15:54 White Blood Count 12.4 x10^3/uL (4.0-11.0) H Red Blood Count 3.18 x10^6/uL (3.50-5.40) L Hemoglobin 9.8 g/dL (12.0-15.5) L Hematocrit 30.0 % (36.0-47.0) L Mean Corpuscular Volume 94 fL (79-100) Mean Corpuscular Hemoglobin 31 pg (25-35) Mean Corpuscular Hemoglobin Concent 33 g/dL (31-37) Red Cell Distribution Width 14.3 % (11.5-14.5) Platelet Count 270 x10^3/uL (140-400) Neutrophils (%) (Auto) 63 % (31-73) Lymphocytes (%) (Auto) 25 % (24-48) Monocytes (%) (Auto) 8 % (0-9) Eosinophils (%) (Auto) 3 % (0-3) Basophils (%) (Auto) 1 % (0-3) Neutrophils # (Auto) 7.8 x10^3/uL (1.8-7.7) H Lymphocytes # (Auto) 3.1 x10^3/uL (1.0-4.8) Monocytes # (Auto) 0.9 x10^3/uL (0.0-1.1) Eosinophils # (Auto) 0.3 x10^3/uL (0.0-0.7) Basophils # (Auto) 0.1 x10^3/uL (0.0-0.2) Sodium Level 137 mmol/L (136-145) Potassium Level 4.4 mmol/L (3.5-5.1) Chloride Level 105 mmol/L (98-107) Carbon Dioxide Level 23 mmol/L (21-32) Anion Gap 9 (6-14) Blood Urea Nitrogen 8 mg/dL (7-20) Creatinine 0.9 mg/dL (0.6-1.0) Estimated GFR (Cockcroft-Gault) 60.7 BUN/Creatinine Ratio 9 (6-20) Glucose Level 109 mg/dL (70-99) H Lactic Acid Level 1.1 mmol/L (0.4-2.0) Calcium Level 8.3 mg/dL (8.5-10.1) L Magnesium Level 1.6 mg/dL (1.8-2.4) L Total Bilirubin 0.2 mg/dL (0.2-1.0) Aspartate Amino Transferase (AST) 50 U/L (15-37) H Alanine Aminotransferase (ALT) 39 U/L (14-59) Alkaline Phosphatase 129 U/L (46-116) H Troponin I Quantitative < 0.017 ng/mL (0.000-0.055) HR-Zaw-T-Type Natriuretic Peptide 816 pg/mL (0-449) H Total Protein 7.3 g/dL (6.4-8.2) Albumin 2.7 g/dL (3.4-5.0) L Albumin/Globulin Ratio 0.6 (1.0-1.7) L Thyroid Stimulating Hormone (TSH) 0.476 uIU/mL (0.358-3.74) Laboratory Tests 09/19/20 15:54 Laboratory Tests 09/19/20 15:54 Vital Signs: Vital Signs Date Time Temp Pulse Resp B/P (MAP) Pulse Ox O2 Delivery O2 Flow Rate FiO2 09/19/20 14:32 98.3 59 20 134/82 (112) 99 Room Air 98.3 (LEAH GALVEZ PICKER TENDER HELPER) EKG: EK interpreted by Dr. Salcedo sinus rhythm heart rate 63 no STEMI [address] Salcedo sinus rhythm heart rate 61 no STEMI [] (LEAH GALVEZ PICKER TENDER HELPER) Radiology/Procedures: Radiology/Procedures: []PROCEDURE: CT ANGIOGRAPHY CHEST Exam: CT of chest with contrast INDICATION: Chest pain, short of air TECHNIQUE: Sequential axial images through the chest obtained following the administration of 75 mL of Isovue-370 IV contrast. Sagittal and coronal r eformatted images were reconstructed from the axial data and reviewed. 3-D reformatted images were reconstructed from the axial data and reviewed. Exposure: One or more of the following in the visualized dose reduction techniques were utilized for this examination: 1. Automated exposure control 2. Adjustment of the MA and/or KV according to patient size 3. Use of iterative of reconstructive technique Comparisons: Chest x-ray 09/04/2019 FINDINGS: Visualized portions of the thyroid are unremarkable. Several prominent but not enlarged pretracheal and bilateral hilar lymph nodes are noted. Heart size is normal. No pericardial effusion. Thoracic aorta has a normal course and caliber. Pulmonary artery is not enlarged. No pulmonary embolus identified within the main, lobar or segmental pulmonary arteries. Airways are patent. Patchy areas of tree-in-bud nodularity and consolidative changes noted in the right middle lobe and right lower lobe. Visualized upper abdomen is unremarkable. No suspicious osseous lesions or acute fractures. IMPRESSION: 1. No pulmonary embolus identified within the main, lobar or segmental pulmonary arteries. 2. Patchy airspace disease at the right middle lobe and lower lobe with tree-in-bud nodularity favored to be infectious or inflammatory in etiology. Follow-up imaging posttreatment to ensure resolution is recommended. Electronically signed by: Dottie June MD (09/19/2020 5:25 PM) [facility] DICTATED and SIGNED BY: DOTTIE JUNE MD DATE: 09/19/20 [id number] (LEAH GALVEZ APRN) Course & Med Decision Making: Course & Med Decision Making Pertinent Labs and Imaging studies reviewed. (See chart for details) This is a 75-year-old female patient presented to the ED today with fever, sore throat, headache, symptoms for 3 days. Patient received Covid vaccine back in June. Patient is afebrile in the ED. Vitals are very stable. CBC with a WBC of 12.4. Hemoglobin and hematocrit are slightly low but within patient's baseline. CMP with nothing really acute CTA chest was negative for PE, noted for right middle and lower lobe pneumonia. Patient was given Rocephin in the ED, she was discharged on Augmentin. Follow- up with PCP in the next 3 days. Provided family return precautions (LEAH GALVEZ APRN) Course & Med Decision Making Patients Care and treatment plan provided by ER Nurse Practitioner. I was a vailable for consult. Patient's chart reviewed. (JHON TRAN DO) Haley Disclaimer: Haley Disclaimer: This electronic medical record was generated, in whole or in part, using a voice recognition dictation system. (LEAH GALVEZ APRN) Departure Departure Impression: Primary Impression: Right lower lobe pneumonia Qualified Codes: J18.9 - Pneumonia, unspecified organism Additional Impression: Headache Qualified Codes: R51.9 - Headache, unspecified Disposition: 01 HOME / SELF CARE / HOMELESS Condition: STABLE Referrals: UNKNOWN PCP NAME (PCP) follow up with your doctor in one week Patient Instructions: Headache, FAQs, Pneumonia, Adult Additional Instructions: You have pneumonia. Take the prescribed antibiotics until completed. Take the rest of the medicines as ordered. Please follow-up with your primary care doctor in the course of this week Scripts Benzonatate (TESSALON PERLE) 100 Mg Capsule 1 CAP PO TID, #30 CAP Prov: LEAH GALVEZ APRN 09/19/20 Guaifenesin/Codeine Phosphate (GUAIFENESIN-CODEINE SYRUP) 118 Ml Liquid 5 ML PO Q6HRS, #120 ML Prov: LEAH GALVEZ APRN 09/19/20 Amoxicillin/Potassium Clav (AUGMENTIN 875-125 TABLET) 1 Each Tablet 1 TAB PO BID for 10 Days, #20 TAB 0 Refills Prov: LEAH GALVEZ APRN 09/19/20 Prednisone (PREDNISONE) 50 Mg Tablet 1 TAB PO DAILY, #5 TAB Prov: LEAH GALVEZ APRN 09/19/20 LEAH GALVEZ APRN Sep 19, 2020 16:44 JHON TRAN DO Sep 21, 2020 20:23
[2020-09-19] MEDS ORDERED: IOHEXOL 350 MG/ML 100 ML VIAL. IV ONE (16:45)
[2020-09-19] MEDS ORDERED: CONTRAST GIVEN. MC PRN (16:45)
--- NOTE | 2020-09-19 16:59 | EKG ---
[facility] [address] [place] [address] Test Date: 2020-09-19 Test Time: 16:29:50 Pat Name: MOSES RODRIGUEZ Department: Room: Gender: F Automatic Buffer: : 1945 Requested By: LEAH GALVEZ Order Number: [id number] Reading MD: Measurements Intervals [place] Rate: 63 P: 32 GA: 188 QRS: -26 QRSD: 76 T: -1 QT: 444 QTc: 458 Interpretive Statements SINUS RHYTHM LEFTWARD AXIS QRS(T) CONTOUR ABNORMALITY CONSIDER ANTEROSEPTAL MYOCARDIAL DAMAGE POSSIBLY ABNORMAL ECG RI6.02 No previous ECG available for comparison
--- NOTE | 2020-09-19 17:28 | RAD ---
Exam: CT of chest with contrast INDICATION: Chest pain, short of air TECHNIQUE: Sequential axial images through the chest obtained following the administration of 75 mL o f Isovue-370 IV contrast. Sagittal and coronal reformatted images were reconstructed from the axial d rl and reviewed. 3-D reformatted images were reconstructed from the axial data and reviewed. Exposure: One or more of the following in the visualized dose reduction techniques were utilized for this examination: 1. Automated exposure control 2. Adjustment of the MA and/or KV according to patient size 3. Use of iterative of reconstructive technique Comparisons: Chest x-ray 09/04/2019 FINDINGS: Visualized portions of the thyroid are unremarkable. Several prominent but not enlarged pretracheal a nd bilateral hilar lymph nodes are noted. Heart size is normal. No pericardial effusion. Thoracic aorta has a normal course and caliber. Pulmon vic artery is not enlarged. No pulmonary embolus identified within the main, lobar or segmental pulmo nary arteries. Airways are patent. Patchy areas of tree-in-bud nodularity and consolidative changes noted in the rig ht middle lobe and right lower lobe. Visualized upper abdomen is unremarkable. No suspicious osseous lesions or acute fractures. IMPRESSION: 1. No pulmonary embolus identified within the main, lobar or segmental pulmonary arteries. 2. Patchy airspace disease at the right middle lobe and lower lobe with tree-in-bud nodularity favor ed to be infectious or inflammatory in etiology. Follow-up imaging posttreatment to ensure resolution is recommended. Electronically signed by: Dottie Arreaga MD (09/19/2020 5:25 PM) [facility]
[2020-09-19 17:33] LABS: BILIRUBIN,URINE NEGATIVE (NEG); CLARITY,URINE CLEAR; COLOR,URINE YELLOW; NITRITE,URINE NEGATIVE (NEG); PH,URINE 5.5 (<5.0-8.0); PROTEIN,URINE 30 mg/dL (NEG-TRACE); UROBILINOGEN,URINE 0.2 mg/dL (0.2 mg/dL)
[2020-09-19 17:42] LABS: BACTERIA,URINE 0 /HPF (0-FEW); RBC,URINE OCC /HPF (0-2); WBC,URINE 0 /HPF (0-4)
[2020-09-19] MEDS ORDERED: PRED50TA PO (18:38)
[2020-09-19] MEDS ORDERED: GUAI118L13 PO (18:38)
[2020-09-19] MEDS ORDERED: BENZ100C PO (18:38)
[2020-09-19] MEDS ORDERED: AMOX1TAB61 PO (18:38)
[2020-09-19] MEDS ORDERED: cefTRIAXone IV Push 1 GM VIAL. IVP ONE (18:45)
[2020-09-19 18:48] VITALS: BP 167/84
== END 2020-09-19 18:59 | disposition home or self-care (01) ==
LOC: ER 13:00
DX: J18.9 Pneumonia, unspecified organism (principal); R51.9 Headache, unspecified; J45.909 Unspecified asthma, uncomplicated; K21.9 Gastro-esophageal reflux disease without esophagitis; E78.00 Pure hypercholesterolemia, unspecified; I10 Essential (primary) hypertension; Z88.8 Allergy status to other drugs, medicaments and biological substances
CPT/HCPCS: 36415; 71275; 80053; 81001; 83605; 83735; 83880; 84145; 84443; 84484; 85025; 87040; 93005; 96374; 99285; J0696; Q9967

== ENCOUNTER 2021-04-21 11:21 | Emergency (ER) | payer OTHER ==
[~2021-04-21] VITALS: Ht 152.4 cm; Wt 54.0 kg
[~2021-04-21 11:21] MED LIST changes: +BENZ100C PO; +GUAI118L13 PO; +PRED50TA PO
--- NOTE | 2021-04-21 11:59 | PHYS DOC ---
Past Medical History Past Medical History: Asthma, GERD, High Cholesterol, Hypertension Past Surgical History: No Surgical History Smoking Status: Never Smoker Alcohol Use: None Drug Use: None General Adult EDM: Chief Complaint: MULTIPLE COMPLAINTS HPI: HPI: Patient is a 75 year old female who presents with approximately 1 week ago started having a burning tingling sensation to her right back upper arm and to lateral to posterior forearm area and also her right upper back and then she broke out in clear blisters that were very itchy and burn. They have been putting antibiotic ointment and calamine lotion on to the area. Patient and the patient's son states that she had been feeling feverish but they did not measure her temperature. Patient is a poor historian and so his son. Son states that the patient cannot remember about vaccine status for chickenpox or shingles and does not remember if she had chickenpox as a child. She rates her pain a 8 out of 10. Denies chest pain, shortness of breath, vision change, abdominal pain, nausea, vomiting or diarrhea, headache, dizziness, loss of taste or smell. Review of Systems: Review of Systems: Constitutional: Denies fever or chills. [] Eyes: Denies change in visual acuity. [] HENT: Denies nasal congestion or sore throat. [] Respiratory: Denies cough or shortness of breath. [] Cardiovascular: Denies chest pain or edema. [] GI: Denies abdominal pain, nausea, vomiting, bloody stools or diarrhea. [] : Denies dysuria. [] Musculoskeletal: Denies back pain or joint pain. + Right arm pain [] Integument: + Right upper back rash.+ Right back of arm and forearm rash [] Neurologic: Denies headache, focal weakness or sensory changes. [] Endocrine: Denies polyuria or polydipsia. [] Lymphatic: Denies swollen glands. [] Psychiatric: Denies depression or anxiety. [] Heart Score: C/O Chest Pain: No Allergies: Allergies: Allergies Coded Allergies Type Severity Reaction Last Updated Verified amlodipine Allergy Intermediate 07/11/20 Yes Physical Exam: PE: Constitutional: Well developed, well nourished, no acute distress, non-toxic appearance. [] HENT: Normocephalic, atraumatic, bilateral external ears normal, oropharynx moist, no oral exudates, nose normal. [] Eyes: PERRLA, EOMI, conjunctiva normal, no discharge. [] Neck: Normal range of motion, no tenderness, supple, no stridor. [] Cardiovascular:Heart rate regular rhythm, no murmur [] Lungs & Thorax: Bilateral breath sounds clear to auscultation [] Abdomen: Bowel sounds normal, soft, no tenderness, no masses, no pulsatile masses. [] Skin: Warm, dry, no erythema, right shoulder blade area, right back of arm and posterior forearm rash is scabbed over. [] Back: No tenderness, no CVA tenderness. [] Extremities: No tenderness, no cyanosis, no clubbing, ROM intact, no edema. [] Neurologic: Alert and oriented X 3, normal motor function, normal sensory function, no focal deficits noted. [] Psychologic: Affect normal, judgement normal, mood normal. [] Current Patient Data: Vital Signs: Vital Signs Date Time Temp Pulse Resp B/P (MAP) Pulse Ox O2 Delivery O2 Flow Rate FiO2 04/21/21 11:25 98.6 18 142/64 (90) 100 Room Air 98.6 EKG: EKG: [] Radiology/Procedures: Radiology/Procedures: [] Course & Med Decision Making: Course & Med Decision Making Pertinent Labs and Imaging studies reviewed. (See chart for details) See HPI. Alert and oriented x4. Ambulatory steady gait. Speaks in full clear sentences. Son is in the room interpreting for the patient. Patient has scabbed over blister rash to right upper back, back of her arm that goes down into the posterior forearm. No cellulitis. Patient is mainly complaining of the burning sensation of pain. She is afebrile. No extremity edema. No drainage from the areas. [] Dragon Disclaimer: Dragon Disclaimer: This electronic medical record was generated, in whole or in part, using a voice recognition dictation system. Departure Departure Impression: Primary Impression: Shingles rash Qualified Codes: B02.9 - Zoster without complications Disposition: HOME / SELF CARE / HOMELESS Condition: STABLE Referrals: UNKNOWN PCP NAME (PCP) Patient Instructions: Shingles Additional Instructions: Follow-up with primary care provider in the next 5 days. Take medication as prescribed. Drink plenty of fluids to stay hydrated. Keep the areas clean. Watch for infection signs such as increased redness, drainage. Scripts Gabapentin (GABAPENTIN ) 300 Mg Capsule 300 MG PO BID for NEUROGENIC PAIN for 5 Days, #10 CAP Prov: JUNIOR TSANG APRN 04/21/21 Cephalexin (KEFLEX) 500 Mg Capsule 1 CAP PO TID for 7 Days, #21 CAP Prov: JUNIOR TSANG APRN 04/21/21 Lidocaine/Prilocaine (LIDOCAINE-PRILOCAINE CREAM) 30 Gm Cream..g. 1 ELROY TP UD, #30 GM 1 Refill Prov: JUNIOR TSANG APRN 04/21/21 JUNIOR TSANG APRN Apr 21, 2021 11:59
[2021-04-21 13:02] LABS: BASO % 1 % (0-3); EOS # 0.3 x10^3/uL (0.0-0.7); EOS % 6 % (0-3); HEMATOCRIT 31.3 % (36.0-47.0); HEMOGLOBIN 9.9 g/dL (12.0-15.5); LYMPH # 1.8 x10^3/uL (1.0-4.8); LYMPH % 39 % (24-48); MEAN CORPUSCULAR HEMOGLOBIN 30 pg (25-35); MEAN CORPUSCULAR HGB CONC 32 g/dL (31-37); MEAN CORPUSCULAR VOLUME 93 fL (79-100); MONO # 0.8 x10^3/uL (0.0-1.1); NEUT # 1.7 x10^3/uL (1.8-7.7); NEUT % 36 % (31-73); PLATELET COUNT 184 x10^3/uL (140-400); RED BLOOD COUNT 3.36 x10^6/uL (3.50-5.40); RED CELL DISTRIBUTION WIDTH 14.3 % (11.5-14.5); WHITE BLOOD COUNT 4.7 x10^3/uL (4.0-11.0)
[2021-04-21 13:03] LABS: BILIRUBIN,URINE NEGATIVE (NEG); CLARITY,URINE CLEAR; COLOR,URINE YELLOW; NITRITE,URINE NEGATIVE (NEG); PH,URINE 5.5 (<5.0-8.0); PROTEIN,URINE 30 mg/dL (NEG-TRACE); UROBILINOGEN,URINE 0.2 mg/dL (0.2 mg/dL)
[2021-04-21 13:13] LABS: CALCIUM 7.9 mg/dL (8.5-10.1); CREATININE 1.3 mg/dL (0.6-1.0); GFR 39.7; POTASSIUM 3.9 mmol/L (3.5-5.1)
[2021-04-21 13:38] LABS: HYALINE CASTS, URINE MODERATE /HPF
[2021-04-21 13:39] LABS: BACTERIA,URINE 0 /HPF (0-FEW)
[2021-04-21] MEDS ORDERED: LIDO30CR2 TP (13:52)
[2021-04-21] MEDS ORDERED: GABA300C18 PO (13:52)
[2021-04-21] MEDS ORDERED: CEPH500C PO (13:52)
[2021-04-21 14:29] VITALS: BP 130/76
[2021-04-21 18:14] LABS: MONO % 18 % (0-9)
== END 2021-04-21 14:35 | disposition home or self-care (01) ==
LOC: ER 11:21
DX: B02.9 Zoster without complications (principal); J45.909 Unspecified asthma, uncomplicated; K21.9 Gastro-esophageal reflux disease without esophagitis; E78.00 Pure hypercholesterolemia, unspecified; I10 Essential (primary) hypertension; Z88.1 Allergy status to other antibiotic agents
CPT/HCPCS: 36415; 80048; 81001; 85025; 99285-25

== ENCOUNTER 2021-05-06 19:38 | Inpatient (IN) | payer OTHER ==
[~2021-05-06] VITALS: Ht 142.2 cm; Wt 42.5 kg
[~2021-05-06 19:38] MED LIST changes: +CEPH500C PO; +GABA300C18 PO; +LIDO30CR2 TP
[2021-05-06] MEDS ORDERED: IV NORMAL SALINE 1000ML BAG 1,000 ML IV ONE (20:45)
[2021-05-06 21:20] LABS: BASO % 1 % (0-3); EOS % 0 % (0-3); HEMATOCRIT 30.5 % (36.0-47.0); HEMOGLOBIN 10.3 g/dL (12.0-15.5); LYMPH % 33 % (24-48); MEAN CORPUSCULAR HEMOGLOBIN 30 pg (25-35); MEAN CORPUSCULAR HGB CONC 34 g/dL (31-37); MEAN CORPUSCULAR VOLUME 89 fL (79-100); MONO # 0.3 x10^3/uL (0.0-1.1); MONO % 4 % (0-9); NEUT # 5.8 x10^3/uL (1.8-7.7); NEUT % 63 % (31-73); PLATELET COUNT 367 x10^3/uL (140-400); RED BLOOD COUNT 3.41 x10^6/uL (3.50-5.40); RED CELL DISTRIBUTION WIDTH 14.3 % (11.5-14.5); WHITE BLOOD COUNT 9.2 x10^3/uL (4.0-11.0)
[2021-05-06 21:34] LABS: ALBUMIN 3.9 g/dL (3.4-5.0); ALBUMIN/GLOBULIN RATIO 0.7 (1.0-1.7); CALCIUM 9.1 mg/dL (8.5-10.1); CREATININE 1.8 mg/dL (0.6-1.0); GFR 27.3; TOTAL BILIRUBIN 0.2 mg/dL (0.2-1.0); TOTAL PROTEIN 9.3 g/dL (6.4-8.2)
[2021-05-06 22:05] LABS: CALCIUM 8.3 mg/dL (8.5-10.1); CREATININE 1.7 mg/dL (0.6-1.0); GFR 29.1
[2021-05-06 22:08] LABS: POTASSIUM 6.9 mmol/L (3.5-5.1)
--- NOTE | 2021-05-06 22:25 | PHYS DOC ---
Past Medical History Past Medical History: Asthma, GERD, High Cholesterol, Hypertension, Renal Disease Additional Past Medical Histor: CHICKEN POX (LEAH GALVEZ VICE PRESIDENT OF PRODUCT MARKETING) Past Surgical History: No Surgical History (LEAH GALVEZ VICE PRESIDENT OF PRODUCT MARKETING) Smoking Status: Former Smoker Alcohol Use: None Drug Use: None (LEAH GALVEZ VICE PRESIDENT OF PRODUCT MARKETING) General Adult EDM: Chief Complaint: ITCHING HPI: HPI: Patient is a 75 year old female with history of hypertension, asthma, kidney disease, who presents to the ED today to be evaluated for poor appetite and itching. Patient son is doing most of the speaking. He states patient was diagnosed with shingles in April 2021, he states patient has been taking Benadryl and completed what sounds like a Medrol Dosepak but she is still itching. He states patient has not had anything significant to eat or drink for the last 2 weeks. He states patient is not sleeping at night due to itching. Son denies patient having any fever, coughing, abdominal pain, chest pain or shortness of breath. (LEAH GALVEZ VICE PRESIDENT [employer] PRODUCT MARKETING) Review of Systems: Review of Systems: Constitutional: Reports poor appetite, denies fever or chills. [] Eyes: Denies change in visual acuity. [] HENT: Denies nasal congestion or sore throat. [] Respiratory: Denies cough or shortness of breath. [] Cardiovascular: Denies chest pain or edema. [] GI: Denies abdominal pain, nausea, vomiting, bloody stools or diarrhea. [] : Denies dysuria. [] Musculoskeletal: Denies back pain or joint pain. [] Integument: Reports itching Neurologic: Denies headache, focal weakness or sensory changes. [] Psychiatric: Denies depression or anxiety. [] (LEAH GALVEZ VICE PRESIDENT [employer] PRODUCT MARKETING) Heart Score: C/O Chest Pain: N/A Risk Factors: Risk Factors: DM, Current or recent (<one month) smoker, HTN, HLP, family history of CAD, obesity. Risk Scores: Score 0 - 3: 2.5% MACE over next 6 weeks - Discharge Home Score 4 - 6: 20.3% MACE over next 6 weeks - Admit for Clinical Observation Score 7 - 10: 72.7% MACE over next 6 weeks - Early Invasive Strategies (LEAH GALVEZ VICE PRESIDENT [employer]ODUCT MARKETING) Current Medications: Current Medications Medications (Trade) Dose Ordered Sig/Sonia Start Time Stop Time Status Last Admin Dose Admin Sodium Chloride 1,000 ml @ 1,000 mls/hr 1X ONCE 05/06/21 20:45 05/06/21 21:44 DC 05/06/21 21:15 1,000 MLS/HR (LEAH GALVEZ VICE PRESIDENT [employer]ODUCT MARKETING) Allergies: Allergies: Allergies Coded Allergies Type Severity Reaction Last Updated Verified amlodipine Allergy Intermediate 07/11/20 Yes (LEAH GALVEZ VICE PRESIDENT [employer]ODUCT MARKETING) Physical Exam: PE: Constitutional: Well developed, well nourished, no acute distress, non-toxic appearance. [] HENT: Normocephalic, atraumatic, bilateral external ears normal, oropharynx moist, no oral exudates, nose normal. [] Eyes: PERRLA, EOMI, conjunctiva normal, no discharge. [] Neck: Normal range of motion, no tenderness, supple, no stridor. [] Cardiovascular:Heart rate regular rhythm, no murmur [] Lungs & Thorax: Bilateral breath sounds clear to auscultation [] Abdomen: Bowel sounds normal, soft, no tenderness, no masses, no pulsatile masses. [] Skin: Right medial forearm with scarring and scabs from shingles Back: No tenderness, no CVA tenderness. [] Extremities: No tenderness, no cyanosis, no clubbing, ROM intact, no edema. [] Neurologic: Alert and oriented X 3, normal motor function, normal sensory function, no focal deficits noted. [] Psychologic: Affect normal, judgement normal, mood normal. [] (LEAH GALVEZ VICE PRESIDENT [employer] PRODUCT MARKETING) Current Patient Data: Labs: Laboratory Tests Test 05/06/21 21:14 05/06/21 21:45 White Blood Count 9.2 x10^3/uL (4.0-11.0) Red Blood Count 3.41 x10^6/uL (3.50-5.40) L Hemoglobin 10.3 g/dL (12.0-15.5) L Hematocrit 30.5 % (36.0-47.0) L Mean Corpuscular Volume 89 fL (79-100) Mean Corpuscular Hemoglobin 30 pg (25-35) Mean Corpuscular Hemoglobin Concent 34 g/dL (31-37) Red Cell Distribution Width 14.3 % (11.5-14.5) Platelet Count 367 x10^3/uL (140-400) Neutrophils (%) (Auto) 63 % (31-73) Lymphocytes (%) (Auto) 33 % (24-48) Monocytes (%) (Auto) 4 % (0-9) Eosinophils (%) (Auto) 0 % (0-3) Basophils (%) (Auto) 1 % (0-3) Neutrophils # (Auto) 5.8 x10^3/uL (1.8-7.7) Lymphocytes # (Auto) 3.0 x10^3/uL (1.0-4.8) Monocytes # (Auto) 0.3 x10^3/uL (0.0-1.1) Eosinophils # (Auto) 0.0 x10^3/uL (0.0-0.7) Basophils # (Auto) 0.0 x10^3/uL (0.0-0.2) Sodium Level 131 mmol/L (136-145) L 131 mmol/L (136-145) L Potassium Level 7.0 mmol/L (3.5-5.1) *H 6.9 mmol/L (3.5-5.1) *H Chloride Level 100 mmol/L (98-107) 104 mmol/L (98-107) Carbon Dioxide Level 18 mmol/L (21-32) L 16 mmol/L (21-32) L Anion Gap 13 (6-14) 11 (6-14) Blood Urea Nitrogen 32 mg/dL (7-20) H 33 mg/dL (7-20) H Creatinine 1.8 mg/dL (0.6-1.0) H 1.7 mg/dL (0.6-1.0) H Estimated GFR (Cockcroft-Gault) 27.3 29.1 BUN/Creatinine Ratio 18 (6-20) Glucose Level 121 mg/dL (70-99) H 111 mg/dL (70-99) H Calcium Level 9.1 mg/dL (8.5-10.1) 8.3 mg/dL (8.5-10.1) L Total Bilirubin 0.2 mg/dL (0.2-1.0) Aspartate Amino Transferase (AST) 32 U/L (15-37) Alanine Aminotransferase (ALT) 36 U/L (14-59) Alkaline Phosphatase 92 U/L (46-116) Total Protein 9.3 g/dL (6.4-8.2) H Albumin 3.9 g/dL (3.4-5.0) Albumin/Globulin Ratio 0.7 (1.0-1.7) L Laboratory Tests 05/06/21 21:14 Laboratory Tests 05/06/21 21:14 05/06/21 21:45 Vital Signs: Vital Signs Date Time Temp Pulse Resp B/P (MAP) Pulse Ox O2 Delivery O2 Flow Rate FiO2 05/06/21 20:25 98.7 62 16 139/97 (111) 98 Room Air 98.7 (LEAH GALVEZ APRN) Radiology/Procedures: Radiology/Procedures: [] (LEAH GALVEZ APRN) Course & Med Decision Making: Course & Med Decision Making Pertinent Labs and Imaging studies reviewed. (See chart for details) This a 75-year-old female patient presented to the ED today with the son to be evaluated for itching, poor appetite and lack of sleep. Patient was diagnosed with shingles around April 21, 2021. Son reports she has not had anything significant to eat or drink for 2 weeks. Vitals on arrival to the ED temperature 98.7, heart rate 62, respirations 16, blood pressure 139/97, O2 sats 98%. CBC with a normal WBC, hemoglobin 10.9 with hematocrit of 30.5, CMP with potassium of 7.0, potassium was repeated, 6.9. Creatinine 1.8 BUN 32. History of hyperkalemia and kidney disease Consulted with Dr. Henry, hyperkalemia protocol started Admitted under (LEAH GALVEZ APRN) Course & Med Decision Making Patients Care and treatment plan provided by ER Nurse Practitioner. I was available for consult. Patient's chart reviewed. (JHON HENRY DO) Haley Disclaimer: Haley Disclaimer: This electronic medical record was generated, in whole or in part, using a voice recognition dictation system. (LEAH GALVEZ APRN) Departure Departure Impression: Primary Impression: Hyperkalemia Additional Impressions: Anemia Qualified Codes: N18.9 - Chronic kidney disease, unspecified; D63.1 - Anemia in chronic kidney disease Chronic kidney disease Qualified Codes: N18.9 - Chronic kidney disease, unspecified Itching Disposition: ADMITTED INPATIENT Condition: STABLE Referrals: UNKNOWN PCP NAME (PCP) LEAH GALVEZ APRN May 06, 2021 22:25 JHON HENRY DO May 07, 2021 18:45
[2021-05-06] MEDS ORDERED: CALCIUM GLUCONATE 1,000 MG/10 ML VIAL. IVP ONE (22:30)
[2021-05-06] MEDS ORDERED: SODIUM POLYSTYRENE SULFON/SORB 15 GM/60 ML ORAL.SUSP. PO ONE (22:30)
[2021-05-06] MEDS ORDERED: INSULIN REGULAR 100 UNIT/ML 3ML VIAL. IV ONE (22:30)
[2021-05-06] MEDS ORDERED: DEXTROSE 50% 25 GM / 50ML DISP.SYRIN. IV ONE (22:30)
[2021-05-06] MEDS ORDERED: SODIUM BICARB ADULT 8.4% 50 MEQ/50 ML DISP.SYRIN. IV ONE (22:30)
[2021-05-06] MEDS ORDERED: hydrOXYzine 25 MG TABLET PO STA (22:38)
[2021-05-07] VITALS (7 sets, daily range): BP systolic 113–191; BP diastolic 63–96
[2021-05-07] MEDS ORDERED: fentaNYL PF VIAL 100 MCG/2 ML VIAL IVP PRN (00:15)
[2021-05-07] MEDS ORDERED: ONDANSETRON PF 4 MG/2 ML VIAL. IVP PRN (00:15)
[2021-05-07] MEDS ORDERED: ACETAMINOPHEN 325 MG TABLET. PO PRN (00:15)
[2021-05-07] MEDS: IV NORMAL SALINE 1000ML BAG 1,000 ML IV SCH ×2 (00:52→13:48)
[2021-05-07] MEDS: diphenhydrAMINE 50 MG/ML VIAL IVP PRN ×3 (00:52→19:18)
--- NOTE | 2021-05-07 00:55 | NUR ---
Pt arrived to unit per wheelchair accompanied by son pt ambulated to bed with standby assist, pt tele monitor applied vs obtained pt blood pressure elevated at this time pt son stated pt did not take evening medications. Pt alert and oriented x4 pt speaks JAPANESE pt denied pain at this time poc explained to pt and pt son. Pt history obtained from son assessment completed pt oriented to surroundings call light placed in reach will resume care and continue to monitor pt.
--- NOTE | 2021-05-07 01:11 | EKG ---
[facility] [address] [place] [address] Test Date: 2021-05-06 Test Time: 21:51:37 Pat Name: MOSES RODRIGUEZ Department: Room: 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
[2021-05-07] MEDS ORDERED: SULF1TAB24 PO (02:52)
--- NOTE | 2021-05-07 08:29 | PDOC2 ---
CONSULT Date of Consult Date of Consult DATE: 05/07/21 TIME: 08:29 Reason for Consult Reason for Consult: Uncontrolled hypertension Referring Physician Referring Physician: Dr. Dominguez Identification/Chief Complaint Chief Complaint Itching Source Source: Caregiver, Chart review, Patient History of Present Illness Reason for Visit: 75-year-old female with history of hypertension was brought by son for lack of appetite and itching. She was apparently diagnosed with shingles last month and has been taking Benadryl and Medrol Dosepak but she continues to have itching. She has had loss of appetite for the last 2 to 3 weeks. She denied any chest pain, orthopnea/PND, palpitations or syncope. She was noted to have accelerated hypertension and hyperkalemia and admitted for further management. Past Medical History Cardiovascular: HTN Pulmonary: COPD, Other CENTRAL NERVOUS SYSTEM: Other GI: GERD Heme/Onc: No pertinent hx Hepatobiliary: No pertinent hx Psych: No pertinent hx Musculoskeletal: Osteoarthritis Rheumatologic: No pertinent hx Infectious disease: No pertinent hx Renal/: No pertinent hx Endocrine: No pertinent hx Past Surgical History Past Surgical History: No pertinent history Family History Family History: Family History Unknown Social History ALCOHOL: occassional Drugs: None Lives: with Family Current Problem List Problem List Problems Medical Problems: (1) Anemia Status: Acute (2) Chronic kidney disease Status: Acute (3) Hyperkalemia Status: Acute (4) Itching Status: Acute Current Medications Current Medications Current Medications Sodium Chloride 1,000 ml @ 1,000 mls/hr 1X ONCE IV Last administered on 05/06/21at 21:15; Start 05/06/21 at 20:45; Stop 05/06/21 at 21:44; Status DC Calcium Gluconate (Calcium Gluconate) 1,000 mg 1X ONCE IVP Last administered on 05/06/21 23:30; Start 05/06/21 at 22:30; Stop 05/06/21 at 22:31; Status DC Sodium Bicarbonate (Sodium Bicarb Adult 8.4% Syr) 50 meq 1X ONCE IV Last administered on 05/06/21 23:41; Start 05/06/21 at 22:30; Stop 05/06/21 at 22:31; Status DC Dextrose (Dextrose 50%-Water Syringe) 25 gm 1X ONCE IV Last administered on 05/06/21 23:48; Start 05/06/21 at 22:30; Stop 05/06/21 at 22:31; Status DC Insulin Human Regular (HumuLIN R VIAL) 10 unit 1X ONCE IV Last administered on 05/06/21at 23:48; Start 05/06/21 at 22:30; Stop 05/06/21 at 22:31; Status DC Sodium Polystyrene Sulfonate (Kayexalate) 30 gm 1X ONCE PO Last administered on 05/07/21at 00:51; Start 05/06/21 at 22:30; Stop 05/06/21 at 22:31; Status DC Hydroxyzine HCl (Atarax) 25 mg 1X STAT PO Last administered on 05/06/21at 23:27; Start 05/06/21 at 22:38; Stop 05/06/21 at 22:40; Status DC Ondansetron HCl (Zofran) 4 mg PRN Q8HRS PRN IVP NAUSEA/VOMITING; Start 05/07/21 at 00:15; Stop 05/08/21 at 00:14 Fentanyl Citrate (Fentanyl 2ml Vial) 50 mcg PRN Q1HR PRN IVP PAIN; Start 05/07/21 at 00:15; Stop 05/08/21 at 00:14 Acetaminophen (Tylenol) 650 mg PRN Q4HRS PRN PO FEVER > 100.3'F; Start 05/07/21 at 00:15; Stop 05/08/21 at 00:14 Sodium Chloride 1,000 ml @ 75 mls/hr [id number] IV Last administered on 05/07/21at 00:52; Start 05/07/21 at 00:15 Diphenhydramine HCl (Benadryl) 25 mg PRN Q6HRS PRN IVP ITCHING Last administered on 05/07/21at 00:52; Start 05/07/21 at 00:15 Active Scripts Active Lidocaine-Prilocaine Cream (Lidocaine/Prilocaine) 30 Gm Cream..g. 1 Deloris TP UD Miralax (Polyethylene Glycol 3350) 119 Gm Powder 17 Gm PO BID 5 Days Drink 1 capful in 8 oz of water twice daily for 5 days then once a day to keep stools regular Aspirin Ec (Aspirin) 81 Mg Tablet.dr 81 Mg PO DAILYWBKFT 30 Days Clonidine Hcl 0.1 Mg Tablet 0.1 Mg PO BID Reported Bactrim Ds Tablet (Sulfamethoxazole/Trimethoprim) 1 Each Tablet 1 Tab PO BID 10 Days Hydrochlorothiazide Tablet (Hydrochlorothiazide) 25 Mg Tablet 25 Mg PO DAILY Metoprolol Succinate ( Xl ) (Metoprolol Succinate) 100 Mg Tab.er.24h 100 Mg PO DAILY Omeprazole 40 Mg Capsule. 1 Cap PO DAILY Allergies Allergies: Coded Allergies: amlodipine (Verified Allergy, Intermediate, 07/11/20) ROS Review of System 14 point review of systems is positive for symptoms noted in HPI and otherwise negative Physical Exam General: Alert, No acute distress HEENT: Atraumatic Lungs: Clear to auscultation Heart: Regular rate Abdomen: Soft Extremities: No edema Neuro: Normal speech Psych/Mental Status: Mood NL Vitals VITALS Vital Signs Date Time Temp Pulse Resp B/P (MAP) Pulse Ox O2 Delivery O2 Flow Rate FiO2 05/07/21 07:00 98.4 63 13 175/88 (117) 97 Room Air 98.4 Labs Labs Laboratory Tests Test 05/06/21 21:14 05/06/21 21:45 White Blood Count 9.2 x10^3/uL (4.0-11.0) Red Blood Count 3.41 x10^6/uL (3.50-5.40) Hemoglobin 10.3 g/dL (12.0-15.5) Hematocrit 30.5 % (36.0-47.0) Mean Corpuscular Volume 89 fL (79-100) Mean Corpuscular Hemoglobin 30 pg (25-35) Mean Corpuscular Hemoglobin Concent 34 g/dL (31-37) Red Cell Distribution Width 14.3 % (11.5-14.5) Platelet Count 367 x10^3/uL (140-400) Neutrophils (%) (Auto) 63 % (31-73) Lymphocytes (%) (Auto) 33 % (24-48) Monocytes (%) (Auto) 4 % (0-9) Eosinophils (%) (Auto) 0 % (0-3) Basophils (%) (Auto) 1 % (0-3) Neutrophils # (Auto) 5.8 x10^3/uL (1.8-7.7) Lymphocytes # (Auto) 3.0 x10^3/uL (1.0-4.8) Monocytes # (Auto) 0.3 x10^3/uL (0.0-1.1) Eosinophils # (Auto) 0.0 x10^3/uL (0.0-0.7) Basophils # (Auto) 0.0 x10^3/uL (0.0-0.2) Sodium Level 131 mmol/L (136-145) 131 mmol/L (136-145) Potassium Level 7.0 mmol/L (3.5-5.1) 6.9 mmol/L (3.5-5.1) Chloride Level 100 mmol/L (98-107) 104 mmol/L (98-107) Carbon Dioxide Level 18 mmol/L (21-32) 16 mmol/L (21-32) Anion Gap 13 (6-14) 11 (6-14) Blood Urea Nitrogen 32 mg/dL (7-20) 33 mg/dL (7-20) Creatinine 1.8 mg/dL (0.6-1.0) 1.7 mg/dL (0.6-1.0) Estimated GFR (Cockcroft-Gault) 27.3 29.1 BUN/Creatinine Ratio 18 (6-20) Glucose Level 121 mg/dL (70-99) 111 mg/dL (70-99) Calcium Level 9.1 mg/dL (8.5-10.1) 8.3 mg/dL (8.5-10.1) Total Bilirubin 0.2 mg/dL (0.2-1.0) Aspartate Amino Transf (AST/SGOT) 32 U/L (15-37) Alanine Aminotransferase (ALT/SGPT) 36 U/L (14-59) Alkaline Phosphatase 92 U/L (46-116) Total Protein 9.3 g/dL (6.4-8.2) Albumin 3.9 g/dL (3.4-5.0) Albumin/Globulin Ratio 0.7 (1.0-1.7) Laboratory Tests Test 05/06/21 21:14 05/06/21 21:45 White Blood Count 9.2 x10^3/uL (4.0-11.0) Red Blood Count 3.41 x10^6/uL (3.50-5.40) Hemoglobin 10.3 g/dL (12.0-15.5) Hematocrit 30.5 % (36.0-47.0) Mean Corpuscular Volume 89 fL (79-100) Mean Corpuscular Hemoglobin 30 pg (25-35) Mean Corpuscular Hemoglobin Concent 34 g/dL (31-37) Red Cell Distribution Width 14.3 % (11.5-14.5) Platelet Count 367 x10^3/uL (140-400) Neutrophils (%) (Auto) 63 % (31-73) Lymphocytes (%) (Auto) 33 % (24-48) Monocytes (%) (Auto) 4 % (0-9) Eosinophils (%) (Auto) 0 % (0-3) Basophils (%) (Auto) 1 % (0-3) Neutrophils # (Auto) 5.8 x10^3/uL (1.8-7.7) Lymphocytes # (Auto) 3.0 x10^3/uL (1.0-4.8) Monocytes # (Auto) 0.3 x10^3/uL (0.0-1.1) Eosinophils # (Auto) 0.0 x10^3/uL (0.0-0.7) Basophils # (Auto) 0.0 x10^3/uL (0.0-0.2) Sodium Level 131 mmol/L (136-145) 131 mmol/L (136-145) Potassium Level 7.0 mmol/L (3.5-5.1) 6.9 mmol/L (3.5-5.1) Chloride Level 100 mmol/L (98-107) 104 mmol/L (98-107) Carbon Dioxide Level 18 mmol/L (21-32) 16 mmol/L (21-32) Anion Gap 13 (6-14) 11 (6-14) Blood Urea Nitrogen 32 mg/dL (7-20) 33 mg/dL (7-20) Creatinine 1.8 mg/dL (0.6-1.0) 1.7 mg/dL (0.6-1.0) Estimated GFR (Cockcroft-Gault) 27.3 29.1 BUN/Creatinine Ratio 18 (6-20) Glucose Level 121 mg/dL (70-99) 111 mg/dL (70-99) Calcium Level 9.1 mg/dL (8.5-10.1) 8.3 mg/dL (8.5-10.1) Total Bilirubin 0.2 mg/dL (0.2-1.0) Aspartate Amino Transf (AST/SGOT) 32 U/L (15-37) Alanine Aminotransferase (ALT/SGPT) 36 U/L (14-59) Alkaline Phosphatase 92 U/L (46-116) Total Protein 9.3 g/dL (6.4-8.2) Albumin 3.9 g/dL (3.4-5.0) Albumin/Globulin Ratio 0.7 (1.0-1.7) Assessment/Plan Assessment/Plan 1. Hyperkalemia, acute kidney injury, thought to be secondary to combination of being on Bactrim and dehydration. Bactrim and HCTZ stopped. Nephrology following. 2. Accelerated hypertension: Better controlled since admission. Continue current medical regimen. 3. Atrial fibrillation: Patient had 1 episode in the setting of uncontrolled hypertension in July 2020 but has not had regular follow-ups. 2D echo at that time showed LVEF 65 to 70%. She is presently in sinus rhythm. Continue aspirin for stroke prophylaxis. Thank you for your consultation SERENITY GUTIÉRREZ MD May 07, 2021 08:29
[2021-05-07] MEDS ORDERED: SMZ/TMP 800/160MG TABLET. PO ONE (09:00)
[2021-05-07] MEDS: LIDOCAINE/PRILOCAINE TOPICAL CREAM 5GM TUBE. TP SCH (09:00)
[2021-05-07] MEDS ORDERED: hydroCHLOROthiazide 25 MG TABLET PO SCH (09:00)
[2021-05-07] MEDS: ASPIRIN ENTERIC COATED 81 MG TABLET.DR. PO SCH (09:29)
[2021-05-07] MEDS: PANTOPRAZOLE 40 MG TABLET.DR. PO SCH (09:29)
[2021-05-07] MEDS: cloNIDine HCL 0.1 MG TABLET PO SCH ×2 (09:29→20:30)
[2021-05-07] MEDS: METOPROLOL SUCC 24HR ER 100 MG TAB.ER.24H. PO SCH (09:30)
--- NOTE | 2021-05-07 11:30 | PDOC2 ---
CONSULT Date of Consult Date of Consult DATE: 05/07/21 TIME: 11:23 Reason for Consult Reason for Consult: LEONORA AND HIGH K Referring Physician Referring Physician: ELLY Identification/Chief Complaint Chief Complaint WEAKNESS AND SKIN RASH Source Source: Caregiver, Chart review History of Present Illness Reason for Visit: THIS IS A 75 YR OLD WITH WEAKNESS AND SKIN RASH. WAS DX WITH SHINGLES NOT LONG AGO AND THEN DEVELOPED A RIGHT FA INFECTION FOR WHICH SHE WAS STARTED ON AND FINISHED 6 DAYS OF YESTERDAY. GOT LAST DOSE THIS AM. SHE HAS NOT BEEN EATING MUCH FOR ABOUT A WEEK ACCORDING TO HER SON. CR OF 1.8 AND K OF 7.0 WITH NON GAP MET ACIDOSIS NOTED. SON NOT AWARE OF ANY CKD OR OTHER HX. Past Medical History Cardiovascular: HTN Pulmonary: COPD, Other CENTRAL NERVOUS SYSTEM: Other GI: GERD Heme/Onc: No pertinent hx Hepatobiliary: No pertinent hx Psych: No pertinent hx Musculoskeletal: Osteoarthritis Rheumatologic: No pertinent hx Infectious disease: No pertinent hx Renal/: No pertinent hx Endocrine: No pertinent hx Past Surgical History Past Surgical History: No pertinent history Family History Family History: Family History Unknown Social History ALCOHOL: occassional Drugs: None Lives: with Family Current Problem List Problem List Problems Medical Problems: (1) Anemia Status: Acute (2) Chronic kidney disease Status: Acute (3) Hyperkalemia Status: Acute (4) Itching Status: Acute Current Medications Current Medications Current Medications Sodium Chloride 1,000 ml @ 1,000 mls/hr 1X ONCE IV Last administered on 05/06/21 21:15; Start 05/06/21 at 20:45; Stop 05/06/21 at 21:44; Status DC Calcium Gluconate (Calcium Gluconate) 1,000 mg 1X ONCE IVP Last administered on 05/06/21at 23:30; Start 05/06/21 at 22:30; Stop 05/06/21 at 22:31; Status DC Sodium Bicarbonate (Sodium Bicarb Adult 8.4% Syr) 50 meq 1X ONCE IV Last administered on 05/06/21 23:41; Start 05/06/21 at 22:30; Stop 05/06/21 at 22:31; Status DC Dextrose (Dextrose 50%-Water Syringe) 25 gm 1X ONCE IV Last administered on 05/06/21at 23:48; Start 05/06/21 at 22:30; Stop 05/06/21 at 22:31; Status DC Insulin Human Regular (HumuLIN R VIAL) 10 unit 1X ONCE IV Last administered on 05/06/21at 23:48; Start 05/06/21 at 22:30; Stop 05/06/21 at 22:31; Status DC Sodium Polystyrene Sulfonate (Kayexalate) 30 gm 1X ONCE PO Last administered on 05/07/21at 00:51; Start 05/06/21 at 22:30; Stop 05/06/21 at 22:31; Status DC Hydroxyzine HCl (Atarax) 25 mg 1X STAT PO Last administered on 05/06/21 23:27; Start 05/06/21 at 22:38; Stop 05/06/21 at 22:40; Status DC Ondansetron HCl (Zofran) 4 mg PRN Q8HRS PRN IVP NAUSEA/VOMITING; Start 05/07/21 at 00:15; Stop 05/08/21 at 00:14 Fentanyl Citrate (Fentanyl 2ml Vial) 50 mcg PRN Q1HR PRN IVP PAIN; Start 05/07/21 at 00:15; Stop 05/08/21 at 00:14 Acetaminophen (Tylenol) 650 mg PRN Q4HRS PRN PO FEVER > 100.3'F; Start 05/07/21 at 00:15; Stop 05/08/21 at 00:14 Sodium Chloride 1,000 ml @ 75 mls/hr [id number] IV Last administered on 05/07/21at 00:52; Start 05/07/21 at 00:15 Diphenhydramine HCl (Benadryl) 25 mg PRN Q6HRS PRN IVP ITCHING Last administered on 05/07/21at 09:30; Start 05/07/21 at 00:15 Aspirin (Ecotrin) 81 mg DAILYWBKFT PO Last administered on 05/07/21at 09:29; Start 05/07/21 at 09:00 Clonidine HCl (Catapres) 0.1 mg BID PO Last administered on 05/07/21 09:29; Start 05/07/21 at 09:00 Hydrochlorothiazide (Hydrodiuril) 25 mg DAILY PO Last administered on 05/07/21at 09:30; Start 05/07/21 at 09:00 Lidocaine/ Prilocaine (Emla) 1 deloris DAILY TP ; Start 05/07/21 at 09:00 Metoprolol Succinate (Toprol Xl) 100 mg DAILY PO Last administered on 05/07/21at 09:30; Start 05/07/21 at 09:00 Polyethylene Glycol (miraLAX PACKET) 17 gm BID PO ; Start 05/07/21 at 21:00 Trimethoprim/ Sulfamethoxazole (Bactrim Ds) 1 tab 1X ONCE PO Last administered on 05/07/21at 09:30; Start 05/07/21 at 09:00; Stop 05/07/21 at 09:23; Status DC Pantoprazole Sodium (Protonix) 40 mg DAILYAC PO Last administered on 05/07/21at 09:29; Start 05/07/21 at 09:00 Active Scripts Active Lidocaine-Prilocaine Cream (Lidocaine/Prilocaine) 30 Gm Cream..g. 1 Deloris TP UD Miralax (Polyethylene Glycol 3350) 119 Gm Powder 17 Gm PO BID 5 Days Drink 1 capful in 8 oz of water twice daily for 5 days then once a day to keep stools regular Aspirin Ec (Aspirin) 81 Mg Tablet. 81 Mg PO DAILYWBKFT 30 Days Clonidine Hcl 0.1 Mg Tablet 0.1 Mg PO BID Reported Bactrim Ds Tablet (Sulfamethoxazole/Trimethoprim) 1 Each Tablet 1 Tab PO BID 10 Days Hydrochlorothiazide Tablet (Hydrochlorothiazide) 25 Mg Tablet 25 Mg PO DAILY Metoprolol Succinate ( Xl ) (Metoprolol Succinate) 100 Mg Tab.er.24h 100 Mg PO DAILY Omeprazole 40 Mg Capsule. 1 Cap PO DAILY Allergies Allergies: Coded Allergies: amlodipine (Verified Allergy, Intermediate, 07/11/20) ROS General: YES: Fatigue, Malaise, Appetite PSYCHOLOGICAL ROS: YES: Anxiety Eyes: Yes Decreased vision HEENT: YES: Hemarcches ALLERGY AND IMMUNOLOGY: YES: Seasonal Allergies Gastrointestinal: Yes Nausea, Yes Constipation Genitourinary: YES Incontinence Musculoskeletal: Yes Muscular Weakness Neurological: Yes Weakness Skin: Yes Rash Physical Exam General: Alert, Oriented X3, Cooperative, No acute distress HEENT: Atraumatic Lungs: Clear to auscultation Heart: Regular rate Abdomen: Normal bowel sounds, Soft, No hepatosplenomegaly Extremities: No clubbing, No cyanosis, No edema Skin: Other (SOME DIFFUSE UE PAPULAR LESION, HEALING RIGHT FA SHINGLES LESION, NO DRAINAGE, SCABBING NOTED) Neuro: Normal speech Psych/Mental Status: Mental status NL, Mood NL MUSCULOSKELETAL: No joint tenderness, No deformity Vitals VITALS Vital Signs Date Time Temp Pulse Resp B/P (MAP) Pulse Ox O2 Delivery O2 Flow Rate FiO2 05/07/21 09:30 63 175/88 05/07/21 08:00 Room Air 05/07/21 07:00 98.4 13 97 98.4 Labs Labs Laboratory Tests Test 05/06/21 21:14 05/06/21 21:45 White Blood Count 9.2 x10^3/uL (4.0-11.0) Red Blood Count 3.41 x10^6/uL (3.50-5.40) Hemoglobin 10.3 g/dL (12.0-15.5) Hematocrit 30.5 % (36.0-47.0) Mean Corpuscular Volume 89 fL (79-100) Mean Corpuscular Hemoglobin 30 pg (25-35) Mean Corpuscular Hemoglobin Concent 34 g/dL (31-37) Red Cell Distribution Width 14.3 % (11.5-14.5) Platelet Count 367 x10^3/uL (140-400) Neutrophils (%) (Auto) 63 % (31-73) Lymphocytes (%) (Auto) 33 % (24-48) Monocytes (%) (Auto) 4 % (0-9) Eosinophils (%) (Auto) 0 % (0-3) Basophils (%) (Auto) 1 % (0-3) Neutrophils # (Auto) 5.8 x10^3/uL (1.8-7.7) Lymphocytes # (Auto) 3.0 x10^3/uL (1.0-4.8) Monocytes # (Auto) 0.3 x10^3/uL (0.0-1.1) Eosinophils # (Auto) 0.0 x10^3/uL (0.0-0.7) Basophils # (Auto) 0.0 x10^3/uL (0.0-0.2) Sodium Level 131 mmol/L (136-145) 131 mmol/L (136-145) Potassium Level 7.0 mmol/L (3.5-5.1) 6.9 mmol/L (3.5-5.1) Chloride Level 100 mmol/L (98-107) 104 mmol/L (98-107) Carbon Dioxide Level 18 mmol/L (21-32) 16 mmol/L (21-32) Anion Gap 13 (6-14) 11 (6-14) Blood Urea Nitrogen 32 mg/dL (7-20) 33 mg/dL (7-20) Creatinine 1.8 mg/dL (0.6-1.0) 1.7 mg/dL (0.6-1.0) Estimated GFR (Cockcroft-Gault) 27.3 29.1 BUN/Creatinine Ratio 18 (6-20) Glucose Level 121 mg/dL (70-99) 111 mg/dL (70-99) Calcium Level 9.1 mg/dL (8.5-10.1) 8.3 mg/dL (8.5-10.1) Total Bilirubin 0.2 mg/dL (0.2-1.0) Aspartate Amino Transf (AST/SGOT) 32 U/L (15-37) Alanine Aminotransferase (ALT/SGPT) 36 U/L (14-59) Alkaline Phosphatase 92 U/L (46-116) Total Protein 9.3 g/dL (6.4-8.2) Albumin 3.9 g/dL (3.4-5.0) Albumin/Globulin Ratio 0.7 (1.0-1.7) Laboratory Tests Test 05/06/21 21:14 05/06/21 21:45 White Blood Count 9.2 x10^3/uL (4.0-11.0) Red Blood Count 3.41 x10^6/uL (3.50-5.40) Hemoglobin 10.3 g/dL (12.0-15.5) Hematocrit 30.5 % (36.0-47.0) Mean Corpuscular Volume 89 fL (79-100) Mean Corpuscular Hemoglobin 30 pg (25-35) Mean Corpuscular Hemoglobin Concent 34 g/dL (31-37) Red Cell Distribution Width 14.3 % (11.5-14.5) Platelet Count 367 x10^3/uL (140-400) Neutrophils (%) (Auto) 63 % (31-73) Lymphocytes (%) (Auto) 33 % (24-48) Monocytes (%) (Auto) 4 % (0-9) Eosinophils (%) (Auto) 0 % (0-3) Basophils (%) (Auto) 1 % (0-3) Neutrophils # (Auto) 5.8 x10^3/uL (1.8-7.7) Lymphocytes # (Auto) 3.0 x10^3/uL (1.0-4.8) Monocytes # (Auto) 0.3 x10^3/uL (0.0-1.1) Eosinophils # (Auto) 0.0 x10^3/uL (0.0-0.7) Basophils # (Auto) 0.0 x10^3/uL (0.0-0.2) Sodium Level 131 mmol/L (136-145) 131 mmol/L (136-145) Potassium Level 7.0 mmol/L (3.5-5.1) 6.9 mmol/L (3.5-5.1) Chloride Level 100 mmol/L (98-107) 104 mmol/L (98-107) Carbon Dioxide Level 18 mmol/L (21-32) 16 mmol/L (21-32) Anion Gap 13 (6-14) 11 (6-14) Blood Urea Nitrogen 32 mg/dL (7-20) 33 mg/dL (7-20) Creatinine 1.8 mg/dL (0.6-1.0) 1.7 mg/dL (0.6-1.0) Estimated GFR (Cockcroft-Gault) 27.3 29.1 BUN/Creatinine Ratio 18 (6-20) Glucose Level 121 mg/dL (70-99) 111 mg/dL (70-99) Calcium Level 9.1 mg/dL (8.5-10.1) 8.3 mg/dL (8.5-10.1) Total Bilirubin 0.2 mg/dL (0.2-1.0) Aspartate Amino Transf (AST/SGOT) 32 U/L (15-37) Alanine Aminotransferase (ALT/SGPT) 36 U/L (14-59) Alkaline Phosphatase 92 U/L (46-116) Total Protein 9.3 g/dL (6.4-8.2) Albumin 3.9 g/dL (3.4-5.0) Albumin/Globulin Ratio 0.7 (1.0-1.7) Assessment/Plan Assessment/Plan IMP HYPERKALEMIA-PROB DUE TO BACTRIM LEONORA WITH CR OF 1.8 NON AG MET ACIDOSIS DEHYDRATION SUSPECT SULFA DRUG ALLERGY-CAUSING PRURITUS AND RASH PLAN CHECK UA STOP BACTRIM HYDRATION KAYEXALATE FOLLOW UP K STOP HCTZ UPDATED SON WILL FOLLOW DALLAS CHAUDHRY MD May 07, 2021 11:30
[2021-05-07 11:46] LABS: CALCIUM 7.8 mg/dL (8.5-10.1); CREATININE 1.3 mg/dL (0.6-1.0); GFR 39.7; POTASSIUM 4.1 mmol/L (3.5-5.1)
--- NOTE | 2021-05-07 12:25 | HP ---
DATE OF SERVICE: 05/07/2021 ADMIT DATE: 05/06/2021 CHIEF COMPLAINT: Itching. HISTORY OF PRESENT ILLNESS: The patient is a pleasant 75-year-old female from [facility]. She presented with itching and a poor appetite. Apparently, she had shingles back in April. She has been taking some Benadryl and a Medrol Dosepak, but was still itching. While in the ER, we noticed that her potassium was high at 7.0. I discussed the case with ER physician. We are going to admit the patient with consultation to Dr. Duran of the Nephrology service. PAST MEDICAL HISTORY: COPD, GERD, osteoarthritis. ALLERGIES: AMLODIPINE. FAMILY HISTORY: Coronary artery disease. SOCIAL HISTORY: She used to smoke. No drink or drugs. She is from [facility]. MEDICATIONS: Reviewed. Please refer to the MRAD. REVIEW OF SYSTEMS: GENERAL: No history of weight change, weakness or fevers. SKIN: No bruising, hair changes or rashes. EYES: No blurred, double or loss of vision. NOSE AND THROAT: No history of nosebleeds, hoarseness or sore throat. HEART: No history of palpitations, chest pain or shortness of breath on exertion. LUNGS: Denies cough, hemoptysis, wheezing or shortness of breath. GASTROINTESTINAL: Denies changes in appetite, nausea, vomiting, diarrhea or constipation. GENITOURINARY: No history of frequency, urgency, hesitancy or nocturia. NEUROLOGIC: Denies history of numbness, tingling, tremor or weakness. PSYCHIATRIC: No history of panic, anxiety or depression. ENDOCRINE: No history of heat or cold intolerance, polyuria or polydipsia. EXTREMITIES: Denies muscle weakness, joint pain, pain on walking or stiffness. PHYSICAL EXAMINATION: VITALS: Within normal limits and are stable. GENERAL: No apparent distress. Alert and oriented. HEENT: Normal cephalic atraumatic, external auditory canals are patent EYES: Extraocular muscles are intact, pupils are equally round and reactive to light and accommodation MUSCULOSKELETAL: Well developed, well nourished, good range of motion ENDOCRINE: No thyromegaly was palpated LYMPHATICS: No cervical chain or axillary nodes were noted HEMATOPOIETIC: No bruising NECK: Supple, no JVD, no thyromegaly was noted. LUNGS: Clear to auscultation in all lung abdalla without rhonchi or wheezing. HEART: RRR, S1, S2 present. Peripheral pulses intact, no obvious murmurs were noted. ABDOMEN: Soft, nontender. Positive bowel sounds no organomegaly, normal bowel sounds. EXTREMITIES: Without any cyanosis, clubbing, or edema. Pedal pulses intact, Homans sign is negative. NEUROLOGIC: Normal speech, normal tone. A and O x 3, moves all extremities, no obvious focal deficits. PSYCHIATRIC: Normal affect, normal mood. Stable. SKIN: No ulcerations or rashes, good skin turgor, no jaundice. VASCULAR: Good capillary refill, neurovascular bundle appears to be intact. LABORATORY DATA: Potassium 7, creatinine 1.8. ASSESSMENT AND PLAN: Acute kidney injury with hyperkalemia, probably secondary to Bactrim per Dr. Duran and we certainly agree and appreciate his input. We will stop Bactrim, give her IV fluids. We gave her Kayexalate. We will trend her labs especially her potassium. Continue other home meds. Deep vein thrombosis prophylaxis. Full code. MEAGHAN DR: MARYAM/gonzalez TID: [id number]
[2021-05-07 13:12] LABS: BILIRUBIN,URINE NEGATIVE (NEG); CLARITY,URINE CLEAR; COLOR,URINE STRAW; NITRITE,URINE NEGATIVE (NEG); PH,URINE 6.5 (<5.0-8.0); PROTEIN,URINE 30 mg/dL (NEG-TRACE); UROBILINOGEN,URINE 0.2 mg/dL (0.2 mg/dL)
[2021-05-07 13:13] LABS: BACTERIA,URINE 0 /HPF (0-FEW); RBC,URINE OCC /HPF (0-2); WBC,URINE OCC /HPF (0-4)
[2021-05-07] MEDS: POLYETHYLENE GLYCOL 3350 17 GM PACKET. PO SCH (20:30)
[2021-05-08 02:14] VITALS: BP 135/68
[2021-05-08] MEDS: IV NORMAL SALINE 1000ML BAG 1,000 ML IV SCH (02:32)
[2021-05-08 05:17] LABS: BASO % 1 % (0-3); EOS # 0.1 x10^3/uL (0.0-0.7); EOS % 1 % (0-3); HEMATOCRIT 29.2 % (36.0-47.0); HEMOGLOBIN 9.4 g/dL (12.0-15.5); LYMPH # 4.6 x10^3/uL (1.0-4.8); LYMPH % 51 % (24-48); MEAN CORPUSCULAR HEMOGLOBIN 30 pg (25-35); MEAN CORPUSCULAR HGB CONC 32 g/dL (31-37); MONO # 0.6 x10^3/uL (0.0-1.1); MONO % 6 % (0-9); NEUT # 3.7 x10^3/uL (1.8-7.7); NEUT % 41 % (31-73); PLATELET COUNT 251 x10^3/uL (140-400); RED BLOOD COUNT 3.12 x10^6/uL (3.50-5.40); RED CELL DISTRIBUTION WIDTH 14.4 % (11.5-14.5); WHITE BLOOD COUNT 9.1 x10^3/uL (4.0-11.0)
[2021-05-08 05:37] LABS: MEAN CORPUSCULAR VOLUME 93 fL (79-100)
[2021-05-08 05:45] LABS: ALBUMIN 2.8 g/dL (3.4-5.0); ALBUMIN/GLOBULIN RATIO 0.7 (1.0-1.7); CALCIUM 8.1 mg/dL (8.5-10.1); POTASSIUM 4.6 mmol/L (3.5-5.1); TOTAL BILIRUBIN 0.3 mg/dL (0.2-1.0); TOTAL PROTEIN 6.9 g/dL (6.4-8.2)
[2021-05-08 05:55] LABS: CREATININE 1.4 mg/dL (0.6-1.0); GFR 36.5
[2021-05-08] MEDS: PANTOPRAZOLE 40 MG TABLET.DR. PO SCH (06:10)
[2021-05-08 07:00] VITALS: BP 149/81
[2021-05-08] MEDS: ASPIRIN ENTERIC COATED 81 MG TABLET.DR. PO SCH (08:35)
[2021-05-08] MEDS: POLYETHYLENE GLYCOL 3350 17 GM PACKET. PO SCH (08:35)
[2021-05-08] MEDS: LIDOCAINE/PRILOCAINE TOPICAL CREAM 5GM TUBE. TP SCH (08:35)
[2021-05-08] MEDS: cloNIDine HCL 0.1 MG TABLET PO SCH (08:36)
[2021-05-08] MEDS: METOPROLOL SUCC 24HR ER 100 MG TAB.ER.24H. PO SCH (08:36)
--- NOTE | 2021-05-08 10:31 | PDOC ---
[employer] PROGRESS NOTE Date of Service DOS: DATE: 05/08/21 TIME: 10:30 Chief Complaint Chief Complaint Acute kidney injury with hyperkalemia, probably secondary to Bactrim COPD GERD OA History of Present Illness History of Present Illness 05/08/2021 Patient seen and examined Discussed with RN excellent chart reviewed Her potassium levels back down to within normal limits Vitals/I&O Vitals/I&O: Vital Signs Date Time Temp Pulse Resp B/P (MAP) Pulse Ox O2 Delivery O2 Flow Rate FiO2 05/08/21 08:36 67 149/81 05/08/21 08:00 Room Air 05/08/21 07:00 98.6 18 100 98.6 I & O 05/07/21 05/07/21 05/08/21 15:00 23:00 07:00 Intake Total 1180 ml 180 ml 1100 ml Balance 1180 ml 180 ml 1100 ml Physical Exam General: Alert, No acute distress Heart: Regular rate Lungs: Clear Abdomen: Soft Extremities: No edema Skin: Other (SOME DIFFUSE UE PAPULAR LESION, HEALING RIGHT FA SHINGLES LESION, NO DRAINAGE, SCABBING NOTED) Labs Labs: Laboratory Tests Test 05/07/21 12:00 05/08/21 04:40 Urine Collection Type Unknown Urine Color Straw Urine Clarity Clear Urine pH 6.5 (<5.0-8.0) Urine Specific [place] 1.020 (1.000-1.030) Urine Protein 30 mg/dL (NEG-TRACE) Urine Glucose (UA) Negative mg/dL (NEG) Urine Ketones (Stick) Negative mg/dL (NEG) Urine Blood Negative (NEG) Urine Nitrite Negative (NEG) Urine Bilirubin Negative (NEG) Urine Urobilinogen Dipstick 0.2 mg/dL (0.2 mg/dL) Urine Leukocyte Esterase Negative (NEG) Urine RBC Occ /HPF (0-2) Urine WBC Occ /HPF (0-4) Urine Squamous Epithelial Cells Few /LPF Urine Bacteria 0 /HPF (0-FEW) White Blood Count 9.1 x10^3/uL (4.0-11.0) Red Blood Count 3.12 x10^6/uL (3.50-5.40) Hemoglobin 9.4 g/dL (12.0-15.5) Hematocrit 29.2 % (36.0-47.0) Mean Corpuscular Volume 93 fL (79-100) Mean Corpuscular Hemoglobin 30 pg (25-35) Mean Corpuscular Hemoglobin Concent 32 g/dL (31-37) Red Cell Distribution Width 14.4 % (11.5-14.5) Platelet Count 251 x10^3/uL (140-400) Neutrophils (%) (Auto) 41 % (31-73) Lymphocytes (%) (Auto) 51 % (24-48) Monocytes (%) (Auto) 6 % (0-9) Eosinophils (%) (Auto) 1 % (0-3) Basophils (%) (Auto) 1 % (0-3) Neutrophils # (Auto) 3.7 x10^3/uL (1.8-7.7) Lymphocytes # (Auto) 4.6 x10^3/uL (1.0-4.8) Monocytes # (Auto) 0.6 x10^3/uL (0.0-1.1) Eosinophils # (Auto) 0.1 x10^3/uL (0.0-0.7) Basophils # (Auto) 0.0 x10^3/uL (0.0-0.2) Sodium Level 141 mmol/L (136-145) Potassium Level 4.6 mmol/L (3.5-5.1) Chloride Level 109 mmol/L (98-107) Carbon Dioxide Level 22 mmol/L (21-32) Anion Gap 10 (6-14) Blood Urea Nitrogen 17 mg/dL (7-20) Creatinine 1.4 mg/dL (0.6-1.0) Estimated GFR (Cockcroft-Gault) 36.5 BUN/Creatinine Ratio 12 (6-20) Glucose Level 80 mg/dL (70-99) Calcium Level 8.1 mg/dL (8.5-10.1) Total Bilirubin 0.3 mg/dL (0.2-1.0) Aspartate Amino Transf (AST/SGOT) 32 U/L (15-37) Alanine Aminotransferase (ALT/SGPT) 37 U/L (14-59) Alkaline Phosphatase 65 U/L (46-116) Total Protein 6.9 g/dL (6.4-8.2) Albumin 2.8 g/dL (3.4-5.0) Albumin/Globulin Ratio 0.7 (1.0-1.7) Assessment and Plan Assessmemt and Plan Problems Medical Problems: (1) Anemia Status: Acute (2) Chronic kidney disease Status: Acute (3) Hyperkalemia Status: Acute (4) Itching Status: Acute Acute kidney injury with hyperkalemia, probably secondary to Bactrim COPD GERD OA Plan Hope to discharge later today Comment Review of Relevant I have reviewed the following items ann (where applicable) has been applied. Medications: Current Medications Medications (Trade) Dose Ordered Sig/Sonia Route PRN Reason Start Time Stop Time Status Last Admin Dose Admin Polyethylene Glycol (miraLAX PACKET) 17 gm BID PO 05/07/21 21:00 05/08/21 08:35 Justifications for Admission Other Justification Weakness, hypertensive urgency DWAIN SHAH III DO May 08, 2021 10:31
[2021-05-08 10:32] VITALS: BP 173/84
--- NOTE | 2021-05-08 10:33 | SNU/HH DC ---
DISCHARGE WITH HOME HEALTH DISCHARGE INFORMATION: Final Diagnosis: Problems Medical Problems: (1) Anemia Status: Acute (2) Chronic kidney disease Status: Acute (3) Hyperkalemia Status: Acute (4) Itching Status: Acute Condition on Discharge: Stable CODE STATUS: Code Status: Full HOME HEALTH: Face to Face: I certify this patient is under my care and that I, or a nurse practitioner or physician's general assistant working with me, had a face to face encounter that meets the physician face to face encounter requirements with this patient on []. 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 POST DISCHARGE ORDERS: Activity Instructions for Disc: Activity as tolerated Weight Bearing Status after Di: As tolerated DIET AFTER DISCHARGE: Cardiac Wound/Incision Care: No wound care needed CHECKS AFTER DISCHARGE: Checks after discharge: Check blood press - daily, Check your Temp as needed CERTIFICATION STATEMENT: Certification Statement: Certification Statement: Based on the above finding, I certify that this patient is confined to the home and needs intermittent long term care, physical therapy and/or speech therapy, or continues to need occupational therapy.~ This patient is under my care, and I have initiated the establishment of the plan of care.~ This patient will be followed by myself or a community physician who will periodically review the plan of care. Home Meds Active Scripts Lidocaine/Prilocaine (LIDOCAINE-PRILOCAINE CREAM) 30 Gm Cream..g., 1 ELROY TP UD, #30 GM 1 Refill Prov:JUNIOR TSANG [facility] 04/21/21 Polyethylene Glycol 3350 (MIRALAX) 119 Gm Powder, 17 GM PO BID for constipation for 5 Days, #255 GM 0 Refills Drink 1 capful in 8 oz of water twice daily for 5 days then once a day to keep stools regular Prov:LEONARD RENTERIA [facility] 07/31/20 Aspirin (ASPIRIN EC) 81 Mg Tablet., 81 MG PO DAILYWBKFT for AFIB for 30 Days, #30 TAB.SR Prov:ELIZABETH NI [facility] 07/13/20 Clonidine Hcl (CLONIDINE HCL) 0.1 Mg Tablet, 0.1 MG PO BID for HTN, #60 TAB 1 Refill Prov:AGUSTIN BARTHOLOMEW MD 07/13/20 Reported Medications Hydrochlorothiazide (HYDROCHLOROTHIAZIDE TABLET ) 25 Mg Tablet, 25 MG PO DAILY for DIURETIC, TAB 0 Refills 07/11/20 Metoprolol Succinate (METOPROLOL SUCCINATE ( XL )) 100 Mg Tab.er.24h, 100 MG PO DAILY for FOR HYPERTENSION, #30 TAB 0 Refills 07/11/20 Omeprazole (OMEPRAZOLE) 40 Mg Capsule.dr, 1 CAP PO DAILY for GERD, #30 CAP 3 Refills 04/10/19 Discontinued Reported Medications Sulfamethoxazole/Trimethoprim (BACTRIM DS TABLET) 1 Each Tablet, 1 TAB PO BID for for 10 Days, #20 TAB 0 Refills 05/07/21 DWAIN SHAH III DO May 08, 2021 10:33
--- NOTE | 2021-05-08 10:44 | DS ---
DATE OF DISCHARGE: 05/08/2021 ADMITTING DIAGNOSIS: Hyperkalemia secondary to Bactrim therapy. DISCHARGE DIAGNOSES: Resolving hyperkalemia, resolving recent urinary tract infection, hypertension, gastroesophageal reflux disease, constipation. HOSPITAL COURSE: The patient is a pleasant elderly female who presented with weakness, we noticed that her potassium was 7.0. We admitted her, gave her Kayexalate. Consulted Nephrology. Dr. Duran felt like her hyperkalemia was secondary to Bactrim. I have added Bactrim to her allergy list now. This morning, I saw and examined her. She is doing well and wants to go home. Her potassium level is down to within normal limits. We plan to discharge. DISPOSITION: Home. ACTIVITY: As tolerated. DIET: Low sodium. DISCHARGE MEDICATIONS: Please see the MRAD. Aspirin 81 a day, clonidine 0.1 b.i.d., hydrochlorothiazide 25 a day, lidocaine/prilocaine cream, metoprolol 100 a day, omeprazole 40 a day and MiraLax. Total time is [address]: Nick TID: [id number]
--- NOTE | 2021-05-08 11:03 | PDOC ---
Renal-Progress Notes Subjective Notes Notes NO NEW COMPLAINTS, FEELING BETTER History of Present Illness Hx of present illness STABLE Vitals Vitals Vital Signs Date Time Temp Pulse Resp B/P (MAP) Pulse Ox O2 Delivery O2 Flow Rate FiO2 05/08/21 10:32 99.1 71 18 173/84 (113) 98 Nasal Cannula 99.1 Weight Weight [ ] I.O. Intake and Output Intake and Output 05/08/21 07:00 Intake Total 2460 ml Balance 2460 ml Intake Oral 460 ml IV Total 2000 ml # Voids 3 Labs Labs Laboratory Tests Test 05/07/21 12:00 05/08/21 04:40 Urine Collection Type Unknown Urine Color Straw Urine Clarity Clear Urine pH 6.5 (<5.0-8.0) Urine Specific [place] 1.020 (1.000-1.030) Urine Protein 30 mg/dL (NEG-TRACE) Urine Glucose (UA) Negative mg/dL (NEG) Urine Ketones (Stick) Negative mg/dL (NEG) Urine Blood Negative (NEG) Urine Nitrite Negative (NEG) Urine Bilirubin Negative (NEG) Urine Urobilinogen Dipstick 0.2 mg/dL (0.2 mg/dL) Urine Leukocyte Esterase Negative (NEG) Urine RBC Occ /HPF (0-2) Urine WBC Occ /HPF (0-4) Urine Squamous Epithelial Cells Few /LPF Urine Bacteria 0 /HPF (0-FEW) White Blood Count 9.1 x10^3/uL (4.0-11.0) Red Blood Count 3.12 x10^6/uL (3.50-5.40) Hemoglobin 9.4 g/dL (12.0-15.5) Hematocrit 29.2 % (36.0-47.0) Mean Corpuscular Volume 93 fL (79-100) Mean Corpuscular Hemoglobin 30 pg (25-35) Mean Corpuscular Hemoglobin Concent 32 g/dL (31-37) Red Cell Distribution Width 14.4 % (11.5-14.5) Platelet Count 251 x10^3/uL (140-400) Neutrophils (%) (Auto) 41 % (31-73) Lymphocytes (%) (Auto) 51 % (24-48) Monocytes (%) (Auto) 6 % (0-9) Eosinophils (%) (Auto) 1 % (0-3) Basophils (%) (Auto) 1 % (0-3) Neutrophils # (Auto) 3.7 x10^3/uL (1.8-7.7) Lymphocytes # (Auto) 4.6 x10^3/uL (1.0-4.8) Monocytes # (Auto) 0.6 x10^3/uL (0.0-1.1) Eosinophils # (Auto) 0.1 x10^3/uL (0.0-0.7) Basophils # (Auto) 0.0 x10^3/uL (0.0-0.2) Sodium Level 141 mmol/L (136-145) Potassium Level 4.6 mmol/L (3.5-5.1) Chloride Level 109 mmol/L (98-107) Carbon Dioxide Level 22 mmol/L (21-32) Anion Gap 10 (6-14) Blood Urea Nitrogen 17 mg/dL (7-20) Creatinine 1.4 mg/dL (0.6-1.0) Estimated GFR (Cockcroft-Gault) 36.5 BUN/Creatinine Ratio 12 (6-20) Glucose Level 80 mg/dL (70-99) Calcium Level 8.1 mg/dL (8.5-10.1) Total Bilirubin 0.3 mg/dL (0.2-1.0) Aspartate Amino Transf (AST/SGOT) 32 U/L (15-37) Alanine Aminotransferase (ALT/SGPT) 37 U/L (14-59) Alkaline Phosphatase 65 U/L (46-116) Total Protein 6.9 g/dL (6.4-8.2) Albumin 2.8 g/dL (3.4-5.0) Albumin/Globulin Ratio 0.7 (1.0-1.7) Review of Systems Constitutional: yes: weakness, alert Ears/Nose/Throat: Yes: no symptom reported Eyes: Yes: no symptom reported Cardiovascular: Yes no symptom reported Gastrointestional: Yes: no symptom reported Genitourinary: Yes: no symptom reported Musculoskeletal: Yes: muscle stiffness Skin: Yes no symptom reported Psychiatric/Neurological: Yes: no symptom reported Endocrine: Yes: no symptom reported Physical Exam General Appearance: no apparent distress Skin: warm Respiratory: bilateral CTA Heart: S1S2 Abdomen: soft, bowel sounds present Genitourinary: bladder flat Extremities: pulses present Neurology: alert, oriented Musculoskeletal: Osteoarthritis Assessment Assessment IMP HYPERKALEMIA-PROB DUE TO BACTRIM-RESOLVED LEONORA - NEARLY RESOLVED WITH CR OF 1.4 NON AG MET ACIDOSIS-IMPROVED DEHYDRATION SUSPECT SULFA DRUG ALLERGY-CAUSING PRURITUS AND RASH PLAN ENC PO FLUIDS AVOID SULFA DRUGS D/C PLANS NOTED DALLAS CHAUDHRY MD May 08, 2021 11:02
--- NOTE | 2021-05-08 11:05 | PDOC ---
SHANNAN RENAE IMCU NURSE 05/08/21 1105: CARDIO Progress Notes Date and Time Date of Service 05/08/21 Time of Evaluation 1100 Subjective Subjective: No Chest Pain, No shortness of breath, No Palpitations Vitals Vitals Vital Signs Date Time Temp Pulse Resp B/P (MAP) Pulse Ox O2 Delivery O2 Flow Rate FiO2 05/08/21 10:32 99.1 71 18 173/84 (113) 98 Nasal Cannula 99.1 Weight Weight [ ] Input and Output Intake and Output Intake and Output 05/08/21 07:00 Intake Total 2460 ml Balance 2460 ml Intake Oral 460 ml IV Total 2000 ml # Voids 3 Laboratory Labs Laboratory Tests Test 05/07/21 12:00 05/08/21 04:40 Urine Collection Type Unknown Urine Color Straw Urine Clarity Clear Urine pH 6.5 (<5.0-8.0) Urine Specific [place] 1.020 (1.000-1.030) Urine Protein 30 mg/dL (NEG-TRACE) Urine Glucose (UA) Negative mg/dL (NEG) Urine Ketones (Stick) Negative mg/dL (NEG) Urine Blood Negative (NEG) Urine Nitrite Negative (NEG) Urine Bilirubin Negative (NEG) Urine Urobilinogen Dipstick 0.2 mg/dL (0.2 mg/dL) Urine Leukocyte Esterase Negative (NEG) Urine RBC Occ /HPF (0-2) Urine WBC Occ /HPF (0-4) Urine Squamous Epithelial Cells Few /LPF Urine Bacteria 0 /HPF (0-FEW) White Blood Count 9.1 x10^3/uL (4.0-11.0) Red Blood Count 3.12 x10^6/uL (3.50-5.40) Hemoglobin 9.4 g/dL (12.0-15.5) Hematocrit 29.2 % (36.0-47.0) Mean Corpuscular Volume 93 fL (79-100) Mean Corpuscular Hemoglobin 30 pg (25-35) Mean Corpuscular Hemoglobin Concent 32 g/dL (31-37) Red Cell Distribution Width 14.4 % (11.5-14.5) Platelet Count 251 x10^3/uL (140-400) Neutrophils (%) (Auto) 41 % (31-73) Lymphocytes (%) (Auto) 51 % (24-48) Monocytes (%) (Auto) 6 % (0-9) Eosinophils (%) (Auto) 1 % (0-3) Basophils (%) (Auto) 1 % (0-3) Neutrophils # (Auto) 3.7 x10^3/uL (1.8-7.7) Lymphocytes # (Auto) 4.6 x10^3/uL (1.0-4.8) Monocytes # (Auto) 0.6 x10^3/uL (0.0-1.1) Eosinophils # (Auto) 0.1 x10^3/uL (0.0-0.7) Basophils # (Auto) 0.0 x10^3/uL (0.0-0.2) Sodium Level 141 mmol/L (136-145) Potassium Level 4.6 mmol/L (3.5-5.1) Chloride Level 109 mmol/L (98-107) Carbon Dioxide Level 22 mmol/L (21-32) Anion Gap 10 (6-14) Blood Urea Nitrogen 17 mg/dL (7-20) Creatinine 1.4 mg/dL (0.6-1.0) Estimated GFR (Cockcroft-Gault) 36.5 BUN/Creatinine Ratio 12 (6-20) Glucose Level 80 mg/dL (70-99) Calcium Level 8.1 mg/dL (8.5-10.1) Total Bilirubin 0.3 mg/dL (0.2-1.0) Aspartate Amino Transf (AST/SGOT) 32 U/L (15-37) Alanine Aminotransferase (ALT/SGPT) 37 U/L (14-59) Alkaline Phosphatase 65 U/L (46-116) Total Protein 6.9 g/dL (6.4-8.2) Albumin 2.8 g/dL (3.4-5.0) Albumin/Globulin Ratio 0.7 (1.0-1.7) Review of Systems Constitutional: yes: weakness, alert Ears/Nose/Throat: Yes: no symptom reported Eyes: Yes: no symptom reported Cardiovascular: Yes no symptom reported Gastrointestional: Yes: no symptom reported Genitourinary: Yes: no symptom reported Musculoskeletal: Yes: muscle stiffness Skin: Yes no symptom reported Psychiatric/Neurological: Yes: no symptom reported Endocrine: Yes: no symptom reported Physical Exam HEENT: Neck Supple W Full Motion Chest: Symmetric LUNGS: Clear to Auscultation Heart: RRR Abdomen: Soft N/T Extremities: No Edema Neurology: alert, oriented, follow commands Assessment Assessment 1. Hyperkalemia, acute kidney injury, thought to be secondary to combination of being on Bactrim and dehydration. Bactrim and HCTZ stopped. improved. As per Nephrology 2. Accelerated hypertension: now controlled. Continue current medical regimen. 3. Atrial fibrillation: Patient had 1 episode in the setting of uncontrolled hypertension in July 2020 but has not had regular follow-ups. 2D echo at that time showed LVEF 65 to 70%. She is presently in sinus rhythm. Continue aspirin for stroke prophylaxis. Justicifation of Admission Dx: Justifications for Admission: Justification of Admission Dx: No SERENITY GUTIÉRREZ MD 05/08/21 1536: CARDIO Progress Notes Assessment Assessment Patient seen and examined. Agree with QUALITY LEAD's assessment and plan. Blood pressure better controlled. Telemetry did not show any significant arrhythmias. Follow-up as scheduled. SHANNAN RENAE APRN May 08, 2021 11:05 SERENITY GUTIÉRREZ MD May 08, 2021 15:36
--- NOTE | 2021-05-08 11:35 | NUR ---
Discharge Note: MOSES RODRIGUEZ [address] Discharge instructions and discharge home medications reviewed with Patient and a copy given. All questions have been answered and understanding verbalized. The following instructions and handouts were given: acute kidney injury. Patient discharged to home with home health via wheelchair.
== END 2021-05-08 11:35 | disposition home health service (06) | DRG 640 ==
LOC: ER 19:38 → 6 SOUTH 20:53
PROVIDERS: ADMIT Internal Medicine; ATTEND Internal Medicine
DX: E87.5 Hyperkalemia (principal); N17.0 Acute kidney failure with tubular necrosis; I48.91 Unspecified atrial fibrillation; E87.2 Acidosis; B02.9 Zoster without complications; D63.1 Anemia in chronic kidney disease; E78.00 Pure hypercholesterolemia, unspecified; E86.0 Dehydration; J44.9 Chronic obstructive pulmonary disease, unspecified; K21.9 Gastro-esophageal reflux disease without esophagitis; N18.9 Chronic kidney disease, unspecified; Z82.49 Family history of ischemic heart disease and other diseases of the circulatory system; Z87.891 Personal history of nicotine dependence; Z88.1 Allergy status to other antibiotic agents; M19.90 Unspecified osteoarthritis, unspecified site
CPT/HCPCS: 36415; 80048; 80053; 81001; 85025; 93005; 96361; 96374; 96375; J0610; J1200; J1815; J3490; J7030; 99285-25; G0378

== ENCOUNTER 2021-05-26 15:59 | Inpatient (IN) | payer OTHER ==
[~2021-05-26] VITALS: Ht 142.2 cm; Wt 43.0 kg
[~2021-05-26 15:59] MED LIST changes: +SULF1TAB24 PO
--- NOTE | 2021-05-26 17:33 | PHYS DOC ---
Past Medical History Past Medical History: Asthma, GERD, High Cholesterol, Hypertension, Renal Disease Additional Past Medical Histor: CHICKEN POX (TANNER PERDOMO APRN) Past Surgical History: No Surgical History (TANNER PERDOMO APRN) Smoking Status: Former Smoker Alcohol Use: None Drug Use: None (TANNER PERDOMO APRN) General Adult EDM: Chief Complaint: ABNORMAL LABS HPI: HPI: Patient is a 75-year-old female who presents to the emergency department sent in from her primary care provider's office for hyperkalemia. Patient saw her primary care provider today for routine check and they told her that her potassium was high and she needed to go to the emergency department. Patient denies any pain or complaints. She reports that she has a chronic headache. She states that she has a headache every day and there is no change. This is headache is not atypical for her and is not more severe. Patient denies fevers, nausea, vomiting, chest pain, abdominal pain, shortness of breath. patient does have a history of hypertension and renal disease. (TANNER PERDOMO APRN) Review of Systems: Review of Systems: Constitutional: See HPI Respiratory: See HPI Cardiovascular: See HPI GI: See HPI (TANNER PERDOMO APRN) Heart Score: C/O Chest Pain: No Risk Factors: Risk Factors: DM, Current or recent (<one month) smoker, HTN, HLP, family history of CAD, obesity. Risk Scores: Score 0 - 3: 2.5% MACE over next 6 weeks - Discharge Home Score 4 - 6: 20.3% MACE over next 6 weeks - Admit for Clinical Observation Score 7 - 10: 72.7% MACE over next 6 weeks - Early Invasive Strategies (TANNER PERDOMO APRN) Allergies: Allergies: Allergies Coded Allergies Type Severity Reaction Last Updated Verified amlodipine Allergy Intermediate 05/26/21 Yes sulfamethoxazole Adverse Reaction Unknown 05/26/21 Yes trimethoprim Adverse Reaction Unknown 05/26/21 Yes (TANNER PERDOMO APRN) Physical Exam: PE: Constitutional: Well developed, well nourished, no acute distress, non-toxic appearance. [] HENT: Normocephalic, atraumatic, bilateral external ears normal, oropharynx moist, no oral exudates, nose normal. [] Eyes: PERRL, EOMI, conjunctiva normal, no discharge. [] Neck: Normal range of motion, no stridor Cardiovascular:Heart rate regular rhythm, no murmur [] Lungs & Thorax: Bilateral breath sounds clear to auscultation [] Abdomen: Bowel sounds normal, soft, no tenderness, no masses, no pulsatile masses. [] Skin: Warm, dry, no erythema, no rash. [] Back: Full range of motion Extremities: No tenderness, no cyanosis, no clubbing, ROM intact, no edema. [] Neurologic: Alert and oriented X 3, normal motor function, normal sensory function, no focal deficits noted. [] Psychologic: Affect normal, judgement normal, mood normal. [] (TANNER PERDOMO APRN) Current Patient Data: Labs: Laboratory Tests Test 05/26/21 17:10 05/26/21 19:40 05/26/21 21:45 Urine Collection Type Unknown Urine Color (Auto) Light yellow Urine Turbidity Clear Urine pH (Auto) 5.5 Urine Specific [place] 1.009 Urine Protein (Auto) Negative mg/dL Urine Glucose (Auto)(UA) Negative mg/dL Urine Ketones (Auto) Negative mg/dL Urine Blood (Auto) Negative Urine Nitrite Negative Urine Bilirubin (Auto) Negative Urine Urobilinogen (Auto) Normal mg/dL Urine Leukocyte Esterase (Auto) Negative Urine RBC 0 /HPF Urine WBC 0 /HPF Urine Squamous Epithelial Cells Occ /LPF Urine Bacteria 0 /HPF Urine Hyaline Casts Occasional /HPF Urine Mucus Slight /LPF White Blood Count 9.6 x10^3/uL Red Blood Count 2.99 x10^6/uL Hemoglobin 8.9 g/dL Hematocrit 27.0 % Mean Corpuscular Volume 90 fL Mean Corpuscular Hemoglobin 30 pg Mean Corpuscular Hemoglobin Concent 33 g/dL Red Cell Distribution Width 14.2 % Platelet Count 381 x10^3/uL Neutrophils (%) (Auto) 35 % Lymphocytes (%) (Auto) 49 % Monocytes (%) (Auto) 9 % Eosinophils (%) (Auto) 7 % Basophils (%) (Auto) 0 % Neutrophils # (Auto) 3.3 x10^3/uL Lymphocytes # (Auto) 4.7 x10^3/uL Monocytes # (Auto) 0.9 x10^3/uL Eosinophils # (Auto) 0.7 x10^3/uL Basophils # (Auto) 0.0 x10^3/uL Sodium Level 139 mmol/L Potassium Level 5.7 mmol/L Chloride Level 109 mmol/L Carbon Dioxide Level 21 mmol/L Anion Gap 9 Blood Urea Nitrogen 19 mg/dL Creatinine 1.1 mg/dL Estimated GFR (Cockcroft-Gault) 48.2 BUN/Creatinine Ratio 17 Glucose Level 85 mg/dL Calcium Level 8.6 mg/dL Total Bilirubin 0.2 mg/dL Aspartate Amino Transf (AST/SGOT) 30 U/L Alanine Aminotransferase (ALT/SGPT) 32 U/L Alkaline Phosphatase 88 U/L Troponin I High Sensitivity 7 ng/L Total Protein 7.4 g/dL Albumin 3.2 g/dL Albumin/Globulin Ratio 0.8 Vital Signs: Vital Signs Date Time Temp Pulse Resp B/P (MAP) Pulse Ox O2 Delivery O2 Flow Rate FiO2 05/26/21 17:13 98.2 63 24 137/66 (89) 100 Room Air 98.2 (TANNER PERDOMO APRN) EKG: EKG: KG performed by ER staff at 1814 shows sinus rhythm with a rate of 60, QTc of 420 no STEMI read by Dr. Henry at 1816 [] (TANNER PERDOMO APRN) Radiology/Procedures: Radiology/Procedures: [] (TANNER PERDOMO APRN) Course & Med Decision Making: Course & Med Decision Making Pertinent Labs and Imaging studies reviewed. (See chart for details) [] Patient presents to the emergency department for hyperkalemia that was seen on her lab work obtained by her primary care provider prior to arrival. Patient has no complaints at this time. Work-up in the ER consisted of blood work, EKG. EKG is sinus rhythm. Patient's hemoglobin is 8.9, it appears that patient does have a history of anemia based on previous lab levels. Patient's creatinine was 1.1. Patient has a history of chronic kidney disease. Potassium 5.7. Discussed these findings with supervising physician who advised giving hyperkalemic medications. Patient was treated with calcium, insulin, glucose, bicarb and Lasix. Patient was given some IV fluids. Discussed these findings with patient's family member and they are agreeable to care plan. Patient will be admitted to hospitalist, Dr. Hammond. ER bridge orders placed at this time 365. (TANNER PERDOMO APRN) Course & Med Decision Making Patients Care and treatment plan provided by ER Nurse Practitioner. I was available for consult. Patient's chart reviewed. (JHON HENRY DO) Haley Disclaimer: Haley Disclaimer: This electronic medical record was generated, in whole or in part, using a voice recognition dictation system. (TANNER PERDOMO APRN) Departure Departure Impression: Primary Impression: Hyperkalemia Disposition: ADMITTED INPATIENT Admitting Physician: NAOMIE (TANNER PERDOMO APRN) Condition: STABLE Referrals: UNKNOWN PCP NAME (PCP) Scripts Furosemide (LASIX) 20 Mg Tablet 1 TAB PO DAILYWLUN for htn for 30 Days, #30 TAB 2 Refills Prov: IRENA SOUSA MD 05/27/21 Ferrous Sulfate (FERROUS SULFATE) 325 Mg Tablet 1 TAB PO QODAY for iron deficiency, #30 TAB 3 Refills Prov: IRENA SOUSA MD 05/27/21 TANNER PERDOMO APRN May 26, 2021 17:32 JHON HENRY DO Jun 01, 2021 18:42
[2021-05-26 17:50] LABS: BACTERIA,URINE 0 /HPF (0-FEW); HYALINE CASTS, URINE OCCASIONAL /HPF; RBC,URINE 0 /HPF (0-2); WBC,URINE 0 /HPF (0-4)
[2021-05-26 19:53] LABS: BASO % 0 % (0-3); EOS # 0.7 x10^3/uL (0.0-0.7); EOS % 7 % (0-3); HEMOGLOBIN 8.9 g/dL (12.0-15.5); LYMPH # 4.7 x10^3/uL (1.0-4.8); LYMPH % 49 % (24-48); MEAN CORPUSCULAR HEMOGLOBIN 30 pg (25-35); MEAN CORPUSCULAR HGB CONC 33 g/dL (31-37); MEAN CORPUSCULAR VOLUME 90 fL (79-100); MONO # 0.9 x10^3/uL (0.0-1.1); MONO % 9 % (0-9); NEUT # 3.3 x10^3/uL (1.8-7.7); NEUT % 35 % (31-73); PLATELET COUNT 381 x10^3/uL (140-400); RED BLOOD COUNT 2.99 x10^6/uL (3.50-5.40); RED CELL DISTRIBUTION WIDTH 14.2 % (11.5-14.5); WHITE BLOOD COUNT 9.6 x10^3/uL (4.0-11.0)
[2021-05-26 22:07] LABS: CALCIUM 8.6 mg/dL (8.5-10.1); CREATININE 1.1 mg/dL (0.6-1.0); GFR 48.2; POTASSIUM 5.7 mmol/L (3.5-5.1)
[2021-05-26 22:14] LABS: ALBUMIN 3.2 g/dL (3.4-5.0); ALBUMIN/GLOBULIN RATIO 0.8 (1.0-1.7); TOTAL BILIRUBIN 0.2 mg/dL (0.2-1.0); TOTAL PROTEIN 7.4 g/dL (6.4-8.2)
--- NOTE | 2021-05-26 22:40 | EKG ---
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
[2021-05-26] MEDS ORDERED: DEXTROSE 50% 25 GM / 50ML DISP.SYRIN. IV ONE (22:45)
[2021-05-26] MEDS ORDERED: FUROSEMIDE 40 MG/4 ML VIAL. IVP ONE (23:00)
[2021-05-26] MEDS ORDERED: INSULIN REGULAR 100 UNIT/ML 3ML VIAL. IV ONE (23:00)
[2021-05-26] MEDS ORDERED: IV RINGERS,LACTATED 1000ML 1,000 ML IV ONE (23:00)
[2021-05-26] MEDS ORDERED: CALCIUM GLUCONATE 1,000 MG/10 ML VIAL. IVP ONE (23:00)
[2021-05-26] MEDS ORDERED: IV DEXTROSE 5% 250 ML IV ONE (23:00)
[2021-05-26] MEDS ORDERED: SODIUM BICARB ADULT 8.4% 50 MEQ/50 ML DISP.SYRIN. IV ONE (23:00)
[2021-05-27 01:30] VITALS: BP 121/68
[2021-05-27 03:00] VITALS: BP 131/74
[2021-05-27 07:00] VITALS: BP 117/70
[2021-05-27 07:48] LABS: BASO % 0 % (0-3); EOS # 0.5 x10^3/uL (0.0-0.7); EOS % 5 % (0-3); HEMATOCRIT 30.5 % (36.0-47.0); HEMOGLOBIN 9.7 g/dL (12.0-15.5); LYMPH # 3.2 x10^3/uL (1.0-4.8); LYMPH % 38 % (24-48); MEAN CORPUSCULAR HEMOGLOBIN 29 pg (25-35); MEAN CORPUSCULAR HGB CONC 32 g/dL (31-37); MEAN CORPUSCULAR VOLUME 89 fL (79-100); MONO # 0.8 x10^3/uL (0.0-1.1); MONO % 9 % (0-9); NEUT % 48 % (31-73); PLATELET COUNT 389 x10^3/uL (140-400); RED BLOOD COUNT 3.42 x10^6/uL (3.50-5.40); WHITE BLOOD COUNT 8.4 x10^3/uL (4.0-11.0)
[2021-05-27 08:03] LABS: ALBUMIN 3.4 g/dL (3.4-5.0); ALBUMIN/GLOBULIN RATIO 0.7 (1.0-1.7); CALCIUM 9.8 mg/dL (8.5-10.1); CREATININE 1.1 mg/dL (0.6-1.0); GFR 48.2; POTASSIUM 4.8 mmol/L (3.5-5.1); TOTAL BILIRUBIN 0.2 mg/dL (0.2-1.0); TOTAL PROTEIN 8.5 g/dL (6.4-8.2)
--- NOTE | 2021-05-27 09:21 | PDOC1 ---
History and Physical Date of Service: DOS: DATE: 05/27/21 TIME: 09:14 Chief Complaint: Chief Complain: Abnormal labs History of Present Illness: HPI: 75-year-old female who presents to the emergency department sent in from her primary care provider's office for hyperkalemia. Patient saw her primary care provider today for routine check and they told her that her potassium was high and she needed to go to the emergency department. Patient denies any pain or complaints. She reports that she has a chronic headache. She states that she has a headache every day and there is no change. This is headache is not atypical for her and is not more severe. Patient denies fevers, nausea, vomiting, chest pain, abdominal pain, shortness of breath. patient does have a history of hypertension and renal disease. Past Medical/Surgical History: PMH/PSH: Past Medical History: Asthma, GERD, High Cholesterol, Hypertension, Renal Disease, CHICKEN POX Past Surgical History: No Surgical History Allergies: Allergies: Coded Allergies: amlodipine (Verified Allergy, Intermediate, 05/26/21) sulfamethoxazole (Verified Adverse Reaction, Intermediate, 05/26/21) Hyperkalemia trimethoprim (Verified Adverse Reaction, Intermediate, 05/26/21) Hyperkalemia Family History: Family History: Reviewed with no relative findings in the chart Social History: Social History: Smoking Status: Former Smoker Alcohol Use: None Drug Use: None Current Medications: Current Medications Current Medications Calcium Gluconate (Calcium Gluconate) 1,000 mg 1X ONCE IVP Last administered on 05/26/21at 23:16; Start 05/26/21 at 23:00; Stop 05/26/21 at 23:01; Status DC Insulin Human Regular (HumuLIN R VIAL) 10 unit 1X ONCE IV Last administered on 05/26/21at 23:39; Start 05/26/21 at 23:00; Stop 05/26/21 at 23:01; Status DC Dextrose (Dextrose 50%-Water Syringe) 25 gm 1X ONCE IV ; Start 05/26/21 at 22:45; Stop 05/26/21 at 22:46; Status UNV Sodium Bicarbonate (Sodium Bicarb Adult 8.4% Syr) 50 meq 1X ONCE IV Last administered on 05/26/21at 23:24; Start 05/26/21 at 23:00; Stop 05/26/21 at 23:01; Status DC Furosemide (Lasix) 40 mg 1X ONCE IVP Last administered on 05/27/21at 00:24; Start 05/26/21 at 23:00; Stop 05/26/21 at 23:01; Status DC Ringer's Solution 1,000 ml @ 75 mls/hr 1X ONCE IV Last administered on 05/27/21at 00:27; Start 05/26/21 at 23:00; Stop 05/27/21 at 12:19 Dextrose 250 ml @ 500 mls/hr 1X ONCE IV Last administered on 05/26/21at 23:42; Start 05/26/21 at 23:00; Stop 05/26/21 at 23:29; Status DC Active Scripts Active Lidocaine-Prilocaine Cream (Lidocaine/Prilocaine) 30 Gm Cream..g. 1 Deloris TP UD Miralax (Polyethylene Glycol 3350) 119 Gm Powder 17 Gm PO BID 5 Days Drink 1 capful in 8 oz of water twice daily for 5 days then once a day to keep stools regular Aspirin Ec (Aspirin) 81 Mg Tablet. 81 Mg PO DAILYWBKFT 30 Days Clonidine Hcl 0.1 Mg Tablet 0.1 Mg PO BID Reported Hydrochlorothiazide Tablet (Hydrochlorothiazide) 25 Mg Tablet 25 Mg PO DAILY Metoprolol Succinate ( Xl ) (Metoprolol Succinate) 100 Mg Tab.er.24h 100 Mg PO DAILY Omeprazole 40 Mg Capsule. 1 Cap PO DAILY ROS: Review of Systems Review of System REVIEW OF SYSTEMS: GENERAL: Denies weakness SKIN: No bruising, hair changes or rashes. EYES: No blurred, double or loss of vision. NOSE AND THROAT: No history of nosebleeds, hoarseness or sore throat. HEART: No history of palpitations, chest pain or shortness of breath on exertion. LUNGS: Denies cough, hemoptysis, wheezing or shortness of breath. GASTROINTESTINAL: Denies changes in appetite, nausea, vomiting, diarrhea or constipation. GENITOURINARY: No history of frequency, urgency, hesitancy or nocturia. NEUROLOGIC: Denies history of numbness, tingling, or tremor. PSYCHIATRIC: No history of panic, anxiety or depression. ENDOCRINE: No history of heat or cold intolerance, polyuria or polydipsia. EXTREMITIES: Denies joint pain, pain on walking or stiffness. Physical Exam: Vital Signs: Vital Signs Date Time Temp Pulse Resp B/P (MAP) Pulse Ox O2 Delivery O2 Flow Rate FiO2 05/27/21 07:00 98.7 68 18 117/70 (86) 100 Room Air 98.7 Physcial Exam: GEN: No apparent distress. Alert and oriented HEENT: Normal cephalic, atraumatic, external auditory canals are patent EYES: Extraocular muscles are intact, pupil are equally round and reactive to light and accommodation MUSCULOSKELETAL: Well developed , well nourished, good range of motion ENDOCRINE: No thyromegaly was palpated LYMPHATICS: No cervical chain or axillary nodes were noted HEMATOPOIETIC: No bruising NECK: Supple, no JVD, no thyromegaly was noted LUNGS: Clear to auscultation in all lung abdalla without rhonchi or wheezing HEART: RRR, S!, S2 present. Peripheral pulses intact, no obvious murmurs noted ABDOMEN: Soft, nontender. Positive bowel sounds, no organomegaly, normal bowel sounds EXTREMITIES: Without clubbing, cyanosis, or edema. Pedal pulses intact. Negative Homans sign NEUROLOGIC: Normal speech and tone. A&O x 3, moves all extremities, no obvious focal deficits PSYCHIATRIC: Normal affect, normal mood. Stable SKIN: No ulcerations or rashes, good skin turgor, no jaundice VASCULAR: Good capillary refill, neurovascular bundle appears to be intact Labs: Labs: Laboratory Tests Test 05/26/21 17:10 05/26/21 19:40 05/26/21 21:45 05/26/21 23:56 Urine Collection Type Unknown Urine Color (Auto) Light yellow Urine Turbidity Clear Urine pH (Auto) 5.5 (<5.0-8.0) Urine Specific Lyons 1.009 (1.000-1.030) Urine Protein (Auto) Negative mg/dL (Negative) Urine Glucose (Auto)(UA) Negative mg/dL (Negative) Urine Ketones (Auto) Negative mg/dL (Negative) Urine Blood (Auto) Negative (Negative) Urine Nitrite Negative (Negative) Urine Bilirubin (Auto) Negative (Negative) Urine Urobilinogen (Auto) Normal mg/dL (Normal) Urine Leukocyte Esterase (Auto) Negative (Negative) Urine RBC 0 /HPF (0-2) Urine WBC 0 /HPF (0-4) Urine Squamous Epithelial Cells Occ /LPF Urine Bacteria 0 /HPF (0-FEW) Urine Hyaline Casts Occasional /HPF Urine Mucus Slight /LPF White Blood Count 9.6 x10^3/uL (4.0-11.0) Red Blood Count 2.99 x10^6/uL (3.50-5.40) Hemoglobin 8.9 g/dL (12.0-15.5) Hematocrit 27.0 % (36.0-47.0) Mean Corpuscular Volume 90 fL (79-100) Mean Corpuscular Hemoglobin 30 pg (25-35) Mean Corpuscular Hemoglobin Concent 33 g/dL (31-37) Red Cell Distribution Width 14.2 % (11.5-14.5) Platelet Count 381 x10^3/uL (140-400) Neutrophils (%) (Auto) 35 % (31-73) Lymphocytes (%) (Auto) 49 % (24-48) Monocytes (%) (Auto) 9 % (0-9) Eosinophils (%) (Auto) 7 % (0-3) Basophils (%) (Auto) 0 % (0-3) Neutrophils # (Auto) 3.3 x10^3/uL (1.8-7.7) Lymphocytes # (Auto) 4.7 x10^3/uL (1.0-4.8) Monocytes # (Auto) 0.9 x10^3/uL (0.0-1.1) Eosinophils # (Auto) 0.7 x10^3/uL (0.0-0.7) Basophils # (Auto) 0.0 x10^3/uL (0.0-0.2) Sodium Level 139 mmol/L (136-145) Potassium Level 5.7 mmol/L (3.5-5.1) Chloride Level 109 mmol/L (98-107) Carbon Dioxide Level 21 mmol/L (21-32) Anion Gap 9 (6-14) Blood Urea Nitrogen 19 mg/dL (7-20) Creatinine 1.1 mg/dL (0.6-1.0) Estimated GFR (Cockcroft-Gault) 48.2 BUN/Creatinine Ratio 17 (6-20) Glucose Level 85 mg/dL (70-99) Calcium Level 8.6 mg/dL (8.5-10.1) Total Bilirubin 0.2 mg/dL (0.2-1.0) Aspartate Amino Transf (AST/SGOT) 30 U/L (15-37) Alanine Aminotransferase (ALT/SGPT) 32 U/L (14-59) Alkaline Phosphatase 88 U/L (46-116) Troponin I High Sensitivity 7 ng/L (4-50) Total Protein 7.4 g/dL (6.4-8.2) Albumin 3.2 g/dL (3.4-5.0) Albumin/Globulin Ratio 0.8 (1.0-1.7) Glucose (Fingerstick) 119 mg/dL (70-99) Test 05/27/21 07:25 White Blood Count 8.4 x10^3/uL (4.0-11.0) Red Blood Count 3.42 x10^6/uL (3.50-5.40) Hemoglobin 9.7 g/dL (12.0-15.5) Hematocrit 30.5 % (36.0-47.0) Mean Corpuscular Volume 89 fL (79-100) Mean Corpuscular Hemoglobin 29 pg (25-35) Mean Corpuscular Hemoglobin Concent 32 g/dL (31-37) Red Cell Distribution Width 14.0 % (11.5-14.5) Platelet Count 389 x10^3/uL (140-400) Neutrophils (%) (Auto) 48 % (31-73) Lymphocytes (%) (Auto) 38 % (24-48) Monocytes (%) (Auto) 9 % (0-9) Eosinophils (%) (Auto) 5 % (0-3) Basophils (%) (Auto) 0 % (0-3) Neutrophils # (Auto) 4.0 x10^3/uL (1.8-7.7) Lymphocytes # (Auto) 3.2 x10^3/uL (1.0-4.8) Monocytes # (Auto) 0.8 x10^3/uL (0.0-1.1) Eosinophils # (Auto) 0.5 x10^3/uL (0.0-0.7) Basophils # (Auto) 0.0 x10^3/uL (0.0-0.2) Sodium Level 137 mmol/L (136-145) Potassium Level 4.8 mmol/L (3.5-5.1) Chloride Level 103 mmol/L (98-107) Carbon Dioxide Level 25 mmol/L (21-32) Anion Gap 9 (6-14) Blood Urea Nitrogen 20 mg/dL (7-20) Creatinine 1.1 mg/dL (0.6-1.0) Estimated GFR (Cockcroft-Gault) 48.2 BUN/Creatinine Ratio 18 (6-20) Glucose Level 94 mg/dL (70-99) Calcium Level 9.8 mg/dL (8.5-10.1) Total Bilirubin 0.2 mg/dL (0.2-1.0) Aspartate Amino Transf (AST/SGOT) 37 U/L (15-37) Alanine Aminotransferase (ALT/SGPT) 29 U/L (14-59) Alkaline Phosphatase 94 U/L (46-116) Total Protein 8.5 g/dL (6.4-8.2) Albumin 3.4 g/dL (3.4-5.0) Albumin/Globulin Ratio 0.7 (1.0-1.7) Laboratory Tests Test 05/26/21 17:10 05/26/21 19:40 05/26/21 21:45 05/26/21 23:56 Urine Collection Type Unknown Urine Color (Auto) Light yellow Urine Turbidity Clear Urine pH (Auto) 5.5 (<5.0-8.0) Urine Specific Lyons 1.009 (1.000-1.030) Urine Protein (Auto) Negative mg/dL (Negative) Urine Glucose (Auto)(UA) Negative mg/dL (Negative) Urine Ketones (Auto) Negative mg/dL (Negative) Urine Blood (Auto) Negative (Negative) Urine Nitrite Negative (Negative) Urine Bilirubin (Auto) Negative (Negative) Urine Urobilinogen (Auto) Normal mg/dL (Normal) Urine Leukocyte Esterase (Auto) Negative (Negative) Urine RBC 0 /HPF (0-2) Urine WBC 0 /HPF (0-4) Urine Squamous Epithelial Cells Occ /LPF Urine Bacteria 0 /HPF (0-FEW) Urine Hyaline Casts Occasional /HPF Urine Mucus Slight /LPF White Blood Count 9.6 x10^3/uL (4.0-11.0) Red Blood Count 2.99 x10^6/uL (3.50-5.40) Hemoglobin 8.9 g/dL (12.0-15.5) Hematocrit 27.0 % (36.0-47.0) Mean Corpuscular Volume 90 fL (79-100) Mean Corpuscular Hemoglobin 30 pg (25-35) Mean Corpuscular Hemoglobin Concent 33 g/dL (31-37) Red Cell Distribution Width 14.2 % (11.5-14.5) Platelet Count 381 x10^3/uL (140-400) Neutrophils (%) (Auto) 35 % (31-73) Lymphocytes (%) (Auto) 49 % (24-48) Monocytes (%) (Auto) 9 % (0-9) Eosinophils (%) (Auto) 7 % (0-3) Basophils (%) (Auto) 0 % (0-3) Neutrophils # (Auto) 3.3 x10^3/uL (1.8-7.7) Lymphocytes # (Auto) 4.7 x10^3/uL (1.0-4.8) Monocytes # (Auto) 0.9 x10^3/uL (0.0-1.1) Eosinophils # (Auto) 0.7 x10^3/uL (0.0-0.7) Basophils # (Auto) 0.0 x10^3/uL (0.0-0.2) Sodium Level 139 mmol/L (136-145) Potassium Level 5.7 mmol/L (3.5-5.1) Chloride Level 109 mmol/L (98-107) Carbon Dioxide Level 21 mmol/L (21-32) Anion Gap 9 (6-14) Blood Urea Nitrogen 19 mg/dL (7-20) Creatinine 1.1 mg/dL (0.6-1.0) Estimated GFR (Cockcroft-Gault) 48.2 BUN/Creatinine Ratio 17 (6-20) Glucose Level 85 mg/dL (70-99) Calcium Level 8.6 mg/dL (8.5-10.1) Total Bilirubin 0.2 mg/dL (0.2-1.0) Aspartate Amino Transf (AST/SGOT) 30 U/L (15-37) Alanine Aminotransferase (ALT/SGPT) 32 U/L (14-59) Alkaline Phosphatase 88 U/L (46-116) Troponin I High Sensitivity 7 ng/L (4-50) Total Protein 7.4 g/dL (6.4-8.2) Albumin 3.2 g/dL (3.4-5.0) Albumin/Globulin Ratio 0.8 (1.0-1.7) Glucose (Fingerstick) 119 mg/dL (70-99) Test 05/27/21 07:25 White Blood Count 8.4 x10^3/uL (4.0-11.0) Red Blood Count 3.42 x10^6/uL (3.50-5.40) Hemoglobin 9.7 g/dL (12.0-15.5) Hematocrit 30.5 % (36.0-47.0) Mean Corpuscular Volume 89 fL (79-100) Mean Corpuscular Hemoglobin 29 pg (25-35) Mean Corpuscular Hemoglobin Concent 32 g/dL (31-37) Red Cell Distribution Width 14.0 % (11.5-14.5) Platelet Count 389 x10^3/uL (140-400) Neutrophils (%) (Auto) 48 % (31-73) Lymphocytes (%) (Auto) 38 % (24-48) Monocytes (%) (Auto) 9 % (0-9) Eosinophils (%) (Auto) 5 % (0-3) Basophils (%) (Auto) 0 % (0-3) Neutrophils # (Auto) 4.0 x10^3/uL (1.8-7.7) Lymphocytes # (Auto) 3.2 x10^3/uL (1.0-4.8) Monocytes # (Auto) 0.8 x10^3/uL (0.0-1.1) Eosinophils # (Auto) 0.5 x10^3/uL (0.0-0.7) Basophils # (Auto) 0.0 x10^3/uL (0.0-0.2) Sodium Level 137 mmol/L (136-145) Potassium Level 4.8 mmol/L (3.5-5.1) Chloride Level 103 mmol/L (98-107) Carbon Dioxide Level 25 mmol/L (21-32) Anion Gap 9 (6-14) Blood Urea Nitrogen 20 mg/dL (7-20) Creatinine 1.1 mg/dL (0.6-1.0) Estimated GFR (Cockcroft-Gault) 48.2 BUN/Creatinine Ratio 18 (6-20) Glucose Level 94 mg/dL (70-99) Calcium Level 9.8 mg/dL (8.5-10.1) Total Bilirubin 0.2 mg/dL (0.2-1.0) Aspartate Amino Transf (AST/SGOT) 37 U/L (15-37) Alanine Aminotransferase (ALT/SGPT) 29 U/L (14-59) Alkaline Phosphatase 94 U/L (46-116) Total Protein 8.5 g/dL (6.4-8.2) Albumin 3.4 g/dL (3.4-5.0) Albumin/Globulin Ratio 0.7 (1.0-1.7) Images: Images No recent images to review Assessment/Plan Assessment/Plan Moderate hyperkalemia Chronic headaches History of hypertension History of dyslipidemia History of GERD History of chronic kidney disease History of asthma Admit to hospitalist for further management Hold HCTZ Blood pressures are well controlled Resume metoprolol Start Lasix SCD and ambulation for DVT prophylaxis Renal/cardiac diet CODE STATUS full Discussed with RN and SW Disposition inpatient management as above DPOA: Son Patient potassium resolved overnight with calcium gluconate, insulin and glucose shift and Lasix. Blood pressures are well controlled. Will need to follow-up with Dr. Mi next week. Patient stable for discharge. Justifications for Admission Other Justification Weakness, hypertensive urgency IRENA SOUSA MD May 27, 2021 09:21
--- NOTE | 2021-05-27 10:00 | PDOC ---
PROGRESS NOTES Date of Service DATE: 05/27/21 TIME: 09:59 Subjective Subjective Consult initially called for potassium 5.7. This has resolved this morning. Discussed with primary attending physician who would like outpatient follow-up given current levels of GFR. This will be arranged for her as an outpatient. Inpatient consult was cancelled by requesting physician Objective Objective Vital Signs Date Time Temp Pulse Resp B/P (MAP) Pulse Ox O2 Delivery O2 Flow Rate FiO2 05/27/21 08:00 Room Air 05/27/21 07:00 98.7 68 18 117/70 (86) 100 98.7 Intake and Output 05/27/21 07:00 # Voids 1 Assessment Assessment Problems Medical Problems: (1) Hyperkalemia Status: Acute Comment Review of Relevant I have reviewed the following items ann (where applicable) has been applied. Labs Laboratory Tests Test 05/26/21 17:10 05/26/21 19:40 05/26/21 21:45 05/26/21 23:56 Urine Collection Type Unknown Urine Color (Auto) Light yellow Urine Turbidity Clear Urine pH (Auto) 5.5 (<5.0-8.0) Urine Specific [place] 1.009 (1.000-1.030) Urine Protein (Auto) Negative mg/dL (Negative) Urine Glucose (Auto)(UA) Negative mg/dL (Negative) Urine Ketones (Auto) Negative mg/dL (Negative) Urine Blood (Auto) Negative (Negative) Urine Nitrite Negative (Negative) Urine Bilirubin (Auto) Negative (Negative) Urine Urobilinogen (Auto) Normal mg/dL (Normal) Urine Leukocyte Esterase (Auto) Negative (Negative) Urine RBC 0 /HPF (0-2) Urine WBC 0 /HPF (0-4) Urine Squamous Epithelial Cells Occ /LPF Urine Bacteria 0 /HPF (0-FEW) Urine Hyaline Casts Occasional /HPF Urine Mucus Slight /LPF White Blood Count 9.6 x10^3/uL (4.0-11.0) Red Blood Count 2.99 x10^6/uL (3.50-5.40) Hemoglobin 8.9 g/dL (12.0-15.5) Hematocrit 27.0 % (36.0-47.0) Mean Corpuscular Volume 90 fL (79-100) Mean Corpuscular Hemoglobin 30 pg (25-35) Mean Corpuscular Hemoglobin Concent 33 g/dL (31-37) Red Cell Distribution Width 14.2 % (11.5-14.5) Platelet Count 381 x10^3/uL (140-400) Neutrophils (%) (Auto) 35 % (31-73) Lymphocytes (%) (Auto) 49 % (24-48) Monocytes (%) (Auto) 9 % (0-9) Eosinophils (%) (Auto) 7 % (0-3) Basophils (%) (Auto) 0 % (0-3) Neutrophils # (Auto) 3.3 x10^3/uL (1.8-7.7) Lymphocytes # (Auto) 4.7 x10^3/uL (1.0-4.8) Monocytes # (Auto) 0.9 x10^3/uL (0.0-1.1) Eosinophils # (Auto) 0.7 x10^3/uL (0.0-0.7) Basophils # (Auto) 0.0 x10^3/uL (0.0-0.2) Sodium Level 139 mmol/L (136-145) Potassium Level 5.7 mmol/L (3.5-5.1) Chloride Level 109 mmol/L (98-107) Carbon Dioxide Level 21 mmol/L (21-32) Anion Gap 9 (6-14) Blood Urea Nitrogen 19 mg/dL (7-20) Creatinine 1.1 mg/dL (0.6-1.0) Estimated GFR (Cockcroft-Gault) 48.2 BUN/Creatinine Ratio 17 (6-20) Glucose Level 85 mg/dL (70-99) Calcium Level 8.6 mg/dL (8.5-10.1) Total Bilirubin 0.2 mg/dL (0.2-1.0) Aspartate Amino Transf (AST/SGOT) 30 U/L (15-37) Alanine Aminotransferase (ALT/SGPT) 32 U/L (14-59) Alkaline Phosphatase 88 U/L (46-116) Troponin I High Sensitivity 7 ng/L (4-50) Total Protein 7.4 g/dL (6.4-8.2) Albumin 3.2 g/dL (3.4-5.0) Albumin/Globulin Ratio 0.8 (1.0-1.7) Glucose (Fingerstick) 119 mg/dL (70-99) Test 05/27/21 07:25 White Blood Count 8.4 x10^3/uL (4.0-11.0) Red Blood Count 3.42 x10^6/uL (3.50-5.40) Hemoglobin 9.7 g/dL (12.0-15.5) Hematocrit 30.5 % (36.0-47.0) Mean Corpuscular Volume 89 fL (79-100) Mean Corpuscular Hemoglobin 29 pg (25-35) Mean Corpuscular Hemoglobin Concent 32 g/dL (31-37) Red Cell Distribution Width 14.0 % (11.5-14.5) Platelet Count 389 x10^3/uL (140-400) Neutrophils (%) (Auto) 48 % (31-73) Lymphocytes (%) (Auto) 38 % (24-48) Monocytes (%) (Auto) 9 % (0-9) Eosinophils (%) (Auto) 5 % (0-3) Basophils (%) (Auto) 0 % (0-3) Neutrophils # (Auto) 4.0 x10^3/uL (1.8-7.7) Lymphocytes # (Auto) 3.2 x10^3/uL (1.0-4.8) Monocytes # (Auto) 0.8 x10^3/uL (0.0-1.1) Eosinophils # (Auto) 0.5 x10^3/uL (0.0-0.7) Basophils # (Auto) 0.0 x10^3/uL (0.0-0.2) Sodium Level 137 mmol/L (136-145) Potassium Level 4.8 mmol/L (3.5-5.1) Chloride Level 103 mmol/L (98-107) Carbon Dioxide Level 25 mmol/L (21-32) Anion Gap 9 (6-14) Blood Urea Nitrogen 20 mg/dL (7-20) Creatinine 1.1 mg/dL (0.6-1.0) Estimated GFR (Cockcroft-Gault) 48.2 BUN/Creatinine Ratio 18 (6-20) Glucose Level 94 mg/dL (70-99) Calcium Level 9.8 mg/dL (8.5-10.1) Total Bilirubin 0.2 mg/dL (0.2-1.0) Aspartate Amino Transf (AST/SGOT) 37 U/L (15-37) Alanine Aminotransferase (ALT/SGPT) 29 U/L (14-59) Alkaline Phosphatase 94 U/L (46-116) Total Protein 8.5 g/dL (6.4-8.2) Albumin 3.4 g/dL (3.4-5.0) Albumin/Globulin Ratio 0.7 (1.0-1.7) Laboratory Tests Test 05/26/21 17:10 05/26/21 19:40 05/26/21 21:45 05/26/21 23:56 Urine Collection Type Unknown Urine Color (Auto) Light yellow Urine Turbidity Clear Urine pH (Auto) 5.5 (<5.0-8.0) Urine Specific [place] 1.009 (1.000-1.030) Urine Protein (Auto) Negative mg/dL (Negative) Urine Glucose (Auto)(UA) Negative mg/dL (Negative) Urine Ketones (Auto) Negative mg/dL (Negative) Urine Blood (Auto) Negative (Negative) Urine Nitrite Negative (Negative) Urine Bilirubin (Auto) Negative (Negative) Urine Urobilinogen (Auto) Normal mg/dL (Normal) Urine Leukocyte Esterase (Auto) Negative (Negative) Urine RBC 0 /HPF (0-2) Urine WBC 0 /HPF (0-4) Urine Squamous Epithelial Cells Occ /LPF Urine Bacteria 0 /HPF (0-FEW) Urine Hyaline Casts Occasional /HPF Urine Mucus Slight /LPF White Blood Count 9.6 x10^3/uL (4.0-11.0) Red Blood Count 2.99 x10^6/uL (3.50-5.40) Hemoglobin 8.9 g/dL (12.0-15.5) Hematocrit 27.0 % (36.0-47.0) Mean Corpuscular Volume 90 fL (79-100) Mean Corpuscular Hemoglobin 30 pg (25-35) Mean Corpuscular Hemoglobin Concent 33 g/dL (31-37) Red Cell Distribution Width 14.2 % (11.5-14.5) Platelet Count 381 x10^3/uL (140-400) Neutrophils (%) (Auto) 35 % (31-73) Lymphocytes (%) (Auto) 49 % (24-48) Monocytes (%) (Auto) 9 % (0-9) Eosinophils (%) (Auto) 7 % (0-3) Basophils (%) (Auto) 0 % (0-3) Neutrophils # (Auto) 3.3 x10^3/uL (1.8-7.7) Lymphocytes # (Auto) 4.7 x10^3/uL (1.0-4.8) Monocytes # (Auto) 0.9 x10^3/uL (0.0-1.1) Eosinophils # (Auto) 0.7 x10^3/uL (0.0-0.7) Basophils # (Auto) 0.0 x10^3/uL (0.0-0.2) Sodium Level 139 mmol/L (136-145) Potassium Level 5.7 mmol/L (3.5-5.1) Chloride Level 109 mmol/L (98-107) Carbon Dioxide Level 21 mmol/L (21-32) Anion Gap 9 (6-14) Blood Urea Nitrogen 19 mg/dL (7-20) Creatinine 1.1 mg/dL (0.6-1.0) Estimated GFR (Cockcroft-Gault) 48.2 BUN/Creatinine Ratio 17 (6-20) Glucose Level 85 mg/dL (70-99) Calcium Level 8.6 mg/dL (8.5-10.1) Total Bilirubin 0.2 mg/dL (0.2-1.0) Aspartate Amino Transf (AST/SGOT) 30 U/L (15-37) Alanine Aminotransferase (ALT/SGPT) 32 U/L (14-59) Alkaline Phosphatase 88 U/L (46-116) Troponin I High Sensitivity 7 ng/L (4-50) Total Protein 7.4 g/dL (6.4-8.2) Albumin 3.2 g/dL (3.4-5.0) Albumin/Globulin Ratio 0.8 (1.0-1.7) Glucose (Fingerstick) 119 mg/dL (70-99) Test 05/27/21 07:25 White Blood Count 8.4 x10^3/uL (4.0-11.0) Red Blood Count 3.42 x10^6/uL (3.50-5.40) Hemoglobin 9.7 g/dL (12.0-15.5) Hematocrit 30.5 % (36.0-47.0) Mean Corpuscular Volume 89 fL (79-100) Mean Corpuscular Hemoglobin 29 pg (25-35) Mean Corpuscular Hemoglobin Concent 32 g/dL (31-37) Red Cell Distribution Width 14.0 % (11.5-14.5) Platelet Count 389 x10^3/uL (140-400) Neutrophils (%) (Auto) 48 % (31-73) Lymphocytes (%) (Auto) 38 % (24-48) Monocytes (%) (Auto) 9 % (0-9) Eosinophils (%) (Auto) 5 % (0-3) Basophils (%) (Auto) 0 % (0-3) Neutrophils # (Auto) 4.0 x10^3/uL (1.8-7.7) Lymphocytes # (Auto) 3.2 x10^3/uL (1.0-4.8) Monocytes # (Auto) 0.8 x10^3/uL (0.0-1.1) Eosinophils # (Auto) 0.5 x10^3/uL (0.0-0.7) Basophils # (Auto) 0.0 x10^3/uL (0.0-0.2) Sodium Level 137 mmol/L (136-145) Potassium Level 4.8 mmol/L (3.5-5.1) Chloride Level 103 mmol/L (98-107) Carbon Dioxide Level 25 mmol/L (21-32) Anion Gap 9 (6-14) Blood Urea Nitrogen 20 mg/dL (7-20) Creatinine 1.1 mg/dL (0.6-1.0) Estimated GFR (Cockcroft-Gault) 48.2 BUN/Creatinine Ratio 18 (6-20) Glucose Level 94 mg/dL (70-99) Calcium Level 9.8 mg/dL (8.5-10.1) Total Bilirubin 0.2 mg/dL (0.2-1.0) Aspartate Amino Transf (AST/SGOT) 37 U/L (15-37) Alanine Aminotransferase (ALT/SGPT) 29 U/L (14-59) Alkaline Phosphatase 94 U/L (46-116) Total Protein 8.5 g/dL (6.4-8.2) Albumin 3.4 g/dL (3.4-5.0) Albumin/Globulin Ratio 0.7 (1.0-1.7) Medications Current Medications Calcium Gluconate (Calcium Gluconate) 1,000 mg 1X ONCE IVP Last administered on 05/26/21at 23:16; Start 05/26/21 at 23:00; Stop 05/26/21 at 23:01; Status DC Insulin Human Regular (HumuLIN R VIAL) 10 unit 1X ONCE IV Last administered on 05/26/21at 23:39; Start 05/26/21 at 23:00; Stop 05/26/21 at 23:01; Status DC Dextrose (Dextrose 50%-Water Syringe) 25 gm 1X ONCE IV ; Start 05/26/21 at 22:45; Stop 05/26/21 at 22:46; Status UNV Sodium Bicarbonate (Sodium Bicarb Adult 8.4% Syr) 50 meq 1X ONCE IV Last administered on 05/26/21at 23:24; Start 05/26/21 at 23:00; Stop 05/26/21 at 23:01; Status DC Furosemide (Lasix) 40 mg 1X ONCE IVP Last administered on 05/27/21at 00:24; Start 05/26/21 at 23:00; Stop 05/26/21 at 23:01; Status DC Ringer's Solution 1,000 ml @ 75 mls/hr 1X ONCE IV Last administered on 05/27/21at 00:27; Start 05/26/21 at 23:00; Stop 05/27/21 at 12:19 Dextrose 250 ml @ 500 mls/hr 1X ONCE IV Last administered on 05/26/21at 23:42; Start 05/26/21 at 23:00; Stop 05/26/21 at 23:29; Status DC Active Scripts Active Lidocaine-Prilocaine Cream (Lidocaine/Prilocaine) 30 Gm Cream..g. 1 Deloris TP UD Miralax (Polyethylene Glycol 3350) 119 Gm Powder 17 Gm PO BID 5 Days Drink 1 capful in 8 oz of water twice daily for 5 days then once a day to keep stools regular Aspirin Ec (Aspirin) 81 Mg Tablet.dr 81 Mg PO DAILYWBKFT 30 Days Clonidine Hcl 0.1 Mg Tablet 0.1 Mg PO BID Reported Hydrochlorothiazide Tablet (Hydrochlorothiazide) 25 Mg Tablet 25 Mg PO DAILY Metoprolol Succinate ( Xl ) (Metoprolol Succinate) 100 Mg Tab.er.24h 100 Mg PO DAILY Omeprazole 40 Mg Capsule.dr 1 Cap PO DAILY Vitals/I & O Vital Sign - Last 24 Hours 05/26/21 05/26/21 05/26/21 05/26/21 17:13 19:00 19:30 20:00 Temp 98.2 98.2 Pulse 63 64 62 62 Resp 24 B/P (MAP) 137/66 (89) 116/65 (82) 129/63 (85) 117/66 (83) Pulse Ox 100 100 100 100 O2 Delivery Room Air Room Air Room Air Room Air 05/26/21 05/26/21 05/26/21 05/26/21 20:30 21:00 21:30 22:00 Pulse 64 66 64 64 B/P (MAP) 127/71 (89) 125/66 (85) 138/68 (91) 124/73 (90) Pulse Ox 100 100 100 100 O2 Delivery Room Air Room Air Room Air Room Air 05/26/21 05/26/21 05/26/21 05/27/21 22:30 23:00 23:30 00:00 Pulse 60 62 62 72 B/P (MAP) 143/65 (91) 136/65 (88) 160/70 (100) 163/87 (112) Pulse Ox 100 100 100 100 O2 Delivery Room Air Room Air Room Air Room Air 05/27/21 05/27/21 05/27/21 05/27/21 00:30 01:05 01:30 03:00 Temp 98.0 98.2 98.0 98.2 Pulse 70 69 63 Resp 18 20 B/P (MAP) 145/96 (112) 121/68 (85) 131/74 (93) Pulse Ox 100 96 97 O2 Delivery Room Air Room Air 05/27/21 05/27/21 07:00 08:00 Temp 98.7 98.7 Pulse 68 Resp 18 B/P (MAP) 117/70 (86) Pulse Ox 100 O2 Delivery Room Air Room Air Justifications for Admission Other Justification Weakness, hypertensive urgency RAMESH GUERRA MD May 27, 2021 10:00
[2021-05-27] MEDS ORDERED: FERR325T14 PO (10:29)
[2021-05-27] MEDS ORDERED: FURO-69 PO (10:29)
--- NOTE | 2021-05-27 10:30 | DISCH ---
DISCHARGE INSTRUCTIONS Condition on Discharge Condition on Discharge: Stable Activity After Discharge Activity Instructions for Disc: Activity as tolerated Exercise Instruction after Dis: Walk 30 min, 5 x per week Driving Instructions after Dis: Do not drive Weight Bearing Status after Di: As tolerated Diet after Discharge Diet after Discharge: Regular Diet Texture: Regular Liquid Texture: Thin Liquid Swallowing Supervision: None needed Wound Incision Care Wound/Incision Care: No wound care needed Checks after Discharge Checks after discharge: Check blood press - daily, Check your Temp as needed Follow-Up Follow up with: PCP within 2 weeks 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
--- NOTE | 2021-05-27 11:20 | NUR ---
DISCHARGE INSTRUCTIONS GIVEN, QUESTIONS AND CONCERNS ANSWERED, PATIENTS' SON AT THE BEDSIDE FOR INTERPRETATION, ALL PERSONAL BELONGINGS GATHERED AND PLACED IN BAGS FOR DISCHARGE, SALINE LOCK REMOVED PER SHEARER HELPER, BANDAGE APPLIED.
--- NOTE | 2021-05-27 11:20 | NUR ---
PATIENT LEAVES THE UNIT PER W/C AND ACCOMPANIED BY THIS PELLET PRESS OPERATOR, EMOTIONAL SUPPORT GIVEN, FOLLOW UP APPOINTMENTS ENCOURAGED.
== END 2021-05-27 11:20 | disposition home or self-care (01) | DRG 641 ==
LOC: ER 15:59 → 5 NORTH 22:55
PROVIDERS: ADMIT Internal Medicine; ATTEND Internal Medicine
DX: E87.5 Hyperkalemia (principal); I16.0 Hypertensive urgency; E78.00 Pure hypercholesterolemia, unspecified; E78.5 Hyperlipidemia, unspecified; I12.9 Hypertensive chronic kidney disease with stage 1 through stage 4 chronic kidney disease, or unspecified chronic kidney disease; J45.909 Unspecified asthma, uncomplicated; N18.9 Chronic kidney disease, unspecified; Z87.891 Personal history of nicotine dependence; K21.9 Gastro-esophageal reflux disease without esophagitis; Z88.8 Allergy status to other drugs, medicaments and biological substances
CPT/HCPCS: 36415; 80053; 81001; 82962; 84484; 85025; 93005; 96361; 96374; 96375; J0610; J1815; J1940; J3490; J7060; J7120; 99285-25; G0378